=== PATIENT | female | born 1930 | race Caucasian/White ===

== ENCOUNTER 2022-01-30 22:06 | Inpatient (IN) ==
[2022-01-30 22:44] LABS: Basophils # (auto) 0.03 K/uL (0-0.2); Basophils % (auto) 0.5 %; Eosinophils # (auto) 0.22 K/uL (0-0.50); Eosinophils % (auto) 3.4 %; Hematocrit (blood only) 34.1 % (34.1-44.9); Hemoglobin 11.4 g/dl (12.0-16.0); Immature Granulocytes # (auto) 0.13 K/uL (0.00-0.02); Lymphocytes % (auto) 26.6 %; Mean Corpuscular Hemoglobin 29.8 pg (25.0-34.0); Mean Corpuscular Hgb Conc 33.4 g/dL (32.0-36.0); Mean Corpuscular Volume 89.3 fL (80.0-100.0); Mean Platelet Volume 10.4 fL (9.4-12.3); Monocytes # (auto) 0.52 K/uL (0.24-0.82); Monocytes % (auto) 8.2 %; Neutrophils # (auto) 3.78 K/uL (1.4-6.5); Neutrophils % (auto) 59.3 %; Platelet Count 207 K/uL (130-400); Red Blood Count 3.82 M/uL (3.93-5.22); White Blood Count 6.38 K/ul (4.8-10.8)
[2022-01-30 23:03] LABS: Albumin Globulin Ratio 1.4 (0.9-2); Albumin Level 4.6 gm/dl (3.4-5.0); BUN Creatinine Ratio 20.6 (10-20); Bilirubin,Total 0.7 mg/dl (0.2-1.0); Calcium 9.4 mg/dl (8.5-10.1); Creatinine Clr Calc Pharmacy 20.6 ml/min; Est GFR (African American) 53.3 ml/min; Globulin 3.4 gm/dl (2.5-4.0); Potassium 4.1 mmol/L (3.5-5.1)
--- NOTE | 2022-01-30 23:04 | Emergency Department Note ---
Impression & Plan Falls, Confusion, Acute UTI, Compression fracture ED Provider Note Provider: Benigno Veliz MD DATE OF SERVICE: 01/30/2022 CHIEF COMPLAINT: Falls, concern for UTI HISTORY OF PRESENT ILLNESS: Patient is a 89-year-old female history of hypothyroidism presenting from [place] where she lives reporting that she had 3 falls in the last day and the staff become concerned for possible UTI. Patient does complain of some lower back discomfort after the fall tonight. Ambulance personnel informed us that the patient may be a bit altered compared to her normal baseline and sounds who at bedside agrees. Denies significant pain in the arms or legs but states that she feels cold. Denies shortness of breath. Cannot clearly give a history of how she fell or the exact details of the falls. Talks about the computer light distracting her. Seems a bit confused. Denies abdominal pain but reports pain in her low back and right lower back. Son agrees that she is not herself and confirms that she is not on blood thinners. History of recurrent UTIs by his report. REVIEW OF SYSTEMS: A total of 10 review of systems was obtained and negative except as stated above in the HPI. PAST MEDICAL HISTORY: As noted above MEDICATIONS: Reviewed home medications reportedly currently on Cipro SOCIAL HISTORY: Resides at [place] assisted living facility PHYSICAL EXAM: GENERAL: alert and oriented to person but fatigued in appearance and not a good historian in no acute distress on stretcher Head: normocephalic and atraumatic EYES: No injection, discharge or icterus. PERRL, EOMI. NECK: Trachea midline. Supple. ENT: Mucous membranes pink and moist. LUNGS: Airway patent. No retractions. Breath sounds diminished. On home oxygen. HEART: Regular rate and rhythm. No chest wall tenderness ABDOMEN: Soft and non-tender, without guarding or rebound. BACK: Some right flank and SI joint pain. SKIN: Acyanotic, warm, dry, without rashes EXTREMITIES: Without swelling, tenderness or deformity with some healing contusion of the lower feet. No new contusion or laceration noted. No tenderness of the bilateral knees legs or ankles/feet. Tenderness with range of motion of the right greater than left hip. No significant tenderness of the upper extremities noted obvious traumatic injury. NEUROLOGICAL: No aphasia. No facial droop or slurred speech. Limited movement of the lower extremities due to pain at the hips. Sensation to gross touch normal. A bit confused regarding history. EK bpm normal sinus rhythm. Right bundle branch block is present with left axis. No acute ST segment elevation with nonspecific T wave changes. QTc 484. CONTINUOUS CARDIAC MONITORING: was ordered and showed a heart rate of 70s-90s bpm in normal sinus rhythm with right bundle branch My interpretation of 1 view chest x-ray: No evidence of free air, pneumonia, pneumothorax, or significant pulmonary edema. My interpretation of Pelvis and right hip x-ray without evidence of acute fracture or dislocation. GCS 14 somewhat confused and answers Patient's laboratory studies and imaging reviewed. Differential includes traumatic injury, infection, dehydration, metabolic abnormality, hypo/hyperglycemia, electrolyte disturbance, anemia, hypoxia, cardiac sources, intracerebral event, toxicologic, neurologic, as well as other pathologies. IMPRESSION/MEDICAL DECISION MAKING: Patient appears a bit confused. History of UTIs currently on Cipro. Straight cath be obtained. Basic labs to be obtained. Multiple falls. Some pain in the hips with movement. Given the confusion and multiple falls a complete trauma fuller scan without contrast given her age. Blood work without significant leukocytosis. No severe chemistry abnormality such as electrolyte issue or renal dysfunction. TSH is abnormal but doubt she is in myxedema coma. No fever here. CK minimally elevated but not enough for rhabdo yet. Negative COVID. Troponin not elevated and doubt this is primarily cardiac. Mild anemia. Benign abdomen on clinical exam. Patient on baseline oxygen requirement however little bit borderline around 90% with the 4 L she normally wears. Some component of the confusion could be related to the Cipro she is on. Urinalysis very concerning for still infection. Reviewed prior microbiology history of ESBL. Multiple resistances. Given a dose of ertapenem. This very well could explain her confusion. Imaging report questioned a T12 fracture may explain her pain as well as some question of possibly a T3 or T9 compression fracture. CAT scan also questions a 1.5 cm mass in the left lower lobe could be pneumonia versus other oncological or benign mass. Again getting antibiotics. Will need to be followed up and son alerted. He is updated and agreeable with the plan to stay. Given ESBL and her confusion will require care here at the hospital. Hospitalist alerted. DIAGNOSIS: Fall, confusion, acute UTI, T3,9,12 compression fracture DISPOSITION: Hospitalist will evaluate Patient was agreeable with this plan. Preliminary Findings Only See Final Report For Complete Findings CT C SPINE: Negative for cervical spine fracture or malalignment. Degenerative changes and osteopenia. Status post multilevel cervical and upper thoracic laminectomies. Incidental note is made of a prominent right jugular vein. Radiologist: Alex Hale MD Study ready at 00:21 and initial results transmitted at 01:01 Preliminary Findings Only See Final Report For Complete Findings CT ABDOMEN & PELVIS Without Contrast: There is slight loss of height of the T12 vertebral body. This is a new finding compared to a prior scan on October 18, 2021. If the patient has had falls and back pain, this could be acute. Please correlate with pain/tenderness to this particular area. Healing right L3 transverse process fracture noted. The remainder of the visualized osseous structures are intact. No evidence of abdominal pelvic visceral injury. Liver, spleen, pancreas, adrenal glands, kidneys, urinary bladder and bowel all appear intact. No pneumoperitoneum or ascites. Radiologist: Alex Hale MD Study ready at 00:20 and initial results transmitted at 01:10 Preliminary Findings Only See Final Report For Complete Findings CT CHEST Without Contrast: Mild compression fracture superior endplate of T12 noted. Not present on a prior CT abdomen and pelvis from October 18, 2021. If there has been trauma in this area, it could be acute. There is another mild superior endplate compression of T9 as well as a partial compression of the T3 vertebral body involving both superior and inferior endplates. These have no prior scans available for comparison and the fractures are of indeterminate age. None of the above fractures have significant retropulsion. No narrowing of the spinal canal due to these fractures. Old fractures of the left ninth through 12th ribs posteriorly. Old right 10th rib fracture. There is a 3 cm x 1.5 cm masslike area of consolidation in the left lower lobe posteriorly. Uncertain if it is a focal pneumonia, true lung mass, or related to trauma. Not present on the scan of October 18, 2021. This should be followed up. There are mild atelectatic changes at the lung bases bilaterally. No pneumothorax or pneumomediastinum. Cardiomegaly. No pericardial effusions. Radiologist: Alex Hale MD Study ready at 00:20 and initial results transmitted at 01:28 Preliminary Findings Only See Final Report For Complete Findings CT HEAD: Involutional changes. No acute intracranial abnormality. No hemorrhage. Osseous structures are intact. Radiologist: Alex Hale MD Study ready at 00:20 and initial results transmitted at 01:31 Past Med/Surg History Medical History Anxiety Depression Seizures Social History Smoking Status: Never smoker Preferred Language: Belgian Feels Safe at Home: Yes Allergies Allergies Allergy/AdvReac Type Severity Reaction Status Date / Time amitriptyline Allergy Unknown Unverified 12/16/21 19:15 celecoxib [From Celebrex] Allergy Unknown Unverified 12/16/21 19:15 cyclobenzaprine [From Amrix] Allergy Unknown Unverified 12/16/21 19:15 divalproex sodium Allergy Unknown Unverified 12/16/21 19:15 [From Depakote] iodine Allergy Unknown Unverified 12/16/21 19:15 scopolamine Allergy Unknown Unverified 12/16/21 19:15 tegaserod [From Zelnorm] Allergy Unknown Unverified 12/16/21 19:15 zolpidem Allergy Unknown Unverified 12/16/21 19:15 Home Meds Home Medications Medication Instructions Recorded Confirmed acetaminophen 325 mg tablet 650 mg PO Q4 PRN Fever Or Pain 10/18/21 12/16/21 (Tylenol) ascorbic acid (vitamin C) 500 mg 500 mg PO DAILY 10/18/21 12/16/21 tablet (Vitamin C) [id number]-[id number] 250 1 tab PO Q6H PRN Pain 10/18/21 12/16/21 mg-250 mg-65 mg tablet (Excedrin Extra Strength) betamethasone valerate 0.1 % 1 applic topical BID PRN dermatitis 10/18/21 12/16/21 topical ointment ciprofloxacin HCl 250 mg tablet 250 mg PO DAILY 10/18/21 12/16/21 (Cipro) escitalopram oxalate 20 mg tablet 20 mg PO QAM depression 10/18/21 12/16/21 esomeprazole magnesium 40 mg 40 mg PO DAILYBB GERD 10/18/21 12/16/21 capsule,delayed release fluticasone propionate 220 2 inh inhalation BID 10/18/21 12/16/21 mcg/actuation HFA aerosol inhaler (Flovent HFA) fremanezumab-vfrm 225 mg/1.5 mL 225 mg subcut MONTHLY 10/18/21 12/16/21 subcutaneous syringe (Ajovy Syringe) gabapentin 100 mg capsule 200 mg PO BID 10/18/21 12/16/21 hydroxyzine HCl 10 mg tablet 10 mg PO QAM PRN Itching 10/18/21 12/16/21 hydroxyzine HCl 25 mg tablet 25 mg PO HS PRN Itching 10/18/21 12/16/21 levocetirizine 5 mg tablet 5 mg PO BID 10/18/21 12/16/21 levothyroxine 50 mcg tablet 50 mcg PO DAILYBB 10/18/21 12/16/21 lifitegrast 5 % eye drops in a 1 drp OPB BID 10/18/21 12/16/21 dropperette (Xiidra) linaclotide 145 mcg capsule 145 mcg PO DAILY 10/18/21 12/16/21 (Linzess) liothyronine 5 mcg tablet 5 mcg PO QAM 10/18/21 12/16/21 mirtazapine 15 mg tablet (Remeron) 7.5 mg PO HS 10/18/21 12/16/21 multivitamin 1 tab PO DAILY 10/18/21 12/16/21 ondansetron HCl 4 mg tablet 4 mg PO Q8 PRN Nausea And Vomiting 10/18/21 12/16/21 paraben-cetyl alcohol-stearyl 1 applic topical BID 10/18/21 12/16/21 alcohol-propy glycol-sls topical signs cleaner (Cetaphil topical cleanser) quetiapine 50 mg tablet,extended 100 mg PO BID 10/18/21 12/16/21 release 24 hr (Seroquel XR) rosuvastatin 5 mg tablet (Crestor) 5 mg PO HS 10/18/21 12/16/21 sennosides 8.6 mg-docusate sodium 2 tab-cap PO HS PRN Constipation 10/18/21 12/16/21 50 mg capsule (Senna Plus) tamsulosin 0.4 mg capsule (Flomax) 0.8 mg PO HS 10/18/21 12/16/21 topiramate 50 mg tablet (Topamax) 50 mg PO BID 10/18/21 12/16/21 Isatu-Bid 1 cap PO BID 12/16/21 12/16/21 dextran 70-hypromellose eye drops 1 drp OPB QID PRN Dry Eye(S) 12/16/21 12/16/21 in a dropperette (Artificial Tears (PF) drops in a dropperette) dimethicone 1.2 %-colloidal 1 ea topical BID 12/16/21 12/16/21 oatmeal lotion (Aveeno Daily Moisturizing) hydrocortisone 1 % topical cream 1 applic topical TID PRN itchiness 12/16/21 12/16/21 ipratropium 20 mcg-albuterol 100 1 puff inhalation .Q 6 HRS WHILE 12/16/21 12/16/21 mcg/actuation mist for inhalation AWAKE (Combivent Respimat) ketorolac 10 mg tablet 10 mg PO Q6H PRN Migraine Headache 12/16/21 12/16/21 megestrol 400 mg/10 mL (40 mg/mL) 400 mg PO DAILY 12/16/21 12/16/21 oral suspension potassium bicarbonate-citric acid 25 meq PO BID 12/16/21 12/16/21 25 mEq effervescent tablet (Effer-K) tramadol 50 mg tablet 50 mg PO BID 12/16/21 12/16/21 triamcinolone acetonide 0.1 % 1 applic topical BID PRN bursitis 12/16/21 12/16/21 topical ointment vit C 250 mg-vit E 90 mg-zinc 40 1 tab PO DAILY 12/16/21 12/16/21 mg-copper 1 fc-[id number]-ospcyc capsule (PreserVision AREDS-2) Results & Data (ED) Vital Signs Vital Signs - 24 hr 01/30/22 22:28 01/30/22 22:35 01/30/22 23:42 Temperature 36.6 C Temperature Source Oral Pulse Rate 70 70 Pulse Rate [Finger] 85 Pulse Rhythm Regular Regular Pulse Strength Normal Respiratory Rate 20 20 18 Respiratory Effort / Characteristics Non-Labored Spontaneous Non-Labored Spontaneous Respiratory Depth Normal Normal Respiratory Pattern Regular Blood Pressure 139/68 Blood Pressure [Right Arm] 109/78 Blood Pressure Mean 91 Blood Pressure Mean [Right Arm] 88 Blood Pressure Position Lying Blood Pressure Position [Right Arm] Sitting Pulse Oximetry 91 92 92 Oxygen Delivery Method Nasal Cannula Nasal Cannula Nasal Cannula Oxygen Flow Rate 4 4 4 Sepsis Recent Fever Within 48 Hours No Sepsis New/Unexplained Change in Mental Status N/A Sepsis Action Taken by Nursing No Action Required 01/31/22 01:17 Temperature Temperature Source Pulse Rate Pulse Rate [Finger] 108 H Pulse Rhythm Pulse Strength Respiratory Rate 18 Respiratory Effort / Characteristics Non-Labored Spontaneous Respiratory Depth Normal Respiratory Pattern Blood Pressure Blood Pressure [Right Arm] 126/66 Blood Pressure Mean Blood Pressure Mean [Right Arm] 86 Blood Pressure Position Blood Pressure Position [Right Arm] Lying Pulse Oximetry 93 Oxygen Delivery Method Nasal Cannula Oxygen Flow Rate 4 Sepsis Recent Fever Within 48 Hours Sepsis New/Unexplained Change in Mental Status Sepsis Action Taken by Nursing Laboratory Data Result diagrams: 01/30/22 22:21 01/30/22 22:21 Lab Results 01/30/22 01/30/22 01/30/22 Range/Units 22:21 22:21 22:21 WBC 6.38 (4.8-10.8) K/ul RBC 3.82 L (3.93-5.22) M/uL Hgb 11.4 L (12.0-16.0) g/dl Hct 34.1 (34.1-44.9) % MCV 89.3 (80.0-100.0) fL MCH 29.8 (25.0-34.0) pg MCHC 33.4 (32.0-36.0) g/dL RDW Std Deviation 55.0 H (36.4-46.3) fL RDW Coeff of Nancy 17.0 H (11.5-14.5) % Plt Count 207 (130-400) K/uL MPV 10.4 (9.4-12.3) fL Immature Gran % (Auto) 2.0 % Neut % (Auto) 59.3 % Lymph % (Auto) 26.6 % [place] % (Auto) 8.2 % Eos % (Auto) 3.4 % Baso % (Auto) 0.5 % Neut # (Auto) 3.78 (1.4-6.5) K/uL Lymph # (Auto) 1.70 (1.2-3.4) K/uL [place] # (Auto) 0.52 (0.24-0.82) K/uL Eos # (Auto) 0.22 (0-0.50) K/uL Baso # (Auto) 0.03 (0-0.2) K/uL Immature Gran # (Auto) 0.13 H (0.00-0.02) K/uL Sodium 138 (136-145) mmol/L Potassium 4.1 (3.5-5.1) mmol/L Chloride 107 (98-107) mmol/L Carbon Dioxide 21 (21-32) mmol/L Anion Gap 10 (3-11) BUN 22 (6-23) mg/dl Creatinine 1.07 (0.6-1.2) mg/dl Est Cr Clr Drug Dosing 20.6 ml/min Est GFR ( Amer) 53.3 ml/min Est GFR (Non-Af Amer) 46.0 ml/min BUN/Creatinine Ratio 20.6 H (10-20) Glucose 86 (70-99(Fasting)) mg/dl Calcium 9.4 (8.5-10.1) mg/dl Total Bilirubin 0.7 (0.2-1.0) mg/dl AST 31 (13-39) U/L ALT 20 (7-52) U/L Alkaline Phosphatase 74 (34-104) U/L Total Creatine Kinase 476 H (26-192) U/L Troponin I High Sens 9.3 (0-14) pg/ml Total Protein 8.0 (6.0-8.3) gm/dl Albumin 4.6 (3.4-5.0) gm/dl Globulin 3.4 (2.5-4.0) gm/dl Albumin/Globulin Ratio 1.4 (0.9-2) TSH 26.610 H (0.300-4.500) uIu/ml Free T4 0.45 L (0.61-1.60) ng/dl Urine Color Urine Appearance (Clear) Urine pH (4.5-7.5) Ur Specific [place] (1.000-1.030) Urine Protein (Negative) Urine Glucose (UA) (Negative) Urine Ketones (Negative) Urine Blood (Negative) Urine Nitrite (Negative) Urine Bilirubin (Negative) Urine Urobilinogen (Negative) Ur Leukocyte Esterase (Negative) Urine WBC (Auto) (0-5) /hpf Urine RBC (Auto) (0-4) /hpf U Hyaline Cast (Auto) (0-5) /lpf U Epithel Cells (Auto) (0-5) /lpf Urine Bacteria (Auto) (Negative) SARS-CoV-2, RNA, NAAT (NEGATIVE) 01/30/22 01/30/22 Range/Units 22:25 23:39 WBC (4.8-10.8) K/ul RBC (3.93-5.22) M/uL Hgb (12.0-16.0) g/dl Hct (34.1-44.9) % MCV (80.0-100.0) fL MCH (25.0-34.0) pg MCHC (32.0-36.0) g/dL RDW Std Deviation (36.4-46.3) fL RDW Coeff of Nancy (11.5-14.5) % Plt Count (130-400) K/uL MPV (9.4-12.3) fL Immature Gran % (Auto) % Neut % (Auto) % Lymph % (Auto) % [place] % (Auto) % Eos % (Auto) % Baso % (Auto) % Neut # (Auto) (1.4-6.5) K/uL Lymph # (Auto) (1.2-3.4) K/uL [place] # (Auto) (0.24-0.82) K/uL Eos # (Auto) (0-0.50) K/uL Baso # (Auto) (0-0.2) K/uL Immature Gran # (Auto) (0.00-0.02) K/uL Sodium (136-145) mmol/L Potassium (3.5-5.1) mmol/L Chloride (98-107) mmol/L Carbon Dioxide (21-32) mmol/L Anion Gap (3-11) BUN (6-23) mg/dl Creatinine (0.6-1.2) mg/dl Est Cr Clr Drug Dosing ml/min Est GFR ( Amer) ml/min Est GFR (Non-Af Amer) ml/min BUN/Creatinine Ratio (10-20) Glucose (70-99(Fasting)) mg/dl Calcium (8.5-10.1) mg/dl Total Bilirubin (0.2-1.0) mg/dl AST (13-39) U/L ALT (7-52) U/L Alkaline Phosphatase (34-104) U/L Total Creatine Kinase (26-192) U/L Troponin I High Sens (0-14) pg/ml Total Protein (6.0-8.3) gm/dl Albumin (3.4-5.0) gm/dl Globulin (2.5-4.0) gm/dl Albumin/Globulin Ratio (0.9-2) TSH (0.300-4.500) uIu/ml Free T4 (0.61-1.60) ng/dl Urine Color Yellow Urine Appearance Cloudy A (Clear) Urine pH 7.5 (4.5-7.5) Ur Specific [place] 1.019 (1.000-1.030) Urine Protein Negative (Negative) Urine Glucose (UA) Negative (Negative) Urine Ketones Negative (Negative) Urine Blood Negative (Negative) Urine Nitrite Positive A (Negative) Urine Bilirubin Negative (Negative) Urine Urobilinogen Negative (Negative) Ur Leukocyte Esterase 2+ H (Negative) Urine WBC (Auto) >30 H (0-5) /hpf Urine RBC (Auto) 0-4 (0-4) /hpf U Hyaline Cast (Auto) 1-5 (0-5) /lpf U Epithel Cells (Auto) 0-5 (0-5) /lpf Urine Bacteria (Auto) 4+ H (Negative) SARS-CoV-2, RNA, NAAT NEGATIVE (NEGATIVE) Administered Medications Discontinued Medications Ertapenem 500 mg/ Syringe 5 mls @ 2 mls/min IV ONCE ONE Stop: 01/31/22 00:33 Last Admin: 01/31/22 00:55 Dose: 2 mls/min Documented By: CC Discharge Plan Visit Data Chief Complaint: Fall ED Provider: Benigno Veliz Discharge Problem: Falls, Confusion, Acute UTI, Compression fracture Patient Disposition: Being Evaluated by Hospitalist Forms Stand Alone Forms: My [facility] Prescriptions Prescriptions: No Action Ajovy Syringe 225 mg/1.5 mL syringe 225 mg SUBCUT MONTHLY Rx Instructions: administer on Friday of every month ascorbic acid (vitamin C) [Vitamin C] 500 mg Tablet 500 mg PO DAILY ciprofloxacin HCl [Cipro] 250 mg Tablet 250 mg PO DAILY escitalopram oxalate 20 mg tablet 20 mg PO QAM esomeprazole magnesium 40 mg capsule,delayed release(DR/EC) 40 mg PO DAILYBB fluticasone propionate [Flovent HFA] 220 mcg/actuation HFA aerosol inhaler 2 inh INHALATION BID Rx Instructions: 2 puffs into lungs 2 times a day gabapentin 100 mg capsule 200 mg PO BID levocetirizine 5 mg tablet 5 mg PO BID levothyroxine 50 mcg tablet 50 mcg PO DAILYBB Linzess 145 mcg capsule 145 mcg PO DAILY liothyronine 5 mcg tablet 5 mcg PO QAM mirtazapine [Remeron] 15 mg Tablet 7.5 mg PO HS Rx Instructions: take 1/2 tablet by mouth at bedtime multivitamin Tablet 1 tab PO DAILY hydroxyzine HCl 10 mg tablet 10 mg PO QAM PRN (Reason: Itching) hydroxyzine HCl 25 mg tablet 25 mg PO HS PRN (Reason: Itching) ondansetron HCl [Zofran] 4 mg Tablet 4 mg PO Q8 PRN (Reason: Nausea And Vomiting) Excedrin Extra Strength 250-250-65 mg Tablet 1 tab PO Q6H MDD 4 doses PRN (Reason: Pain) Rx Instructions: do not exceed for doses in 24 hours Senna Plus 8.6-50 mg Capsule 2 tab-cap PO HS PRN (Reason: Constipation) Rx Instructions: take 2 tabs (17.2/100 mg) by mouth at bedtime for constipation betamethasone valerate 0.1 % ointment 1 applic TOPICAL BID PRN (Reason: dermatitis) quetiapine [Seroquel XR] 50 mg Tablet Extended Release 24 Hr 100 mg PO BID Rx Instructions: take 2 tablets by mouth twice a day rosuvastatin [Crestor] 5 mg Tablet 5 mg PO HS tamsulosin [Flomax] 0.4 mg Capsule 0.8 mg PO HS Rx Instructions: 2 capsule dose topiramate [Topamax] 50 mg Tablet 50 mg PO BID Xiidra 5 % dropperette 1 drp OPB BID Cetaphil Cleanser 1 applic TOPICAL BID acetaminophen [Tylenol] 325 mg Tablet 650 mg PO Q4 MDD 3g PRN (Reason: Fever Or Pain) Rx Instructions: use for temperature > 100f or mild pain Combivent Respimat 20-100 mcg/actuation Mist 1 puff INHALATION .Q 6 HRS WHILE AWAKE Effer-K 25 mEq Tablet, Effervescent 25 meq PO BID Rx Instructions: dissolve 1 tablet in 4 ounces of water & drink 2 times a day with meals and sip slowly over 5-10 minutes megestrol 400 mg/10 mL (40 mg/mL) suspension 400 mg PO DAILY Rx Instructions: take 10 ml dose PreserVision AREDS-2 250-90-40-1 mg Capsule 1 tab PO DAILY tramadol 50 mg tablet 50 mg PO BID Isatu-Bid 1 cap PO BID Aveeno Daily Moisturizing 1.2 % Lotion 1 ea TOPICAL BID Rx Instructions: apply to areas on back for itching ketorolac 10 mg Tablet 10 mg PO Q6H PRN (Reason: Migraine Headache) Rx Instructions: do not take with migraine relief medications Artificial Tears (PF) Dropperette 1 drp OPB QID PRN (Reason: Dry Eye(S)) hydrocortisone 1 % Cream 1 applic TOPICAL TID PRN (Reason: itchiness) triamcinolone acetonide 0.1 % Ointment 1 applic TOPICAL BID PRN (Reason: bursitis) Referrals Referrals: [facility] [Primary Care Provider] -
[2022-01-30 23:10] LABS: Troponin I High Sensitivity 9.3 pg/ml (0-14)
[2022-01-30 23:18] LABS: Thyroid Stimulating Hormone 26.61 uIu/ml (0.300-4.500)
[2022-01-30 23:52] LABS: T4 Free Thyroxine 0.45 ng/dl (0.61-1.60)
[2022-01-30 23:57] LABS: Appearance Urine Cloudy (Clear); Bacteria Urine Automated 4+ (Negative); Bilirubin Urine Negative (Negative); Blood Urine Negative (Negative); Color Urine Yellow; Epithelial Cell Urine Auto 0-5 /lpf (0-5); Glucose Urine UA Negative (Negative); Ketones Urine Negative (Negative); Leukocyte Esterase Urine 2+ (Negative); Nitrite Urine Positive (Negative); Protein Urine Negative (Negative); RBC Urine Automated 0-4 /hpf (0-4); Specific Gravity Urine 1.019 (1.000-1.030); Urobilinogen Urine Negative (Negative); WBC Urine Automated >30 /hpf (0-5); pH Urine 7.5 (4.5-7.5)
[2022-01-31] MEDS ORDERED: ERTAPENEM SODIUM 500 MG in SYRINGE 0 ML IV ONE (00:31)
--- NOTE | 2022-01-31 01:48 | History & Physical Report ---
Date of Service January 31, 2022 Assessment & Plan (1) Acute hypoxemic respiratory failure: Plan: Secondary to COPD exacerbation secondary to possible aspiration pneumonia Complicated UTI hx recurrent UTIs (history of ESBL organism) on chronic ciprofloxacin suppress ion Rx History overactive bladder as per records No sepsis for now Thoracic compression fracture secondary to recurrent falls History ambulatory dysfunction Mild rhabdomyolysis secondary to fall hx TIA hyperlipidemia on statin Rx GERD, stable on regimen hypothyroidism, TSH elevated with low FT4 New onset anemia, FOBT done at the ER was negative mood disorder, at baseline mild dementia as per family, some confusion from baseline secondary to illness Medical telemetry Supplemental O2 Baseline ABG Nebs, steroid course Ertapenem for possible aspiration pneumonia, complicated UTI (hx ESBL) Urology consult as per patient family request Re: Recurrent UTIs May benefit from ID consult pending final urine CS results Aspiration precautions, swallow eval Lidoderm patch for thoracic compression fracture Orthopedic spine consult Re: Thoracic compression fracture PT OT eval Follow CPK response to IVF Appropriate hold statin for now Anemia work-up, transfuse PRBC if hemoglobin less than 8 and for symptomatic anemia Increase maintenance levothyroxine dose from 50 to 75 mcg daily and recheck TSH outpatient next month DVT prophylaxis Lovenox subcu DNR as per patient's prior directives as per son/POA, Mr. Nicolas Joshi. He requests updates from providers through [phone]. Total critical care time was 45 minutes. Text document was generated using [employer] - [employer] voice recognition software. It may contain grammatical or spelling errors. Kindly contact undersigned for clarification of any documentation item in question. History of Present Illness Chief Complaint: Confusion, weakness, recurrent falls Primary Care Provider: Dr. Kermit Oreilly of [place] History obtained from patient, family, and records. Medical history significant for COPD, hx TIA, hyperlipidemia, hypothyroidism, recurrent UTIs (history of ESBL organism) on chronic ciprofloxacin suppression Rx, history of overactive bladder as per records, GERD, hypothyroidism, mood disorder, mild dementia as per family. Patient moved to local personal care facility from [facility] last October 2021 to be close to her son who lives locally. Patient noted to be more confused than usual the last week as per son. 3 falls noted yesterday Patient complaining of low back discomfort after fall. Back pain going to the legs as per patient. No fever, no chills. Patient denies chest pain, no shortness of breath. Patient noted to be coughing by son. Aspiration concerns as per son. O2 sats noted to be 80s at 1 point during ER stay. Ertapenem administered at the ER. Medical History as above Surgical History : neck surgeries, ARISTEO Family History : Heart disease, DM, stroke Personal/Social history : Non-smoker, no EtOH intake, retired infection control nurse, [facility] [facility] resident Allergies Allergy/AdvReac Type Severity Reaction Status Date / Time amitriptyline Allergy Unknown Unverified 12/16/21 19:15 celecoxib [From Celebrex] Allergy Unknown Unverified 12/16/21 19:15 cyclobenzaprine [From Amrix] Allergy Unknown Unverified 12/16/21 19:15 divalproex sodium Allergy Unknown Unverified 12/16/21 19:15 [From Depakote] iodine Allergy Unknown Unverified 12/16/21 19:15 scopolamine Allergy Unknown Unverified 12/16/21 19:15 tegaserod [From Zelnorm] Allergy Unknown Unverified 12/16/21 19:15 zolpidem Allergy Unknown Unverified 12/16/21 19:15 Home Medications Medication Instructions Recorded Confirmed Type acetaminophen 325 mg tablet 650 mg PO Q4 PRN Fever Or Pain 10/18/21 12/16/21 History (Tylenol) ascorbic acid (vitamin C) 500 mg 500 mg PO DAILY 10/18/21 12/16/21 History tablet (Vitamin C) mbyrdje-wxvjdwhumzfkl-uqjghboq 250 1 tab PO Q6H PRN Pain 10/18/21 12/16/21 History mg-250 mg-65 mg tablet (Excedrin Extra Strength) betamethasone valerate 0.1 % 1 applic topical BID PRN dermatitis 10/18/21 1008/22 History topical ointment ciprofloxacin HCl 250 mg tablet 250 mg PO DAILY 10/18/21 12/16/21 History (Cipro) escitalopram oxalate 20 mg tablet 20 mg PO QAM depression 10/18/21 12/16/21 History esomeprazole magnesium 40 mg 40 mg PO DAILYBB GERD 10/18/21 12/16/21 History capsule,delayed release fluticasone propionate 220 2 inh inhalation BID 10/18/21 12/16/21 History mcg/actuation HFA aerosol inhaler (Flovent HFA) fremanezumab-vfrm 225 mg/1.5 mL 225 mg subcut MONTHLY 10/18/21 12/16/21 History subcutaneous syringe (Ajovy Syringe) gabapentin 100 mg capsule 200 mg PO BID 10/18/21 12/16/21 History hydroxyzine HCl 10 mg tablet 10 mg PO QAM PRN Itching 10/18/21 12/16/21 History hydroxyzine HCl 25 mg tablet 25 mg PO HS PRN Itching 10/18/21 12/16/21 History levocetirizine 5 mg tablet 5 mg PO BID 10/18/21 12/16/21 History levothyroxine 50 mcg tablet 50 mcg PO DAILYBB 10/18/21 12/16/21 History lifitegrast 5 % eye drops in a 1 drp OPB BID 10/18/21 12/16/21 History dropperette (Xiidra) linaclotide 145 mcg capsule 145 mcg PO DAILY 10/18/21 12/16/21 History (Linzess) liothyronine 5 mcg tablet 5 mcg PO QAM 10/18/21 12/16/21 History mirtazapine 15 mg tablet (Remeron) 7.5 mg PO HS 10/18/21 12/16/21 History multivitamin 1 tab PO DAILY 10/18/21 12/16/21 History ondansetron HCl 4 mg tablet 4 mg PO Q8 PRN Nausea And Vomiting 10/18/21 12/16/21 History quetiapine 50 mg tablet,extended 100 mg PO BID 10/18/21 12/16/21 History release 24 hr (Seroquel XR) rosuvastatin 5 mg tablet (Crestor) 5 mg PO HS 10/18/21 12/16/21 History sennosides 8.6 mg-docusate sodium 2 tab-cap PO HS PRN Constipation 10/18/21 12/16/21 History 50 mg capsule (Senna Plus) tamsulosin 0.4 mg capsule (Flomax) 0.8 mg PO HS 10/18/21 12/16/21 History topiramate 50 mg tablet (Topamax) 50 mg PO BID 10/18/21 12/16/21 History Isatu-Bid 1 cap PO BID 12/16/21 12/16/21 History dextran 70-hypromellose eye drops 1 drp OPB QID PRN Dry Eye(S) 12/16/21 12/16/21 History in a dropperette (Artificial Tears (PF) drops in a dropperette) dimethicone 1.2 %-colloidal 1 ea topical BID 12/16/21 12/16/21 History oatmeal lotion (Aveeno Daily Moisturizing) hydrocortisone 1 % topical cream 1 applic topical TID PRN itchiness 12/16/21 12/16/21 History ipratropium 20 mcg-albuterol 100 1 puff inhalation .Q 6 HRS WHILE 12/16/21 12/16/21 History mcg/actuation mist for inhalation AWAKE (Combivent Respimat) ketorolac 10 mg tablet 10 mg PO Q6H PRN Migraine Headache 12/16/21 12/16/21 History megestrol 400 mg/10 mL (40 mg/mL) 400 mg PO DAILY 12/16/21 12/16/21 History oral suspension tramadol 50 mg tablet 50 mg PO BID 12/16/21 12/16/21 History triamcinolone acetonide 0.1 % 1 applic topical BID PRN bursitis 12/16/21 12/16/21 History topical ointment vit C 250 mg-vit E 90 mg-zinc 40 1 tab PO DAILY 12/16/21 12/16/21 History mg-copper 1 eg-nfbkmz-ltwmal capsule (PreserVision AREDS-2) Past Med/Surg History Medical History Anxiety Depression Seizures Social History Smoking Status: Unknown if ever smoked Hx Alcohol Use: No Hx Substance Use: No Preferred Language: Yoruba Communication Ability: Effective Waste Minimization Technician Required: No Current Living Situation: Personal Care Facility Current Living Situation Comment: Lives in personal care facility Other Information That Helps Us Care for You: No Feels Safe at Home: Yes Safety Concerns: Feels Safe At This Time Assistive Devices: Oxygen - Continuous Review of Systems Review of Systems: As per HPI, all other systems reviewed and negative Physical Exam Physical Exam: GENERAL: uncomfortable, slightly hard of hearing, oriented to place, no respiratory distress SKIN: Pallor, warm HEENT: Pale palpebral conjunctivae, no ptosis, dry buccal mucosa, nasal cannula in place NECK : Supple, no tenderness CHEST : Decreased breath sounds, no tenderness HEART : RRR, no obvious murmurs ABDOMEN: Some distention, nontender RECTAL : Intact sphincter, brown stool (FOBT negative) BACK :mid back tenderness, negative straight leg raise test EXTREMITIES : Minimal LE swelling, no LE tenderness, no other conspicuous deformities noted NEUROLOGIC : Oriented to place, no facial asymmetry, slightly hard of hearing, gait and stance not assessed Results & Data Results & Data ([facility]) Vital Signs (Past 12 Hours) Vital Signs Temp Pulse Pulse Resp BP BP Pulse Ox 01/31/22 01:17 108 H 18 126/66 93 01/30/22 23:42 85 18 109/78 92 01/30/22 22:35 70 20 92 01/30/22 22:28 36.6 C 70 20 139/68 91 O2 Del Method O2 Flow Rate 01/31/22 01:17 Nasal Cannula 4 01/30/22 23:42 Nasal Cannula 4 01/30/22 22:35 Nasal Cannula 4 01/30/22 22:28 Nasal Cannula 4 Laboratory Results Laboratory Results WBC 6.38 K/ul (4.8-10.8) 01/30/22 22:21 RBC 3.82 M/uL (3.93-5.22) L 01/30/22 22:21 Hgb 11.4 g/dl (12.0-16.0) L 01/30/22 22:21 Hct 34.1 % (34.1-44.9) 01/30/22 22:21 MCV 89.3 fL (80.0-100.0) 01/30/22 22:21 MCH 29.8 pg (25.0-34.0) 01/30/22 22:21 MCHC 33.4 g/dL (32.0-36.0) 01/30/22 22:21 RDW Std Deviation 55.0 fL (36.4-46.3) H 01/30/22 22:21 RDW Coeff of Nancy 17.0 % (11.5-14.5) H 01/30/22 22:21 Plt Count 207 K/uL (130-400) 01/30/22 22:21 MPV 10.4 fL (9.4-12.3) 11/30/22 22:21 Immature Gran % (Auto) 2.0 % 01/30/22 22:21 Neut % (Auto) 59.3 % 01/30/22 22:21 Lymph % (Auto) 26.6 % 01/30/22 22:21 [place] % (Auto) 8.2 % 01/30/22 22:21 Eos % (Auto) 3.4 % 01/30/22 22:21 Baso % (Auto) 0.5 % 01/30/22 22:21 Neut # (Auto) 3.78 K/uL (1.4-6.5) 01/30/22 22:21 Lymph # (Auto) 1.70 K/uL (1.2-3.4) 01/30/22 22:21 [place] # (Auto) 0.52 K/uL (0.24-0.82) 01/30/22 22:21 Eos # (Auto) 0.22 K/uL (0-0.50) 01/30/22 22:21 Baso # (Auto) 0.03 K/uL (0-0.2) 01/30/22 22:21 Immature Gran # (Auto) 0.13 K/uL (0.00-0.02) H 01/30/22 22:21 Sodium 138 mmol/L (136-145) 01/30/22 22:21 Potassium 4.1 mmol/L (3.5-5.1) 01/30/22 22:21 Chloride 107 mmol/L (98-107) 01/30/22 22:21 Carbon Dioxide 21 mmol/L (21-32) 01/30/22 22:21 Anion Gap 10 (3-11) 01/30/22 22:21 BUN 22 mg/dl (6-23) 01/30/22 22:21 Creatinine 1.07 mg/dl (0.6-1.2) 01/30/22 22:21 Est Cr Clr Drug Dosing 20.6 ml/min 01/30/22 22:21 Est GFR ( Amer) 53.3 ml/min 01/30/22 22:21 Est GFR (Non-Af Amer) 46.0 ml/min 01/30/22 22:21 BUN/Creatinine Ratio 20.6 (10-20) H 01/30/22 22:21 Glucose 86 mg/dl (70-99(Fasting)) 01/30/22 22:21 Calcium 9.4 mg/dl (8.5-10.1) 01/30/22 22:21 Total Bilirubin 0.7 mg/dl (0.2-1.0) 01/30/22 22:21 AST 31 U/L (13-39) 01/30/22 22:21 ALT 20 U/L (7-52) 01/30/22 22:21 Alkaline Phosphatase 74 U/L (34-104) 01/30/22 22:21 Total Creatine Kinase 476 U/L (26-192) H 01/30/22 22:21 Troponin I High Sens 9.3 pg/ml (0-14) 01/30/22 22: Total Protein 8.0 gm/dl (6.0-8.3) 01/30/22 22:21 Albumin 4.6 gm/dl (3.4-5.0) 01/30/22 22:21 Globulin 3.4 gm/dl (2.5-4.0) 01/30/22 22:21 Albumin/Globulin Ratio 1.4 (0.9-2) 01/30/22 22:21 TSH 26.610 uIu/ml (0.300-4.500) H 01/30/22 22:21 Free T4 0.45 ng/dl (0.61-1.60) L 01/30/22 22:21 Urine Color Yellow 01/30/22 23:39 Urine Appearance Cloudy (Clear) A 01/30/22 23:39 Urine pH 7.5 (4.5-7.5) 01/30/22 23:39 Ur Specific [place] 1.019 (1.000-1.030) 01/30/22 23:39 Urine Protein Negative (Negative) 01/30/22 23:39 Urine Glucose (UA) Negative (Negative) 01/30/22 23:39 Urine Ketones Negative (Negative) 01/30/22 23:39 Urine Blood Negative (Negative) 01/30/22 23:39 Urine Nitrite Positive (Negative) A 01/30/22 23:39 Urine Bilirubin Negative (Negative) 01/30/22 23:39 Urine Urobilinogen Negative (Negative) 01/30/22 23:39 Ur Leukocyte Esterase 2+ (Negative) H 01/30/22 23:39 Urine WBC (Auto) >30 /hpf (0-5) H 01/30/22 23:39 Urine RBC (Auto) 0-4 /hpf (0-4) 01/30/22 23:39 U Hyaline Cast (Auto) 1-5 /lpf (0-5) 01/30/22 23:39 U Epithel Cells (Auto) 0-5 /lpf (0-5) 01/30/22 23:39 Urine Bacteria (Auto) 4+ (Negative) H 01/30/22 23:39 SARS-CoV-2, RNA, NAAT NEGATIVE (NEGATIVE) 01/30/22 22:[address] head initial read: Involutional changes. No acute intracranial abnormality. No hemorrhage. Osseous structures are intac CT cervical spine initial read: Negative for cervical spine fracture or malalignment. Degenerative changes and osteopenia. Status post multilevel cervical and upper thoracic laminectomies. Incidental note is made of a prominent right jugular vein. CT chest initial read: Mild compression fracture superior endplate of T12 noted. Not present on a prior CT abdomen and pelvis from2021. If there has been trauma in this area, it could be acute. There is another mild superior endplate compression of T9 aswell as a partial compression of the T3 vertebral bodyinvolving both superior and inferior endplates. These have no prior scans available for comparison and the fractures are of indeterminate age. None of the above fractures have significant retropulsion. No narrowing of the spinal canal due to these fractures. Old fractures of the left ninth through 12th ribs posteriorly. Old right 10th rib fracture. There is a 3 cm x 1.5 cmmasslike area of consolidation in the left lower lobe posteriorly. Uncertain if it is a focal pneumonia, true lung mass, or related to trauma. Not present on the scan of October 18, 2021. This should be followed up. There are mild atelectatic changes at the lung bases bilaterally. No pneumothorax or pneumomediastinum. Cardiomegaly. No pericardial effusions. CT abdomen pelvis initial read: There is slight loss of height of the T12 vertebral body. This is a newfinding compared to a prior scan on October 18, 2021. If the patient has had falls and back pain, this could be acute. Please correlate with pain/tenderness to this particular area. Healing right L3 transverse process fracture noted. The remainder of the visualized osseous structures are intact. No evidence of abdominal pelvic visceral injury. Liver, spleen, pancreas, adrenal glands, kidneys, urinarybladder and bowel all appear intact. No pneumoperitoneumor ascites. EKG as per my interpretation : rate 75, NSR, LAD, LAFB, RBBB T wave abnormalities inferior leads
[2022-01-31] MEDS ORDERED: XOPENEX/ATROVENT 1.25mg/0.5MG NEB COMBO NEB STA (02:21)
[2022-01-31] MEDS ORDERED: IPRATROPIUM BROMIDE NEB SOLN 0.02% 2.5 ML VIAL INH STA (02:28)
[2022-01-31] MEDS ORDERED: methylPREDNISolone 20 MG in SYRINGE 0 ML IV STA ×2 (02:29→04:10)
[2022-01-31] MEDS ORDERED: LEVALBUTEROL 1.25MG/0.5ML NEB INH STA (02:29)
[2022-01-31] MEDS ORDERED: SODIUM CHLORIDE 0.9% 1000ML 1,000 ML IV ONE (02:35)
[2022-01-31] MEDS: LIDOCAINE 5% 1 PATCH TD SCH (03:01)
[2022-01-31 03:17] LABS: Base Excess ABG -1.5 mEq/L (-9-1.8); HCO3 ABG 21 mmol/L (19-24); Oxygen Saturation ABG 98.8 % (90-95); PCO2 ABG 29 mmHg (35-46); PO2 ABG 81 mmHg (80-95); pH ABG 7.47 (7.35-7.45)
[2022-01-31 03:18] LABS: Allen Test Pos (Pos)
--- NOTE | 2022-01-31 03:53 | Urology Consultation ---
Date of Consultation January 31, 2022 Assessment & Plan (1) Acute UTI: Patient has been admitted on the hospitalist service secondary to her recent falls. Urology has been asked to evaluate the patient secondary to a recurrent urinary tract infection. Recommend proceeding as follows: As noted the patient had an E. coli urinary tract infection recently with multiple resistances, therefore we recommend continuing broad-spectrum antibiotics. The patient has thus far received ertapenem in the previous urine culture shows that E. coli UTI was sensitive to this medication. Would recommend to continue this medication until most recent culture is available at which time antibiotics can be further tailored based on these results. The primary service has ordered patient to be bladder scanned every 8 hours to evaluate for urinary retention. If patient is noted to have high postvoid residuals consideration be given to either straight cathing the patient and placing a Canas catheter to ensure maximal bladder drainage. Additional recommendations be forthcoming based on future culture results as well as bladder scan results. History of Present Illness History of Present Illness This is an 89-year-old female who presented to [facility] secondary to suffering recurrent falls over the past several days. There is concern from the staff at the patient's facility where she lives that she had a urinary tract infection. I did asked the patient about her fall and she merely said that she just fell on the floor and could not provide any further details. Since her fall she notes some lower back discomfort. She denies any chest pain or shortness of breath. She denies any nausea or vomiting. I did asked the patient about urologic symptoms. She does not report any dysuria. She also denies any urinary frequency. She feels as though she can empty her bladder the hallway when she urinates. Patient's records were reviewed and it does appear the patient had a urinary tract infection on 11/29/2021. Cultures revealed patient had E. coli with multiple resistances. This culture did reveal that the E. coli was sensitive to Zosyn, meropenem, Macrobid, ertapenem, and tobramycin. Patient was unable to tell me any details regarding the treatment of this urinary tract infection. Since arrival to the emergency department at this time the patient has had labs and imaging which independent reviewed. CBC revealed white blood cell count and hematocrit within normal range. Her hemoglobin was slightly low at 11.4. Platelet count was normal. Chemistry profile showed sodium, potassium, BUN, and creatinine were all within normal range. Urinalysis showed cloudy urine with positive nitrites. There is 2+ leukocyte Estrace on the specimen along with greater than 30 white blood cells per high-power field and 4+ bacteria. A COVID test was noted to be negative. A CT scan of the cervical spine showed no fractures or malalignment of the cervical spine. A CT scan of the head showed no acute intracranial abnormalities and no hemorrhage. A CT scan of the chest showed a compression fracture at the T12 level. There are also compression fractures at the T9 and T3 levels as well. Old fractures of the left ninth through 12th ribs posteriorly were noted. There is an old fracture of the right 10th rib. There is concern the patient had a consolidation in the left lower lobe and was unclear if this represented a lung mass or pneumonia. There is no pneumothorax or pneumomediastinum. A CT scan of the abdomen showed a potential compression fracture at the T12 level. There is no evidence of intra-abdominal injury. There is no pneumoperitoneum. At the time of my interview she was resting comfortably in bed and she was not in any distress. Allergies Allergy/AdvReac Type Severity Reaction Status Date / Time amitriptyline Allergy Unknown Unverified 12/16/21 19:15 celecoxib [From Celebrex] Allergy Unknown Unverified 12/16/21 19:15 cyclobenzaprine [From Amrix] Allergy Unknown Unverified 12/16/21 19:15 divalproex sodium Allergy Unknown Unverified 12/16/21 19:15 [From Depakote] iodine Allergy Unknown Unverified 12/16/21 19:15 scopolamine Allergy Unknown Unverified 12/16/21 19:15 tegaserod [From Zelnorm] Allergy Unknown Unverified 12/16/21 19:15 zolpidem Allergy Unknown Unverified 12/16/21 19:15 Home Medications Medication Instructions Recorded Confirmed Type acetaminophen 325 mg tablet 650 mg PO Q4 PRN Fever Or Pain 10/18/21 12/16/21 History (Tylenol) ascorbic acid (vitamin C) 500 mg 500 mg PO DAILY 10/18/21 12/16/21 History tablet (Vitamin C) dsabcsi-urmkoyzccemnu-pxvcoqko 250 1 tab PO Q6H PRN Pain 10/18/21 12/16/21 History mg-250 mg-65 mg tablet (Excedrin Extra Strength) betamethasone valerate 0.1 % 1 applic topical BID PRN dermatitis 10/18/21 12/16/21 History topical ointment ciprofloxacin HCl 250 mg tablet 250 mg PO DAILY 10/18/21 12/16/21 History (Cipro) escitalopram oxalate 20 mg tablet 20 mg PO QAM depression 10/18/21 12/16/21 History esomeprazole magnesium 40 mg 40 mg PO DAILYBB GERD 10/18/21 12/16/21 History capsule,delayed release fluticasone propionate 220 2 inh inhalation BID 10/18/21 12/16/21 History mcg/actuation HFA aerosol inhaler (Flovent HFA) fremanezumab-vfrm 225 mg/1.5 mL 225 mg subcut MONTHLY 10/18/21 12/16/21 History subcutaneous syringe (Ajovy Syringe) gabapentin 100 mg capsule 200 mg PO BID 10/18/21 12/16/21 History hydroxyzine HCl 10 mg tablet 10 mg PO QAM PRN Itching 10/18/21 12/16/21 History hydroxyzine HCl 25 mg tablet 25 mg PO HS PRN Itching 10/18/21 12/16/21 History levocetirizine 5 mg tablet 5 mg PO BID 10/18/21 12/16/21 History levothyroxine 50 mcg tablet 50 mcg PO DAILYBB 10/18/21 12/16/21 History lifitegrast 5 % eye drops in a 1 drp OPB BID 10/18/21 12/16/21 History dropperette (Xiidra) linaclotide 145 mcg capsule 145 mcg PO DAILY 10/18/21 12/16/21 History (Linzess) liothyronine 5 mcg tablet 5 mcg PO QAM 10/18/21 12/16/21 History mirtazapine 15 mg tablet (Remeron) 7.5 mg PO HS 10/18/21 12/16/21 History multivitamin 1 tab PO DAILY 10/18/21 12/16/21 History ondansetron HCl 4 mg tablet 4 mg PO Q8 PRN Nausea And Vomiting 10/18/21 12/16/21 History paraben-cetyl alcohol-stearyl 1 applic topical BID 10/18/21 12/16/21 History alcohol-propy glycol-sls topical laundry or dry cleaners counter clerk (Cetaphil topical cleanser) quetiapine 50 mg tablet,extended 100 mg PO BID 10/18/21 12/16/21 History release 24 hr (Seroquel XR) rosuvastatin 5 mg tablet (Crestor) 5 mg PO HS 10/18/21 12/16/21 History sennosides 8.6 mg-docusate sodium 2 tab-cap PO HS PRN Constipation 10/18/21 12/16/21 History 50 mg capsule (Senna Plus) tamsulosin 0.4 mg capsule (Flomax) 0.8 mg PO HS 10/18/21 12/16/21 History topiramate 50 mg tablet (Topamax) 50 mg PO BID 10/18/21 12/16/21 History Isatu-Bid 1 cap PO BID 12/16/21 12/16/21 History dextran 70-hypromellose eye drops 1 drp OPB QID PRN Dry Eye(S) 12/16/21 12/16/21 History in a dropperette (Artificial Tears (PF) drops in a dropperette) dimethicone 1.2 %-colloidal 1 ea topical BID 12/16/21 12/16/21 History oatmeal lotion (Aveeno Daily Moisturizing) hydrocortisone 1 % topical cream 1 applic topical TID PRN itchiness 12/16/21 12/16/21 History ipratropium 20 mcg-albuterol 100 1 puff inhalation .Q 6 HRS WHILE 12/16/21 12/16/21 History mcg/actuation mist for inhalation AWAKE (Combivent Respimat) ketorolac 10 mg tablet 10 mg PO Q6H PRN Migraine Headache 12/16/21 12/16/21 History megestrol 400 mg/10 mL (40 mg/mL) 400 mg PO DAILY 12/16/21 12/16/21 History oral suspension potassium bicarbonate-citric acid 25 meq PO BID 12/16/21 12/16/21 History 25 mEq effervescent tablet (Effer-K) tramadol 50 mg tablet 50 mg PO BID 12/16/21 12/16/21 History triamcinolone acetonide 0.1 % 1 applic topical BID PRN bursitis 12/16/21 12/16/21 History topical ointment vit C 250 mg-vit E 90 mg-zinc 40 1 tab PO DAILY 12/16/21 12/16/21 History mg-copper 1 yi-mgigte-kujfyo capsule (PreserVision AREDS-2) Patient History Medical History Anxiety Depression Seizures Social History Smoking Status: Never smoker Preferred Language: Armenian Feels Safe at Home: Yes Review of Systems Constitutional: no fever Eyes: no eye pain Ear, Nose, Mouth, Throat: no ear pain Respiratory: no dyspnea Cardiovascular: no chest pain Gastrointestinal: no abdominal pain, no nausea and no vomiting Genitourinary: as per Subjective / HPI Musculoskeletal: + back pain Integumentary: no rash Neurologic: no localized weakness Physical Exam Constitutional: well developed and well nourished; no acute distress Eyes: no conjunctival abnormality ENMT: Ears: no hearing impairment and no external ear abnormality Mouth: no oropharynx abnormality Neck: trachea midline Respiratory: normal respiratory effort; no respiratory distress and no labored breathing Breath sounds a slight decrease at bases. No use of accessory muscles. Cardiovascular: Rate/Rhythm: regular rate and regular rhythm Gastrointestinal (Abdomen): Soft, nontender, nonrigid, and nonpainful to palpation. Musculoskeletal: No calf tenderness Skin: no rashes Neurologic: Patient is able to move all 4 extremities and follows simple commands without noted focal deficits Results & Data ([facility]) Vital Signs (Past 12 Hours) Vital Signs Temp Pulse Pulse Resp BP BP Pulse Ox 01/31/22 03:07 85 20 158/74 H 95 01/31/22 01:17 108 H 18 126/66 93 01/30/22 23:42 85 18 109/78 92 01/30/22 22:35 70 20 92 01/30/22 22:28 36.6 C 70 20 139/68 91 O2 Del Method O2 Flow Rate 01/31/22 03:07 Nebulizer 01/31/22 01:17 Nasal Cannula 4 01/30/22 23:42 Nasal Cannula 4 01/30/22 22:35 Nasal Cannula 4 01/30/22 22:28 Nasal Cannula 4 PG Care Time/CCT Total # of Minutes Spent Total Time Spent with Patient: Total time spent is greater than 50% in coordination of care (as documented) at patient's floor/unit and/or counseling patient: Coding Level of Care Code 28214 Inpt Consult Level 5 Diagnoses Acute UTI N39.0
[2022-01-31] MEDS ORDERED: ARTIFICIAL TEARS OP PRN (05:39)
[2022-01-31] MEDS: LEVALBUTEROL 1.25MG/0.5ML NEB INH SCH ×3 (06:08→20:14)
[2022-01-31] MEDS: IPRATROPIUM BROMIDE NEB SOLN 0.02% 2.5 ML VIAL INH SCH ×3 (06:08→20:15)
[2022-01-31 06:09] LABS: Basophils # (auto) 0.03 K/uL (0-0.2); Basophils % (auto) 0.5 %; Eosinophils # (auto) 0.02 K/uL (0-0.50); Eosinophils % (auto) 0.3 %; Hematocrit (blood only) 35.5 % (34.1-44.9); Hemoglobin 11.9 g/dl (12.0-16.0); Immature Granulocytes # (auto) 0.06 K/uL (0.00-0.02); Immature Granulocytes % (auto) 0.9 %; Lymphocytes # (auto) 0.55 K/uL (1.2-3.4); Lymphocytes % (auto) 8.3 %; Mean Corpuscular Hemoglobin 29.5 pg (25.0-34.0); Mean Corpuscular Hgb Conc 33.5 g/dL (32.0-36.0); Mean Corpuscular Volume 87.9 fL (80.0-100.0); Mean Platelet Volume 10.3 fL (9.4-12.3); Monocytes # (auto) 0.35 K/uL (0.24-0.82); Monocytes % (auto) 5.3 %; Neutrophils # (auto) 5.61 K/uL (1.4-6.5); Neutrophils % (auto) 84.7 %; Platelet Count 211 K/uL (130-400); Red Blood Count 4.04 M/uL (3.93-5.22); White Blood Count 6.62 K/ul (4.8-10.8)
[2022-01-31 06:10] LABS: Reticulocyte % 1.5 % (0.5-2.0); Reticulocytes # 0.06 10^6/uL (0.02-0.10)
[2022-01-31] MEDS: LEVOTHYROXINE SODIUM 75 MCG TABLET PO SCH (06:27)
[2022-01-31] MEDS: LIOTHYRONINE SODIUM 5 MCG TAB PO SCH (06:27)
--- NOTE | 2022-01-31 06:45 | CT Scan Report ---
CT OF THE HEAD WITHOUT CONTRAST CLINICAL HISTORY: falls, confused? COMPARISON STUDY: Head CT December 16, 2021. TECHNIQUE: Helical axial images of the head were obtained without IV contrast. Automated exposure con trol was utilized for the study. A dose lowering technique was utilized adhering to the principles o f ALARA. FINDINGS: No acute intracranial hemorrhage, midline shift or mass effect is present. White matter hyp odensities are unchanged. The ventricular system is unremarkable. The basal cisterns are patent. No e xtra-axial collections are present. There are no findings to suggest acute dural sinus thrombosis or acute territorial infarct. No significant calvarial abnormalities are present. There is no acute calv arial fracture. Sphenoid sinus opacification with adjacent wall thickening is unchanged. This is like ly chronic. IMPRESSION: 1. No acute intracranial findings. No change in appearance of the brain. 2. No acute calvarial fracture. ACT 112: Negative or not required by law. Electronically signed by: Marcus Muro M.D. 01/31/2022 6:43 AM
[2022-01-31 06:49] LABS: BUN Creatinine Ratio 18.9 (10-20); Calcium 8.8 mg/dl (8.5-10.1); Est GFR (African American) 61.5 ml/min; Est GFR (Non-African American) 53.1 ml/min; Potassium 3.5 mmol/L (3.5-5.1)
--- NOTE | 2022-01-31 06:55 | CT Scan Report ---
CT OF THE ABDOMEN AND PELVIS WITHOUT CONTRAST CLINICAL HISTORY: fall, back pain COMPARISON STUDY: CT of the abdomen and pelvis October 18, 2021. Pelvis and right hip radiographs per formed earlier today. TECHNIQUE: Axial images of the abdomen and pelvis were obtained without IV contrast. Images were revi ewed in the axial, sagittal, and coronal planes. Automated exposure control was utilized for the anel dy. A dose lowering technique was utilized adhering to the principles of ALARA. FINDINGS: A trace right pleural effusion is noted. Subpleural opacities within the lower lungs repres ent atelectasis. There are multiple old bilateral lower rib fractures. A T12 vertebral body fracture with mild loss of height and retropulsion is new since CT of October 18, 2021. This extends through th e posterior cortex. No involvement of the posterior elements is identified. This fracture is likely a cute. No additional acute fractures are identified on this exam. There is no pelvic or hip fracture. Evaluation of the solid abdominal viscera is suboptimal on this unenhanced exam. However, there is no evidence for traumatic injury to the liver, spleen, adrenal glands, kidneys or pancreas. A hiatal he rnia is again noted. No evidence for a bowel obstruction. Diverticulosis without evidence for acute d iverticulitis. There is no free fluid. No lymphadenopathy is present. No fluid collection is identifi ed. IMPRESSION: 1. T12 vertebral body fracture with mild loss of height and retropulsion which is new since CT of Oct. This is likely acute. No additional acute fractures. 2. No traumatic findings within the abdomen or pelvis on unenhanced exam. 3. No bowel obstruction. ACT 112: Negative or not required by law. Electronically signed by: Marcus Muro M.D. 01/31/2022 6:53 AM
[2022-01-31] MEDS ORDERED: XOPENEX/ATROVENT 1.25mg/0.5MG NEB COMBO NEB SCH (07:00)
[2022-01-31 07:05] LABS: Ferritin 37.1 ng/ml (8-388)
--- NOTE | 2022-01-31 07:25 | CT Scan Report ---
CERVICAL SPINE CT CT DOSE: 1495.93 mGy.cm HISTORY: fall TECHNIQUE: Multiaxial CT images of the cervical spine were performed and reformatted in the sagittal and coronal plane without the use of contrast. A dose lowering technique was utilized adhering to th e principles of ALARA. COMPARISON: Cervical spine CT 12/16/2021.. FINDINGS: There is an old mild superior endplate compression deformity at T1. This remains unchanged. No acute fracture or subluxation within the cervical spine. Degenerative changes and postoperative c hanges are again noted. Prevertebral soft tissues are intact. No pneumothorax. IMPRESSION: 1. No acute fracture within the cervical spine. 2. No change in the chronic mild superior endplate compression deformity at T1. ACT 112: Negative or not required by law. Electronically signed by: Barak Miller M.D. 01/31/2022 7:24 AM
--- NOTE | 2022-01-31 07:36 | CT Scan Report ---
CT chest diagnostic wo con CT DOSE: HISTORY: Back pain. falls, weak TECHNIQUE: Multiaxial CT images of the chest were performed without contrast. A dose lowering techni que was utilized adhering to the principles of ALARA. COMPARISON: Thoracic spine CT 10/18/2021. FINDINGS: There are subacute to chronic mild endplate compression fractures at T1, T3, T9, and T12. N o acute fractures identified within the thoracic spine. No associated retropulsion. There is a healin g nondisplaced sternal fracture. There are old, healed bilateral rib fractures. Partial resection of the left first rib is noted. The visualized liver, spleen, and adrenal glands are unremarkable. There is a trace right pleural effusion. Normal esophagus. Small to moderate hiatus hernia is noted. The h eart is mildly enlarged. Normal caliber thoracic aorta. No mediastinal or hilar lymphadenopathy. No p neumothorax. The central airways are patent. Focal rounded density within the base of the left lower lobe which is new from the prior study and therefore favors round atelectasis or a pneumonia. This me asures 3.2 cm. Calcified granulomas within the right upper lobe. Patchy densities within the right deedee ng base posteriorly also favor atelectasis. No evidence for pulmonary edema. IMPRESSION: 1. Multiple subacute to chronic mild endplate compression fractures within the thoracic spine as desc ribed above. No associated retropulsion. 2. Healing nondisplaced sternal fractures are also noted. 3. Bibasilar densities are nonspecific but favor atelectasis. A pneumonia could also have a similar a ppearance. 4. Trace right pleural effusion. ACT 112: Negative or not required by law. Electronically signed by: Barak Miller M.D. 01/31/2022 7:34 AM
[2022-01-31] MEDS: PANTOprazole 40 MG TAB PO SCH (08:21)
--- NOTE | 2022-01-31 08:23 | XRay Report ---
XR hip RT 2V w pelvis CLINICAL HISTORY: fall COMPARISON STUDY: Abdomen and pelvis CT 01/30/2022. FINDINGS: No fracture or dislocation within the pelvis or hips. The sacrum appears intact. Mild osteo arthritis within the bilateral hips. Degenerative changes within the lumbar spine. IMPRESSION: No fracture or dislocation within the pelvis or hips. ACT 112: Negative or not required by law. Electronically signed by: Barak Miller M.D. 01/31/2022 8:21 AM
--- NOTE | 2022-01-31 08:29 | XRay Report ---
XR chest 1V portable HISTORY: weakness COMPARISON: Chest 12/16/2021. FINDINGS: No pneumothorax. No pleural effusions. The heart remains mildly enlarged. Left basilar line ar densities favor subsegmental atelectasis. Otherwise, the lungs are clear. IMPRESSION: Stable cardiomegaly. Otherwise, no acute process within the chest. ACT 112: Negative or not required by law. Electronically signed by: Barak Miller M.D. 01/31/2022 8:28 AM
[2022-01-31] MEDS ORDERED: FLUTICASONE HFA 220 MCG INHALER INH SCH (09:00)
[2022-01-31] MEDS: MEGESTROL ACETATE SUSP 400 MG/10 ML UDC PO SCH (09:01)
[2022-01-31] MEDS: ESCITALOPRAM OXALATE 20 MG TAB PO SCH (09:01)
[2022-01-31] MEDS: LINACLOTIDE 145 MCG CAPSULE PO SCH (09:01)
[2022-01-31] MEDS: MULTIVITAMIN TAB PO SCH (09:02)
[2022-01-31] MEDS: QUEtiapine FUMARATE 50 MG TABCR PO SCH ×2 (09:02→20:45)
[2022-01-31] MEDS: DOCUSATE SODIUM/SENNA 50/8.6MG TAB PO PRN (09:02)
[2022-01-31] MEDS: TOPIRAMATE 50 MG TAB PO SCH ×2 (09:03→20:44)
[2022-01-31] MEDS: GABAPENTIN 100 MG CAP PO SCH ×2 (09:03→20:45)
[2022-01-31] MEDS: CETIRIZINE HCL 10 MG TABLET PO SCH (09:03)
[2022-01-31] MEDS: ADVANCED PROBIOTIC 1250 MG CAPSULE PO SCH (09:03)
[2022-01-31] MEDS: FLUTICASONE FUROATE 200MCG 14 PUFFS/INHALER INH SCH (09:04)
[2022-01-31] MEDS: ENOXAPARIN INJ 30 MG/0.3 ML SYR SQ SCH (09:43)
[2022-01-31] MEDS: CYANOCOBALAMIN (B-12) 500 MCG TABLET PO SCH (11:00)
--- NOTE | 2022-01-31 11:29 | Consultation ---
Date of Consultation January 31, 2022 Assessment & Plan (1) Compression fracture: Patient has an acute T12 compression fracture status post fall. Films have been reviewed by Dr. Bravo. Unfortunately due to her respiratory failure she is a poor candidate for bracing at this point in time. She is also very poor surgical candidate. Treatment is therefore conservative. Ambulate ad mervin. Recommend lifting no greater than 5 pounds. We will follow her up in the office in about 2 weeks. She may be a candidate for rehab upon discharge. She is orthopedically stable for discharge. History of Present Illness Reason for Consultation: Thoracic compression fracture Attending Physician: Jose Champagne MD History of Present Illness This is an 89-year-old female who is somewhat of a difficult historian therefore most of history was obtained from her chart who presented to the emergency room with confusion, back pain, fall and respiratory failure.She also presents with chronic UTI. She states she has pain in the thoracic region. I believe she is a resident at a personal [facility]. She reports she ambulates independently. It looks like she had a fall a few days ago per her chart. Allergies Allergy/AdvReac Type Severity Reaction Status Date / Time amitriptyline Allergy Unknown Unverified 12/16/21 19:15 celecoxib [From Celebrex] Allergy Unknown Unverified 12/16/21 19:15 cyclobenzaprine [From Amrix] Allergy Unknown Unverified 12/16/21 19:15 divalproex sodium Allergy Unknown Unverified 12/16/21 19:15 [From Depakote] iodine Allergy Unknown Unverified 12/16/21 19:15 scopolamine Allergy Unknown Unverified 12/16/21 19:15 tegaserod [From Zelnorm] Allergy Unknown Unverified 12/16/21 19:15 zolpidem Allergy Unknown Unverified 12/16/21 19:15 Home Medications Medication Instructions Recorded Confirmed Type acetaminophen 325 mg tablet 650 mg PO Q4 PRN Fever Or Pain 10/18/21 12/16/21 History (Tylenol) ascorbic acid (vitamin C) 500 mg 500 mg PO DAILY 10/18/21 12/16/21 History tablet (Vitamin C) fgtuunq-doeuhkqzbhlho-soryitaw 250 1 tab PO Q6H PRN Pain 10/18/21 12/16/21 History mg-250 mg-65 mg tablet (Excedrin Extra Strength) betamethasone valerate 0.1 % 1 applic topical BID PRN dermatitis 10/18/21 12/16/21 History topical ointment ciprofloxacin HCl 250 mg tablet 250 mg PO DAILY 10/18/21 12/16/21 History (Cipro) escitalopram oxalate 20 mg tablet 20 mg PO QAM depression 10/18/21 12/16/21 History esomeprazole magnesium 40 mg 40 mg PO DAILYBB GERD 10/18/21 12/16/21 History capsule,delayed release fluticasone propionate 220 2 inh inhalation BID 10/18/21 12/16/21 History mcg/actuation HFA aerosol inhaler (Flovent HFA) fremanezumab-vfrm 225 mg/1.5 mL 225 mg subcut MONTHLY 10/18/21 12/16/21 History subcutaneous syringe (Ajovy Syringe) gabapentin 100 mg capsule 200 mg PO BID 10/18/21 12/16/21 History hydroxyzine HCl 10 mg tablet 10 mg PO QAM PRN Itching 10/18/21 12/16/21 History hydroxyzine HCl 25 mg tablet 25 mg PO HS PRN Itching 10/18/21 12/16/21 History levocetirizine 5 mg tablet 5 mg PO BID 10/18/21 12/16/21 History levothyroxine 50 mcg tablet 50 mcg PO DAILYBB 10/18/21 12/16/21 History lifitegrast 5 % eye drops in a 1 drp OPB BID 10/18/21 12/16/21 History dropperette (Xiidra) linaclotide 145 mcg capsule 145 mcg PO DAILY 10/18/21 12/16/21 History (Linzess) liothyronine 5 mcg tablet 5 mcg PO QAM 10/18/21 12/16/21 History mirtazapine 15 mg tablet (Remeron) 7.5 mg PO HS 10/18/21 12/16/21 History multivitamin 1 tab PO DAILY 10/18/21 12/16/21 History ondansetron HCl 4 mg tablet 4 mg PO Q8 PRN Nausea And Vomiting 10/18/21 12/16/21 History quetiapine 50 mg tablet,extended 100 mg PO BID 10/18/21 12/16/21 History release 24 hr (Seroquel XR) rosuvastatin 5 mg tablet (Crestor) 5 mg PO HS 10/18/21 12/16/21 History sennosides 8.6 mg-docusate sodium 2 tab-cap PO HS PRN Constipation 10/18/21 12/16/21 History 50 mg capsule (Senna Plus) tamsulosin 0.4 mg capsule (Flomax) 0.8 mg PO HS 10/18/21 12/16/21 History topiramate 50 mg tablet (Topamax) 50 mg PO BID 10/18/21 12/16/21 History Isatu-Bid 1 cap PO BID 12/16/21 12/16/21 History dextran 70-hypromellose eye drops 1 drp OPB QID PRN Dry Eye(S) 12/16/21 12/16/21 History in a dropperette (Artificial Tears (PF) drops in a dropperette) dimethicone 1.2 %-colloidal 1 ea topical BID 12/16/21 12/16/21 History oatmeal lotion (Aveeno Daily Moisturizing) hydrocortisone 1 % topical cream 1 applic topical TID PRN itchiness 12/16/21 12/16/21 History ipratropium 20 mcg-albuterol 100 1 puff inhalation .Q 6 HRS WHILE 12/16/21 12/16/21 History mcg/actuation mist for inhalation AWAKE (Combivent Respimat) ketorolac 10 mg tablet 10 mg PO Q6H PRN Migraine Headache 12/16/21 12/16/21 History megestrol 400 mg/10 mL (40 mg/mL) 400 mg PO DAILY 12/16/21 12/16/21 History oral suspension tramadol 50 mg tablet 50 mg PO BID 12/16/21 12/16/21 History triamcinolone acetonide 0.1 % 1 applic topical BID PRN bursitis 12/16/21 12/16/21 History topical ointment vit C 250 mg-vit E 90 mg-zinc 40 1 tab PO DAILY 12/16/21 12/16/21 History mg-copper 1 zi-iulhiq-osklab capsule (PreserVision AREDS-2) Patient History Medical History Anxiety Depression Seizures Social History Smoking Status: Never smoker Preferred Language: Belarusian Feels Safe at Home: Yes Review of Systems Review of Systems: All systems reviewed & are unremarkable except as noted in HPI & below Physical Exam Physical Exam: She is seen in the emergency room She is confused but pleasant No acute distress Tender to position of the midline lower thoracic region Negative logrolling bilaterally Negative tension signs bilaterally Strength is 5 5 bilateral EHL, dorsiflexion, plantarflexion, quadriceps, hamstrings Constitutional: + thin Eyes: normal visual maldonado by confrontation ENMT: Ears: + hearing impairment Neck: normal visual inspection Respiratory: no distress, but using nasal canula Cardiovascular: Extremities: normal capillary refill Gastrointestinal (Abdomen): Inspection/Auscultation: abdomen normal to inspection Musculoskeletal: Spine: + pain with thoraco-lumbar ROM and + thoracic spinal tenderness Extremities: extremities normal to inspection and strength 5/5 throughout Skin: no rashes, warm and dry Neurologic: moves all extremities Psychiatric: Orientation: alert Eye Contact: + fair eye contact Results & Data ([facility]) Vital Signs (Past 12 Hours) Vital Signs Temp Pulse Resp BP Pulse Ox O2 Del Method O2 Flow Rate 01/31/22 10:00 90 18 131/76 91 Nasal Cannula 4 01/31/22 07:04 37.1 C 90 20 117/63 90 Nasal Cannula 5 01/31/22 06:23 92 H 20 126/80 91 Nasal Cannula 6 01/31/22 06:14 Nasal Cannula 5 01/31/22 06:08 85 16 91 Nasal Cannula 6 01/31/22 03:07 85 20 158/74 H 95 Nebulizer 01/31/22 01:17 108 H 18 126/66 93 Nasal Cannula 4 01/30/22 23:42 85 18 109/78 92 Nasal Cannula 4 Diagnostic Findings [facility], [place] [phone] CT Scan Report Patient:MEG LIMON Admit Date:01/31/22 MR#:[id number] Address1:[address] [place] [address] Acct ID:[id number] Address2:[address] Date:1930 [facility] Zip:[place] [address] Age:89 Location:[facility] Sex:F Room/Bed:[facility] 1-6 Att Phy:Jose Champagne MD Diagnosis:RESP FAILURE Celia Phy:[facility] Service Date:01/30/22 [facility] Phy: Interpreting Phy:Marcus Muro MDAdmit Phy:Marcos Birmingham MD Ordering Phy:Benigno Veliz M.D. cc: ~ CT OF THE ABDOMEN AND PELVIS WITHOUT CONTRAST CLINICAL HISTORY: fall, back pain COMPARISON STUDY: CT of the abdomen and pelvis October 18, 2021. Pelvis and right hip radiographs performed earlier today. TECHNIQUE: Axial images of the abdomen and pelvis were obtained without IV contrast. Images were reviewed in the axial, sagittal, and coronal planes. Automated exposure control was utilized for the study. A dose lowering technique was utilized adhering to the principles of ALARA. FINDINGS: A trace right pleural effusion is noted. Subpleural opacities within the lower lungs represent atelectasis. There are multiple old bilateral lower rib fractures. A T12 vertebral body fracture with mild loss of height and retropulsion is new since CT of October 18, 2021. This extends through the posterior cortex. No involvement of the posterior elements is identified. This fracture is likely acute. No additional acute fractures are identified on this exam. There is no pelvic or hip fracture. Evaluation of the solid abdominal viscera is suboptimal on this unenhanced exam. However, there is no evidence for traumatic injury to the liver, spleen, adrenal glands, kidneys or pancreas. A hiatal hernia is again noted. No evidence for a bowel obstruction. Diverticulosis without evidence for acute diverticulitis. There is no free fluid. No lymphadenopathy is present. No fluid collection is identified. IMPRESSION: 1. T12 vertebral body fracture with mild loss of height and retropulsion which is new since CT of October 18, 2021. This is likely acute. No additional acute fractures. 2. No traumatic findings within the abdomen or pelvis on unenhanced exam. 3. No bowel obstruction. ACT 112: Negative or not required by law. Electronically signed by: Marcus Muro M.D. 01/31/2022 6:53 AM Dictated:01/31/2244 Transcribed: 01/31/2244
--- NOTE | 2022-01-31 15:33 | Hospitalist Progress Note ---
Date of Service January 31, 2022 Assessment & Plan (1) Acute hypoxemic respiratory failure: Plan: Acute hypoxic respiratory failure Multifactorial: Secondary to COPD exacerbation, possible aspiration pneumonia, Atelectasis --CT Chest:Bibasilar densities are nonspecific but favor atelectasis. A pneumonia could also have a similar appearance. Trace right pleural effusion. --Blood cultures pending On ertapenem, prednisone, Nebs Continue supplemental oxygen to keep saturations 88 to 92% Aspiration precautions Speech therapy consulted Check procalcitonin Complicated UTI H/O Recurrent UTI H/O ESBL H/O overactive bladder On chronic ciprofloxacin suppression Therapy Blood, urine culture pending Continue ertapenem Appreciate urology input Continue tamsulosin Continue bladder scan to assess for retention Acute T12 compression fracture Nondisplaced sternal fractures Secondary to multiple falls H/O ambulatory dysfunction --CT showed T12 vertebral body fracture with mild loss of height and retropulsion, Multiple subacute to chronic mild endplate compression fractures within the thoracic spine, healing nondisplaced sternal fractures --Hip X ray:No fracture or dislocation within the pelvis or hips. Appreciate orthopedics input Fall precautions Very poor surgical candidate Also considered to be a poor candidate for bracing secondary to respiratory failure Ambulate ad mervin. Recommended lifting no greater than 5 pounds Needs follow-up with orthopedics upon discharge PT OT eval Mild rhabdomyolysis Secondary to fall Held statin Gentle IV fluids Monitor CK H/O TIA Hyperlipidemia On Statin--held as above GERD Continue PPI Hypothyroidism TSH elevated, low Free T4 Increase levothyroxine to 75 mcg daily Also on Cytomel Will need repeat thyroid function test as outpatient Anemia of chronic disease FOBT done in ER was negative Monitor CBC Vitamin B12 deficiency Started on iron B12 supplement Mood disorder Mild dementia as per family Continue home medications DVT Px Lovenox SQ Code Status DNI/DNR Admission and Anticipated Discharge Date Admission Date: January 31, 2022 Subjective Patient is seen and examined at bedside Poor historian Reports having headache, intermittent dizziness Admits to having falls Reports minimal back pain Denies any chest pain, dyspnea No other complaints Review of Systems Review of Systems: All systems reviewed & are unremarkable except as noted in Subjective Physical Exam Physical Exam: Physical Exam: Vitals signs as noted above General Appearance:Thin, no apparent distress Head: normocephalic, Atraumatic Eyes: normal inspection, EOMI Neck: supple, Trachea midline Respiratory/Chest: Decreased breath sounds, CTA, No accessory muscle use Cardiovascular: S1, S2, No murmur Abdomen/GI:Soft, Non tender, Bowel sounds present Extremities/Musculoskeletal:normal inspection, no edema Neurologic/Psych:AAOX2, grossly no focal neurological deficits, Hearing impairment Skin: normal color, warm Results & Data Results & Data ([facility]) Vital Signs (Past 12 Hours) Vital Signs Temp Pulse Pulse Resp BP Pulse Ox O2 Del Method 01/31/22 13:21 71 70 20 133/68 93 Nasal Cannula 01/31/22 10:00 90 18 131/76 91 Nasal Cannula 01/31/22 07:04 37.1 C 90 20 117/63 90 Nasal Cannula 01/31/22 06:23 92 H 20 126/80 91 Nasal Cannula 01/31/22 06:14 Nasal Cannula 01/31/22 06:08 85 16 91 Nasal Cannula O2 Flow Rate 01/31/22 13:21 5 01/31/22 10:00 4 01/31/22 07:04 5 01/31/22 06:23 6 01/31/22 06:14 5 01/31/22 06:08 6 Laboratory Results Short CBC 01/30/22 01/31/22 Range/Units 22:21 05:53 WBC 6.38 6.62 (4.8-10.8) K/ul Hgb 11.4 L 11.9 L (12.0-16.0) g/dl Hct 34.1 35.5 (34.1-44.9) % Plt Count 207 211 (130-400) K/uL BMP 01/30/22 01/31/22 22:21 05:53 Sodium 138 139 Potassium 4.1 3.5 Chloride 107 107 Carbon Dioxide 21 23 BUN 22 18 Creatinine 1.07 0.95 Glucose 86 113 H Calcium 9.4 8.8 Cardiac Enzymes 01/30/22 01/31/22 Range/Units 22:21 05:53 Total Creatine Kinase 476 H 434 H (26-192) U/L Liver Function 01/30/22 Range/Units 22:21 Total Bilirubin 0.7 (0.2-1.0) mg/dl AST 31 (13-39) U/L ALT 20 (7-52) U/L Alkaline Phosphatase 74 (34-104) U/L Albumin 4.6 (3.4-5.0) gm/dl Urine 01/30/22 Range/Units 23:39 Urine Color Yellow Urine Appearance Cloudy A (Clear) Urine pH 7.5 (4.5-7.5) Ur Specific [place] 1.019 (1.000-1.030) Urine Protein Negative (Negative) Urine Glucose (UA) Negative (Negative)
--- NOTE | 2022-01-31 19:09 | Electrocardiogram Report ---
Test Reason : Blood Pressure : / mmHG Vent. Rate : 075 BPM Atrial Rate : 075 BPM P-R Int : 172 ms QRS Dur : 130 ms QT Int : 434 ms P-R-T Axes : 020 -42 000 degrees QTc Int : 484 ms Normal sinus rhythm Left axis deviation Right bundle branch block Abnormal ECG When compared with ECG of 16-DEC-2021 18:08, Premature atrial complexes are no longer Present Confirmed by Zach River ([id number]) on 01/31/2022 7:09:12 PM Referred By: REFERRED SELF Confirmed By:Luis River
[2022-01-31] MEDS: TAMSULOSIN HCL 0.4 MG CAP PO SCH (20:45)
[2022-01-31] MEDS: MIRTAZAPINE TAB 15 MG TAB PO SCH (20:46)
--- NOTE | 2022-01-31 22:08 | Communication Note ---
Date of Service: January 31, 2022 Patient refusing scheduled neb treatments for COPD as per RT. Utilize patient home Combivent regimen interim.
[2022-02-01] MEDS ORDERED: ERTAPENEM SODIUM 500 MG in SYRINGE 0 ML IV SCH (01:00)
[2022-02-01] MEDS: ERTAPENEM SODIUM 1,000 MG in SYRINGE 0 ML IV SCH (01:06)
[2022-02-01] MEDS ORDERED: ERTAPENEM SODIUM 10 ML IV SCH (02:00)
[2022-02-01] MEDS: LEVOTHYROXINE SODIUM 75 MCG TABLET PO SCH (05:30)
[2022-02-01] MEDS: LIOTHYRONINE SODIUM 5 MCG TAB PO SCH (05:30)
[2022-02-01 06:58] LABS: Hematocrit (blood only) 33.4 % (34.1-44.9); Hemoglobin 11.1 g/dl (12.0-16.0); Mean Corpuscular Hemoglobin 29.3 pg (25.0-34.0); Mean Corpuscular Hgb Conc 33.2 g/dL (32.0-36.0); Mean Corpuscular Volume 88.1 fL (80.0-100.0); Mean Platelet Volume 10.7 fL (9.4-12.3); Platelet Count 194 K/uL (130-400); RDW Coefficient of Variation 16.7 % (11.5-14.5); RDW Standard Deviation 54.1 fL (36.4-46.3); Red Blood Count 3.79 M/uL (3.93-5.22); White Blood Count 6.09 K/ul (4.8-10.8)
[2022-02-01] MEDS: Albuterol HFA 8 GM Inhaler (Combivent Respimat P&T Subs) INH SCH ×3 (07:21→17:57)
[2022-02-01] MEDS: Ipratropium HFA Inhaler (Combivent Respimat P&T Subs) INH SCH ×3 (07:22→17:57)
[2022-02-01 07:36] LABS: BUN Creatinine Ratio 15.2 (10-20); Calcium 8.4 mg/dl (8.5-10.1); Creatinine Clr Calc Pharmacy 43.4 ml/min; Est GFR (African American) 76.9 ml/min; Est GFR (Non-African American) 66.4 ml/min; Magnesium 2.1 mg/dl (1.7-2.4); Potassium 3.4 mmol/L (3.5-5.1)
[2022-02-01] MEDS ORDERED: IPRATROPIUM BROMIDE/ALBUTEROL respimat INH INH SCH (08:00)
[2022-02-01] MEDS: GABAPENTIN 100 MG CAP PO SCH ×2 (09:01→20:40)
[2022-02-01] MEDS: FLUTICASONE FUROATE 200MCG 14 PUFFS/INHALER INH SCH (09:01)
[2022-02-01] MEDS: ENOXAPARIN INJ 30 MG/0.3 ML SYR SQ SCH (09:01)
[2022-02-01] MEDS: QUEtiapine FUMARATE 50 MG TABCR PO SCH ×2 (09:03→20:39)
[2022-02-01] MEDS: CYANOCOBALAMIN (B-12) 500 MCG TABLET PO SCH (09:03)
[2022-02-01] MEDS: ESCITALOPRAM OXALATE 20 MG TAB PO SCH (09:03)
[2022-02-01] MEDS: CETIRIZINE HCL 10 MG TABLET PO SCH (09:03)
[2022-02-01] MEDS: LINACLOTIDE 145 MCG CAPSULE PO SCH (09:04)
[2022-02-01] MEDS: ADVANCED PROBIOTIC 1250 MG CAPSULE PO SCH (09:04)
[2022-02-01] MEDS: MEGESTROL ACETATE SUSP 400 MG/10 ML UDC PO SCH (09:05)
[2022-02-01] MEDS: MULTIVITAMIN TAB PO SCH (09:05)
[2022-02-01] MEDS: TOPIRAMATE 50 MG TAB PO SCH ×2 (09:06→20:40)
[2022-02-01] MEDS: PANTOprazole 40 MG TAB PO SCH (09:06)
[2022-02-01] MEDS: LIDOCAINE 5% 1 PATCH TD SCH (09:12)
[2022-02-01] MEDS ORDERED: POTASSIUM CHLORIDE 20 MEQ/15 ML UDC PO ONE (10:30)
[2022-02-01] MEDS: predniSONE 20 MG TAB PO SCH (11:57)
--- NOTE | 2022-02-01 13:24 | Urology Progress Note ---
Date of Service February 01, 2022 Assessment & Plan (1) Acute UTI: Plan 89yo F admitted with UTI, acute hypoxemic respiratory failure, compression fracture. - Afebrile and hemodynamically stable. - Labs reviewed - WBC 6.09, Creatinine 0.79. - Urine culture prelim gram negative bacilli, blood cultures prelim no growth. - External urinary catheter in place. Continue to monitor, bladder scan prn. - Continue supportive care and antibiotic therapy, follow cultures. - Pt previously followed with a urologist in [place], [place] for recurrent UTI and would like to establish care with our office. Will arrange outpatient follow- up. - Urology will sign-off. Please contact us with any further questions, concerns, or changes in patient status. Admission and Anticipated Discharge Date Admission Date: January 31, 2022 Subjective Pt examined at bedside. Awake, resting in bed on arrival. No acute distress. Son at bedside. No fevers. External urinary catheter in place, draining clear yellow urine. Review of Systems Constitutional: as per Subjective / HPI Genitourinary: as per Subjective / HPI Physical Exam Constitutional: no acute distress Respiratory: no respiratory distress and no labored breathing Neurologic: awake Psychiatric: Orientation: alert Genitourinary: Urine is clear yellow Results & Data ([facility]) Vital Signs (Past 12 Hours) Vital Signs Temp Pulse Pulse Pulse Resp BP Pulse Ox 02/01/22 10:49 36.7 C 74 20 138/64 93 02/01/22 07:57 36.5 C 78 20 146/76 H 95 02/01/22 07:22 80 18 93 02/01/22 07:00 70 02/01/22 04:27 36.6 C 89 16 158/76 H 93 02/01/22 02:44 O2 Del Method O2 Flow Rate 02/01/22 10:49 Nasal Cannula 5 02/01/22 07:57 Nasal Cannula 5 02/01/22 07:22 Nasal Cannula 5 02/01/22 07:00 02/01/22 04:27 Nasal Cannula 7 02/01/22 02:44 Nasal Cannula 6 PG Care Time/CCT Total # of Minutes Spent Total Time Spent with Patient: Total time spent is greater than 50% in coordination of care (as documented) at patient's floor/unit and/or counseling patient: Coding Level of Care Code 94979 Subseq Hosp Care Lvl 2 Diagnoses Acute UTI N39.0
--- NOTE | 2022-02-01 18:19 | Hospitalist Progress Note ---
Date of Service February 01, 2022 Assessment & Plan (1) Acute hypoxemic respiratory failure: Plan: Acute on chronic hypoxic respiratory failure Chronic oxygen dependency--2 L at baseline Multifactorial: Secondary to COPD exacerbation, possible aspiration pneumonia, Atelectasis --CT Chest:Bibasilar densities are nonspecific but favor atelectasis. A pneumonia could also have a similar appearance. Trace right pleural effusion. --Blood cultures: Negative to date --Normal Procalcitonin On ertapenem, prednisone, Nebs Continue supplemental oxygen to keep saturations 88 to 92% Aspiration precautions Speech therapy consulted Complicated UTI Acute metabolic encephalopathy-- delirium contributing as well H/O Recurrent UTI H/O ESBL H/O overactive bladder On chronic ciprofloxacin suppression Therapy urine culture growing gram-negative bacilli Continue ertapenem Appreciate urology input Continue tamsulosin Continue bladder scan to assess for retention Delirium precautions Needs follow-up with urology upon discharge Acute T12 compression fracture Nondisplaced sternal fractures Secondary to multiple falls H/O ambulatory dysfunction --CT [id number] vertebral body fracture with mild loss of height and retropulsion, Multiple subacute to chronic mild endplate compression fractures within the thoracic spine, healing nondisplaced sternal fractures --Hip X ray:No fracture or dislocation within the pelvis or hips. Appreciate orthopedics input Fall precautions Very poor surgical candidate Also considered to be a poor candidate for bracing secondary to respiratory failure Ambulate ad mervin. Recommended lifting no greater than 5 pounds Needs follow-up with orthopedics upon discharge PT OT eval Mild rhabdomyolysis Secondary to fall Held statin Gentle IV fluids Monitor CK H/O TIA Hyperlipidemia On Statin--held as above GERD Continue PPI Hypothyroidism TSH elevated, low Free T4 Increase levothyroxine to 75 mcg daily Also on Cytomel Will need repeat thyroid function test as outpatient Anemia of chronic disease FOBT done in ER was negative Monitor CBC Vitamin B12 deficiency Continue Iron B12 supplement Mood disorder Mild dementia as per family Continue home medications DVT Px Lovenox SQ Code Status DNI/DNR Admission and Anticipated Discharge Date Admission Date: January 31, 2022 Subjective Patient is seen and examined at bedside Poor historian Offers no complaints today Confused intermittently Denies any chest pain, dyspnea, dizziness, nausea, abdominal pain Review of Systems Review of Systems: Other Physical Exam Physical Exam: Physical Exam: Vitals signs as noted above General Appearance:Thin, no apparent distress Head: normocephalic, Atraumatic Eyes: normal inspection, EOMI Neck: supple, Trachea midline Respiratory/Chest: Decreased coarse breath sounds, No accessory muscle use Cardiovascular: S1, S2, No murmur Abdomen/GI:Soft, Non tender, Bowel sounds present Extremities/Musculoskeletal:normal inspection, no edema Neurologic/Psych:AAOX2, grossly no focal neurological deficits, Hearing impairment Skin: normal color, warm Results & Data Results & Data ([facility]) Vital Signs (Past 12 Hours) Vital Signs Temp Pulse Pulse Pulse Resp BP Pulse Ox 02/01/22 17:57 74 16 94 02/01/22 15:43 36.6 C 82 18 100/57 L 92 02/01/22 07:50 02/01/22 13:59 83 02/01/22 13:30 92 02/01/22 10:05 93 02/01/22 13:31 62 18 92 02/01/22 10:49 36.7 C 74 20 138/64 93 02/01/22 07:57 36.5 C 78 20 146/76 H 95 02/01/22 07:22 80 18 93 02/01/22 07:00 70 O2 Del Method O2 Flow Rate 02/01/22 17:57 Nasal Cannula 4 02/01/22 15:43 Nasal Cannula 4 02/01/22 07:50 Nasal Cannula 6 02/01/22 13:59 02/01/22 13:30 Nasal Cannula 5 02/01/22 10:05 Nasal Cannula 6 02/01/22 13:31 Nasal Cannula 4 02/01/22 10:49 Nasal Cannula 5 02/01/22 07:57 Nasal Cannula 5 02/01/22 07:22 Nasal Cannula 5 02/01/22 07:00 Laboratory Results Short CBC 02/01/22 Range/Units 05:52 WBC 6.09 (4.8-10.8) K/ul Hgb 11.1 L (12.0-16.0) g/dl Hct 33.4 L (34.1-44.9) % Plt Count 194 (130-400) K/uL BMP 02/01/22 05:52 Sodium 138 Potassium 3.4 L Chloride 109 H Carbon Dioxide 22 BUN 12 Creatinine 0.79 Glucose 84 Calcium 8.4 L
[2022-02-01] MEDS: MIRTAZAPINE TAB 15 MG TAB PO SCH (20:39)
[2022-02-01] MEDS: TAMSULOSIN HCL 0.4 MG CAP PO SCH (20:40)
[2022-02-02] MEDS: ERTAPENEM SODIUM 1,000 MG in SYRINGE 0 ML IV SCH (01:07)
[2022-02-02] MEDS: LIOTHYRONINE SODIUM 5 MCG TAB PO SCH (05:40)
[2022-02-02] MEDS: LEVOTHYROXINE SODIUM 75 MCG TABLET PO SCH (05:40)
[2022-02-02] MEDS: Albuterol HFA 8 GM Inhaler (Combivent Respimat P&T Subs) INH SCH ×3 (07:42→19:09)
[2022-02-02] MEDS: Ipratropium HFA Inhaler (Combivent Respimat P&T Subs) INH SCH ×3 (07:42→19:08)
[2022-02-02] MEDS: FLUTICASONE FUROATE 200MCG 14 PUFFS/INHALER INH SCH (08:59)
[2022-02-02] MEDS: LIDOCAINE 5% 1 PATCH TD SCH (08:59)
[2022-02-02] MEDS: TOPIRAMATE 50 MG TAB PO SCH ×2 (08:59→20:54)
[2022-02-02] MEDS: ENOXAPARIN INJ 30 MG/0.3 ML SYR SQ SCH (08:59)
[2022-02-02] MEDS: GABAPENTIN 100 MG CAP PO SCH ×2 (08:59→20:53)
[2022-02-02] MEDS: MULTIVITAMIN TAB PO SCH (08:59)
[2022-02-02] MEDS: QUEtiapine FUMARATE 50 MG TABCR PO SCH ×2 (08:59→20:53)
[2022-02-02] MEDS: CYANOCOBALAMIN (B-12) 500 MCG TABLET PO SCH (08:59)
[2022-02-02] MEDS: ESCITALOPRAM OXALATE 20 MG TAB PO SCH (08:59)
[2022-02-02] MEDS: CETIRIZINE HCL 10 MG TABLET PO SCH (09:00)
[2022-02-02] MEDS: MEGESTROL ACETATE SUSP 400 MG/10 ML UDC PO SCH (09:00)
[2022-02-02] MEDS: DOCUSATE SODIUM/SENNA 50/8.6MG TAB PO PRN (09:00)
[2022-02-02] MEDS: ADVANCED PROBIOTIC 1250 MG CAPSULE PO SCH (09:00)
[2022-02-02] MEDS: predniSONE 20 MG TAB PO SCH (09:00)
[2022-02-02] MEDS: LINACLOTIDE 145 MCG CAPSULE PO SCH (09:00)
[2022-02-02] MEDS: PANTOprazole 40 MG TAB PO SCH (09:00)
[2022-02-02 09:10] LABS: BUN Creatinine Ratio 16.9 (10-20); Calcium 8.3 mg/dl (8.5-10.1); Creatinine Clr Calc Pharmacy 41.3 ml/min; Est GFR (African American) 72.5 ml/min; Est GFR (Non-African American) 62.5 ml/min; Potassium 3.4 mmol/L (3.5-5.1)
[2022-02-02 09:50] LABS: Thyroid Stimulating Hormone 5.923 uIu/ml (0.300-4.500)
[2022-02-02 12:02] LABS: T4 Free Thyroxine 0.48 ng/dl (0.61-1.60)
[2022-02-02] MEDS ORDERED: POTASSIUM CHLORIDE CRTAB 20 MEQ TABCR PO ONE (12:35)
--- NOTE | 2022-02-02 16:17 | Hospitalist Progress Note ---
Date of Service February 02, 2022 Assessment & Plan (1) Acute hypoxemic respiratory failure: Plan: Acute on chronic hypoxic respiratory failure Chronic oxygen dependency--2 L at baseline Multifactorial: Secondary to COPD exacerbation, possible aspiration pneumonia, Atelectasis --CT Chest:Bibasilar densities are nonspecific but favor atelectasis. A pneumonia could also have a similar appearance. Trace right pleural effusion. --Blood cultures: Negative to date --Normal Procalcitonin On ertapenem, prednisone, Nebs Continue supplemental oxygen to keep saturations 88 to 92% Aspiration precautions Speech therapy consulted Continue current management Complicated UTI Acute metabolic encephalopathy-- delirium contributing as well H/O Recurrent ESBL UTI H/O overactive bladder On chronic ciprofloxacin suppression Therapy urine culture growing ESBL E.Coli Continue ertapenem Appreciate urology input Continue tamsulosin Continue bladder scan to assess for retention Delirium precautions Needs follow-up with urology upon discharge Consulted ID Acute T12 compression fracture Nondisplaced sternal fractures Secondary to multiple falls H/O ambulatory dysfunction --CT [id number] vertebral body fracture with mild loss of height and retropulsion, Multiple subacute to chronic mild endplate compression fractures within the thoracic spine, healing nondisplaced sternal fractures --Hip X ray:No fracture or dislocation within the pelvis or hips. Appreciate orthopedics input Fall precautions Very poor surgical candidate Also considered to be a poor candidate for bracing secondary to respiratory failure Ambulate ad mervin. Recommended lifting no greater than 5 pounds Needs follow-up with orthopedics upon discharge PT OT eval Mild rhabdomyolysis Secondary to fall Held statin Received IV fluids Monitor CK H/O TIA Hyperlipidemia On Statin--held as above GERD Continue PPI Hypothyroidism TSH elevated, low Free T4 Increase levothyroxine to 75 mcg daily Also on Cytomel Will need repeat thyroid function test as outpatient Anemia of chronic disease FOBT done in ER was negative Monitor CBC Vitamin B12 deficiency Continue Iron B12 supplement Mood disorder Mild dementia as per family Continue home medications DVT Px Lovenox SQ Code Status DNI/DNR Admission and Anticipated Discharge Date Admission Date: January 31, 2022 Subjective Patient is seen and examined at bedside Poor historian States having minimal dysuria Pleasantly confused Denies any chest pain, dyspnea, dizziness, nausea, abdominal pain Urine culture growing ESBL E. coli Review of Systems Review of Systems: Other Physical Exam Physical Exam: Physical Exam: Vitals signs as noted above General Appearance:Thin, no apparent distress Head: normocephalic, Atraumatic Eyes: normal inspection, EOMI Neck: supple, Trachea midline Respiratory/Chest: Decreased coarse breath sounds, No accessory muscle use Cardiovascular: S1, S2, No murmur Abdomen/GI:Soft, Non tender, Bowel sounds present Extremities/Musculoskeletal:normal inspection, no edema Neurologic/Psych:AAOX2, grossly no focal neurological deficits, Hearing impairment Skin: normal color, warm Results & Data Results & Data ([facility]) Vital Signs (Past 12 Hours) Vital Signs Temp Pulse Pulse Resp BP BP Pulse Ox 02/02/22 12:50 16 94 02/02/22 11:59 95 02/02/22 11:56 37.1 C 68 20 148/69 H 90 02/02/22 10:10 02/02/22 07:00 62 02/02/22 08:00 36.8 C 71 18 138/69 94 02/02/22 07:43 62 16 96 O2 Del Method O2 Flow Rate 02/02/22 12:50 Nasal Cannula 2 02/02/22 11:59 Nasal Cannula 2 02/02/22 11:56 Room Air 02/02/22 10:10 Nasal Cannula 2 02/02/22 07:00 02/02/22 08:00 Nasal Cannula 2 02/02/22 07:43 Nasal Cannula [address] [facility] 02/02/22 08:12 Sodium 139 Potassium 3.4 L Chloride 110 H Carbon Dioxide 23 BUN 14 Creatinine 0.83 Glucose 94 Calcium 8.3 L
[2022-02-02] MEDS: TAMSULOSIN HCL 0.4 MG CAP PO SCH (20:54)
[2022-02-02] MEDS: MIRTAZAPINE TAB 15 MG TAB PO SCH (20:54)
[2022-02-03] MEDS: ERTAPENEM SODIUM 1,000 MG in SYRINGE 0 ML IV SCH (01:04)
[2022-02-03] MEDS: LEVOTHYROXINE SODIUM 75 MCG TABLET PO SCH (06:10)
[2022-02-03] MEDS: LIOTHYRONINE SODIUM 5 MCG TAB PO SCH (06:10)
[2022-02-03] MEDS: Albuterol HFA 8 GM Inhaler (Combivent Respimat P&T Subs) INH SCH ×3 (07:27→19:22)
[2022-02-03] MEDS: Ipratropium HFA Inhaler (Combivent Respimat P&T Subs) INH SCH ×3 (07:27→19:22)
[2022-02-03 08:13] LABS: Creatinine Clr Calc Pharmacy 40.9 ml/min; Est GFR (African American) 71.4 ml/min; Est GFR (Non-African American) 61.6 ml/min
[2022-02-03] MEDS: CYANOCOBALAMIN (B-12) 500 MCG TABLET PO SCH (09:24)
[2022-02-03] MEDS: ADVANCED PROBIOTIC 1250 MG CAPSULE PO SCH (09:24)
[2022-02-03] MEDS: ESCITALOPRAM OXALATE 20 MG TAB PO SCH (09:24)
[2022-02-03] MEDS: QUEtiapine FUMARATE 50 MG TABCR PO SCH ×2 (09:24→20:17)
[2022-02-03] MEDS: LINACLOTIDE 145 MCG CAPSULE PO SCH (09:24)
[2022-02-03] MEDS: PANTOprazole 40 MG TAB PO SCH (09:24)
[2022-02-03] MEDS: MULTIVITAMIN TAB PO SCH (09:24)
[2022-02-03] MEDS: LIDOCAINE 5% 1 PATCH TD SCH (09:25)
[2022-02-03] MEDS: predniSONE 20 MG TAB PO SCH (09:25)
[2022-02-03] MEDS: TOPIRAMATE 50 MG TAB PO SCH ×2 (09:25→20:18)
[2022-02-03] MEDS: MEGESTROL ACETATE SUSP 400 MG/10 ML UDC PO SCH (09:25)
[2022-02-03] MEDS: FLUTICASONE FUROATE 200MCG 14 PUFFS/INHALER INH SCH (09:25)
[2022-02-03] MEDS: CETIRIZINE HCL 10 MG TABLET PO SCH (09:25)
[2022-02-03] MEDS: GABAPENTIN 100 MG CAP PO SCH ×2 (09:25→20:18)
[2022-02-03] MEDS: ENOXAPARIN INJ 30 MG/0.3 ML SYR SQ SCH (09:26)
--- NOTE | 2022-02-03 14:57 | Hospitalist Progress Note ---
Date of Service February 03, 2022 Assessment & Plan (1) Acute hypoxemic respiratory failure: Plan: Acute on chronic hypoxic respiratory failure Chronic oxygen dependency--2 L at baseline Multifactorial: Secondary to COPD exacerbation, possible aspiration pneumonia, Atelectasis --CT Chest:Bibasilar densities are nonspecific but favor atelectasis. A pneumonia could also have a similar appearance. Trace right pleural effusion. --Blood cultures: Negative to date --Normal Procalcitonin On ertapenem, prednisone, Nebs Continue supplemental oxygen to keep saturations 88 to 92% Aspiration precautions Speech therapy consulted Complicated UTI Acute metabolic encephalopathy-- delirium contributing as well H/O Recurrent ESBL UTI H/O overactive bladder Urinary retention On chronic ciprofloxacin suppression Therapy urine culture growing ESBL E.Coli Continue ertapenem Appreciate urology input Continue tamsulosin Delirium precautions Needs follow-up with urology upon discharge Consulted ID Continue bladder scan every shift If retention persist, will place on [place] catheter Acute T12 compression fracture Nondisplaced sternal fractures Secondary to multiple falls H/O ambulatory dysfunction --CT [id number] vertebral body fracture with mild loss of height and retropulsion, Multiple subacute to chronic mild endplate compression fractures within the thoracic spine, healing nondisplaced sternal fractures --Hip X ray:No fracture or dislocation within the pelvis or hips. Appreciate orthopedics input Fall precautions Very poor surgical candidate Also considered to be a poor candidate for bracing secondary to respiratory failure Ambulate ad mervin. Recommended lifting no greater than 5 pounds Needs follow-up with orthopedics upon discharge PT OT eval Mild rhabdomyolysis Secondary to fall Held statin Received IV fluids Monitor CK H/O TIA Hyperlipidemia On Statin--held as above GERD Continue PPI Hypothyroidism TSH elevated, low Free T4 Increase levothyroxine to 75 mcg daily Also on Cytomel Will need repeat thyroid function test as outpatient Anemia of chronic disease FOBT done in ER was negative Monitor CBC Vitamin B12 deficiency Continue Iron B12 supplement Mood disorder Mild dementia as per family Continue home medications DVT Px Lovenox SQ Code Status DNI/DNR Admission and Anticipated Discharge Date Admission Date: January 31, 2022 Subjective Patient is seen and examined at bedside Poor historian Poor appetite Had urinary retention on bladder scan Dysuria seem to have resolved Reports minimal back pain Denies any chest pain, dyspnea, dizziness, nausea, abdominal pain Review of Systems Review of Systems: All systems reviewed & are unremarkable except as noted in Subjective Physical Exam Physical Exam: Physical Exam: Vitals signs as noted above General Appearance:Thin, no apparent distress Head: normocephalic, Atraumatic Eyes: normal inspection, EOMI Neck: supple, Trachea midline Respiratory/Chest: Decreased coarse breath sounds, No accessory muscle use Cardiovascular: S1, S2, No murmur Abdomen/GI:Soft, Non tender, Bowel sounds present Extremities/Musculoskeletal:normal inspection, no edema Neurologic/Psych:AAOX2, grossly no focal neurological deficits, Hearing impairment Skin: normal color, warm Results & Data Results & Data ([facility]) Vital Signs (Past 12 Hours) Vital Signs Temp Pulse Pulse Resp BP Pulse Ox O2 Del Method 02/03/22 13:00 67 16 89 L Nasal Cannula 02/03/22 12:14 36.7 C 65 16 137/70 95 Nasal Cannula 02/03/22 10:54 Nasal Cannula 02/03/22 07:42 36.6 C 64 16 132/72 94 Nasal Cannula 02/03/22 07:29 67 16 91 Nasal Cannula 02/03/22 07:22 70 02/03/22 03:15 36.8 C 75 18 143/76 H 94 Nasal Cannula O2 Flow Rate 02/03/22 13:00 3 02/03/22 12:14 3 02/03/22 10:54 2 02/03/22 07:42 3 02/03/22 07:29 3 02/03/22 07:22 02/03/22 03:15 2 Laboratory Results [facility] 02/03/22 06:56 Creatinine 0.84
[2022-02-03] MEDS: MIRTAZAPINE TAB 15 MG TAB PO SCH (20:17)
[2022-02-03] MEDS: TAMSULOSIN HCL 0.4 MG CAP PO SCH (20:18)
[2022-02-04] MEDS: ERTAPENEM SODIUM 1,000 MG in SYRINGE 0 ML IV SCH (01:16)
[2022-02-04] MEDS: LEVOTHYROXINE SODIUM 75 MCG TABLET PO SCH (05:54)
[2022-02-04] MEDS: LIOTHYRONINE SODIUM 5 MCG TAB PO SCH (05:54)
[2022-02-04] MEDS: Ipratropium HFA Inhaler (Combivent Respimat P&T Subs) INH SCH ×3 (07:18→20:21)
[2022-02-04] MEDS: Albuterol HFA 8 GM Inhaler (Combivent Respimat P&T Subs) INH SCH ×3 (07:18→20:21)
[2022-02-04] MEDS: MEGESTROL ACETATE SUSP 400 MG/10 ML UDC PO SCH (07:36)
[2022-02-04] MEDS: CYANOCOBALAMIN (B-12) 500 MCG TABLET PO SCH (07:37)
[2022-02-04] MEDS: PANTOprazole 40 MG TAB PO SCH (07:37)
[2022-02-04] MEDS: ESCITALOPRAM OXALATE 20 MG TAB PO SCH (07:37)
[2022-02-04] MEDS: ADVANCED PROBIOTIC 1250 MG CAPSULE PO SCH (07:37)
[2022-02-04] MEDS: MULTIVITAMIN TAB PO SCH (07:37)
[2022-02-04] MEDS: predniSONE 20 MG TAB PO SCH (07:37)
[2022-02-04] MEDS: TOPIRAMATE 50 MG TAB PO SCH ×2 (07:37→22:37)
[2022-02-04] MEDS: QUEtiapine FUMARATE 50 MG TABCR PO SCH ×2 (07:37→22:38)
[2022-02-04] MEDS: LINACLOTIDE 145 MCG CAPSULE PO SCH (07:37)
[2022-02-04] MEDS: CETIRIZINE HCL 10 MG TABLET PO SCH (07:37)
[2022-02-04] MEDS: LIDOCAINE 5% 1 PATCH TD SCH (07:38)
[2022-02-04] MEDS: GABAPENTIN 100 MG CAP PO SCH ×2 (07:38→22:39)
[2022-02-04] MEDS: FLUTICASONE FUROATE 200MCG 14 PUFFS/INHALER INH SCH (07:38)
[2022-02-04] MEDS: ENOXAPARIN INJ 30 MG/0.3 ML SYR SQ SCH (07:38)
[2022-02-04 08:41] LABS: Hematocrit (blood only) 33.2 % (34.1-44.9); Mean Corpuscular Hemoglobin 29.2 pg (25.0-34.0); Mean Corpuscular Hgb Conc 33.1 g/dL (32.0-36.0); Mean Corpuscular Volume 88.1 fL (80.0-100.0); Mean Platelet Volume 10.5 fL (9.4-12.3); Platelet Count 225 K/uL (130-400); RDW Coefficient of Variation 17.2 % (11.5-14.5); RDW Standard Deviation 55.2 fL (36.4-46.3); Red Blood Count 3.77 M/uL (3.93-5.22); White Blood Count 6.65 K/ul (4.8-10.8)
[2022-02-04 09:01] LABS: BUN Creatinine Ratio 18.2 (10-20); Calcium 8.6 mg/dl (8.5-10.1); Est GFR (African American) 67.5 ml/min; Est GFR (Non-African American) 58.3 ml/min; Magnesium 2.2 mg/dl (1.7-2.4); Potassium 3.2 mmol/L (3.5-5.1)
[2022-02-04] MEDS ORDERED: POTASSIUM CHLORIDE CRTAB 20 MEQ TABCR PO ONE ×2 (09:26→14:00)
--- NOTE | 2022-02-04 18:47 | Hospitalist Progress Note ---
Date of Service February 04, 2022 Assessment & Plan (1) Acute hypoxemic respiratory failure: Plan: Acute on chronic hypoxic respiratory failure Chronic oxygen dependency--2 L at baseline Multifactorial: Secondary to COPD exacerbation, possible aspiration pneumonia, Atelectasis --CT Chest:Bibasilar densities are nonspecific but favor atelectasis. A pneumonia could also have a similar appearance. Trace right pleural effusion. --Blood cultures: Negative to date --Normal Procalcitonin On ertapenem, prednisone, Nebs Continue supplemental oxygen to keep saturations 88 to 92% Aspiration precautions Speech therapy consulted Will complete prednisone course tomorrow Complicated UTI Acute metabolic encephalopathy-- delirium contributing as well H/O Recurrent ESBL UTI H/O overactive bladder Urinary retention On chronic ciprofloxacin suppression Therapy urine culture growing ESBL E.Coli Continue ertapenem Appreciate urology input Continue tamsulosin Delirium precautions Needs follow-up with urology upon discharge Appreciate ID Input Continue bladder scan every shift Need to complete 10 to 14 days of ertapenem Given susceptibility pattern, patient would not be benefited from chronic suppressive therapy with ciprofloxacin Acute T12 compression fracture Nondisplaced sternal fractures Secondary to multiple falls H/O ambulatory dysfunction --CT [id number] vertebral body fracture with mild loss of height and retro pulsion, Multiple subacute to chronic mild endplate compression fractures within the thoracic spine, healing nondisplaced sternal fractures --Hip X ray:No fracture or dislocation within the pelvis or hips. Appreciate orthopedics input Fall precautions Very poor surgical candidate Also considered to be a poor candidate for bracing secondary to respiratory failure Ambulate ad mervin. Recommended lifting no greater than 5 pounds Needs follow-up with orthopedics upon discharge PT OT eval Mild rhabdomyolysis Secondary to fall Held statin Received IV fluids Monitor CK H/O TIA Hyperlipidemia On Statin--held as above GERD Continue PPI Hypothyroidism TSH elevated, low Free T4 Increase levothyroxine to 75 mcg daily Also on Cytomel Will need repeat thyroid function test as outpatient Anemia of chronic disease FOBT done in ER was negative Monitor CBC Vitamin B12 deficiency Continue Iron B12 supplement Mood disorder Mild dementia as per family Continue home medications DVT Px Lovenox SQ Code Status DNI/DNR Admission and Anticipated Discharge Date Admission Date: January 31, 2022 Subjective Patient is seen and examined at bedside Mental status seem to be more clear today No urinary retention noted by RN No new complaints Denies any chest pain, dyspnea, dizziness, nausea, abdominal pain Review of Systems Review of Systems: All systems reviewed & are unremarkable except as noted in Subjective Physical Exam Physical Exam: Physical Exam: Vitals signs as noted above General Appearance:Thin, no apparent distress Head: normocephalic, Atraumatic Eyes: normal inspection, EOMI Neck: supple, Trachea midline Respiratory/Chest: Decreased coarse breath sounds, No accessory muscle use Cardiovascular: S1, S2, No murmur Abdomen/GI:Soft, Non tender, Bowel sounds present Extremities/Musculoskeletal:normal inspection, no edema Neurologic/Psych:AAOX2, grossly no focal neurological deficits, Hearing impairment Skin: normal color, warm Results & Data Results & Data ([facility]) Vital Signs (Past 12 Hours) Vital Signs Temp Pulse Pulse Resp BP BP Pulse Ox 02/04/22 16:28 71 02/04/22 15:01 36.5 C 70 18 117/47 L 93 02/04/22 13:49 36.4 C L 76 16 111/63 93 02/04/22 11:50 36.8 C 64 18 126/78 94 02/04/22 12:45 81 16 90 02/04/22 10:00 02/04/22 07:35 37.0 C 61 16 141/69 H 93 02/04/22 07:18 61 16 92 02/04/22 07:09 60 O2 Del Method O2 Flow Rate 02/04/22 16:28 02/04/22 15:01 Nasal Cannula 2 02/04/22 13:49 Nasal Cannula 2 02/04/22 11:50 Nasal Cannula 2 02/04/22 12:45 Nasal Cannula 2 02/04/22 10:00 Nasal Cannula 2 02/04/22 07:35 Nasal Cannula 2 02/04/22 07:18 Room Air 02/04/22 07:09 Laboratory Results Short CBC 02/04/22 Range/Units 08:02 WBC 6.65 (4.8-10.8) K/ul Hgb 11.0 L (12.0-16.0) g/dl Hct 33.2 L (34.1-44.9) % Plt Count 225 (130-400) K/uL BMP 02/04/22 08:02 Sodium 138 Potassium 3.2 L Chloride 108 H Carbon Dioxide 26 BUN 16 Creatinine 0.88 Glucose 94 Calcium 8.6
[2022-02-04] MEDS: POTASSIUM CHLORIDE CRTAB 20 MEQ TABCR PO SCH (22:37)
[2022-02-04] MEDS: TAMSULOSIN HCL 0.4 MG CAP PO SCH (22:38)
[2022-02-04] MEDS: MIRTAZAPINE TAB 15 MG TAB PO SCH (22:38)
[2022-02-05] MEDS: ERTAPENEM SODIUM 1,000 MG in SYRINGE 0 ML IV SCH (02:07)
[2022-02-05] MEDS: LEVOTHYROXINE SODIUM 75 MCG TABLET PO SCH (05:56)
[2022-02-05] MEDS: LIOTHYRONINE SODIUM 5 MCG TAB PO SCH (05:56)
[2022-02-05] MEDS: Ipratropium HFA Inhaler (Combivent Respimat P&T Subs) INH SCH ×3 (07:42→19:32)
[2022-02-05] MEDS: Albuterol HFA 8 GM Inhaler (Combivent Respimat P&T Subs) INH SCH ×3 (07:42→19:33)
[2022-02-05 09:15] LABS: BUN Creatinine Ratio 20.7 (10-20); Calcium 8.8 mg/dl (8.5-10.1); Creatinine Clr Calc Pharmacy 39.4 ml/min; Est GFR (African American) 68.5 ml/min; Est GFR (Non-African American) 59.1 ml/min; Potassium 3.6 mmol/L (3.5-5.1)
[2022-02-05] MEDS: CETIRIZINE HCL 10 MG TABLET PO SCH (09:15)
[2022-02-05] MEDS: FLUTICASONE FUROATE 200MCG 14 PUFFS/INHALER INH SCH (09:15)
[2022-02-05] MEDS: ENOXAPARIN INJ 30 MG/0.3 ML SYR SQ SCH (09:16)
[2022-02-05] MEDS: PANTOprazole 40 MG TAB PO SCH (09:16)
[2022-02-05] MEDS: LIDOCAINE 5% 1 PATCH TD SCH (09:16)
[2022-02-05] MEDS: ESCITALOPRAM OXALATE 20 MG TAB PO SCH (09:17)
[2022-02-05] MEDS: GABAPENTIN 100 MG CAP PO SCH ×2 (09:17→21:38)
[2022-02-05] MEDS: QUEtiapine FUMARATE 50 MG TABCR PO SCH ×2 (09:17→21:37)
[2022-02-05] MEDS: MEGESTROL ACETATE SUSP 400 MG/10 ML UDC PO SCH (09:18)
[2022-02-05] MEDS: LINACLOTIDE 145 MCG CAPSULE PO SCH (09:18)
[2022-02-05] MEDS: ADVANCED PROBIOTIC 1250 MG CAPSULE PO SCH (09:18)
[2022-02-05] MEDS: CYANOCOBALAMIN (B-12) 500 MCG TABLET PO SCH (09:18)
[2022-02-05] MEDS: TOPIRAMATE 50 MG TAB PO SCH ×2 (09:18→21:38)
[2022-02-05] MEDS: MULTIVITAMIN TAB PO SCH (09:19)
[2022-02-05] MEDS: POTASSIUM CHLORIDE CRTAB 20 MEQ TABCR PO SCH ×2 (09:20→21:44)
--- NOTE | 2022-02-05 17:50 | Hospitalist Progress Note ---
Date of Service February 05, 2022 Assessment & Plan (1) Acute hypoxemic respiratory failure: Plan: Acute on chronic hypoxic respiratory failure Chronic oxygen dependency--2 L at baseline Multifactorial: Secondary to COPD exacerbation, possible aspiration pneumonia, Atelectasis --CT Chest:Bibasilar densities are nonspecific but favor atelectasis. A pneumonia could also have a similar appearance. Trace right pleural effusion. --Blood cultures: Negative --Normal Procalcitonin On ertapenem, prednisone, Nebs Continue supplemental oxygen to keep saturations 88 to 92% Aspiration precautions Speech therapy consulted completed prednisone course Respiratory status seem to be back to baseline Complicated UTI Acute metabolic encephalopathy-- delirium contributing as well H/O Recurrent ESBL UTI H/O overactive bladder Urinary retention On chronic ciprofloxacin suppression Therapy urine culture growing ESBL E.Coli Continue ertapenem Appreciate urology input Continue tamsulosin Delirium precautions Needs follow-up with urology upon discharge Appreciate ID Input Continue bladder scan every shift Need to complete 10 to 14 days of ertapenem Given susceptibility pattern, patient would not be benefited from chronic suppressive therapy with ciprofloxacin Will need ultrasound-guided IV line placed prior to discharge Acute T12 compression fracture Nondisplaced sternal fractures Secondary to multiple falls H/O ambulatory dysfunction --CT [id number] vertebral body fracture with mild loss of height and retropulsion, Multiple subacute to chronic mild endplate compression fractures within the thoracic spine, healing nondisplaced sternal fractures --Hip X ray:No fracture or dislocation within the pelvis or hips. Appreciate orthopedics input Fall precautions Very poor surgical candidate Also considered to be a poor candidate for bracing secondary to respiratory failure Ambulate ad mervin. Recommended lifting no greater than 5 pounds Needs follow-up with orthopedics upon discharge PT OT eval Mild rhabdomyolysis Secondary to fall Held statin Received IV fluids Monitor CK H/O TIA Hyperlipidemia On Statin--held as above GERD Continue PPI Hypothyroidism TSH elevated, low Free T4 Increase levothyroxine to 75 mcg daily Also on Cytomel Will need repeat thyroid function test as outpatient Anemia of chronic disease FOBT done in ER was negative Monitor CBC Vitamin B12 deficiency Continue Iron B12 supplement Mood disorder Mild dementia as per family Continue home medications DVT Px Lovenox SQ Code Status DNI/DNR Admission and Anticipated Discharge Date Admission Date: January 31, 2022 Subjective Patient is seen and examined at bedside Lethargic and sleepy today Could not obtain full ROS Poor appetite Updated patient's son over the phone Review of Systems Review of Systems: Other Physical Exam Physical Exam: Physical Exam: Vitals signs as noted above General Appearance:Thin, no apparent distress Head: normocephalic, Atraumatic Eyes: normal inspection, EOMI Neck: supple, Trachea midline Respiratory/Chest: Decreased coarse breath sounds, No accessory muscle use Cardiovascular: S1, S2, No murmur Abdomen/GI:Soft, Non tender, Bowel sounds present Extremities/Musculoskeletal:normal inspection, no edema Neurologic/Psych:AAOX2, grossly no focal neurological deficits, Hearing impairment Skin: normal color, warm Results & Data Results & Data ([facility]) Vital Signs (Past 12 Hours) Vital Signs Temp Pulse Pulse Resp BP BP Pulse Ox 02/05/22 15:46 36.7 C 72 20 110/61 91 02/05/22 14:29 75 02/05/22 13:12 78 17 94 02/05/22 12:53 36.4 C L 59 L 18 134/86 95 02/05/22 06:06 66 02/05/22 07:40 02/05/22 08:02 36.5 C 58 L 18 147/75 H 95 02/05/22 07:43 17 95 O2 Del Method O2 Flow Rate 02/05/22 15:46 Nasal Cannula 2 02/05/22 14:29 02/05/22 13:12 Nasal Cannula 3 02/05/22 12:53 Nasal Cannula 2 02/05/22 06:06 02/05/22 07:40 Nasal Cannula 2 02/05/22 08:02 Nasal Cannula 2 02/05/22 07:43 Nasal Cannula 3 Laboratory Results [facility] 02/05/22 08:15 Sodium 140 Potassium 3.6 Chloride 109 H Carbon Dioxide 25 BUN 18 Creatinine 0.87 Glucose 83 Calcium 8.8
[2022-02-05] MEDS: ACETAMINOPHEN 325 MG TAB PO PRN ×2 (18:35→21:43)
[2022-02-05] MEDS: MIRTAZAPINE TAB 15 MG TAB PO SCH (21:38)
[2022-02-05] MEDS: TAMSULOSIN HCL 0.4 MG CAP PO SCH (21:39)
[2022-02-06] MEDS: ERTAPENEM SODIUM 1,000 MG in SYRINGE 0 ML IV SCH (01:41)
[2022-02-06] MEDS: LIOTHYRONINE SODIUM 5 MCG TAB PO SCH (05:35)
[2022-02-06] MEDS: LEVOTHYROXINE SODIUM 75 MCG TABLET PO SCH (05:35)
[2022-02-06] MEDS: Albuterol HFA 8 GM Inhaler (Combivent Respimat P&T Subs) INH SCH ×2 (07:28→12:16)
[2022-02-06] MEDS: Ipratropium HFA Inhaler (Combivent Respimat P&T Subs) INH SCH ×2 (07:29→12:16)
[2022-02-06] MEDS: FLUTICASONE FUROATE 200MCG 14 PUFFS/INHALER INH SCH (08:07)
[2022-02-06] MEDS: LIDOCAINE 5% 1 PATCH TD SCH (08:07)
[2022-02-06] MEDS: ENOXAPARIN INJ 30 MG/0.3 ML SYR SQ SCH (08:08)
[2022-02-06] MEDS: GABAPENTIN 100 MG CAP PO SCH (08:09)
[2022-02-06] MEDS: CYANOCOBALAMIN (B-12) 500 MCG TABLET PO SCH (08:09)
[2022-02-06] MEDS: MEGESTROL ACETATE SUSP 400 MG/10 ML UDC PO SCH (08:10)
[2022-02-06] MEDS: MULTIVITAMIN TAB PO SCH (08:10)
[2022-02-06] MEDS: ESCITALOPRAM OXALATE 20 MG TAB PO SCH (08:10)
[2022-02-06] MEDS: PANTOprazole 40 MG TAB PO SCH (08:12)
[2022-02-06] MEDS: ADVANCED PROBIOTIC 1250 MG CAPSULE PO SCH (08:12)
[2022-02-06] MEDS: CETIRIZINE HCL 10 MG TABLET PO SCH (08:13)
[2022-02-06] MEDS: TOPIRAMATE 50 MG TAB PO SCH (08:13)
[2022-02-06] MEDS: LINACLOTIDE 145 MCG CAPSULE PO SCH (08:13)
[2022-02-06] MEDS: POTASSIUM CHLORIDE CRTAB 20 MEQ TABCR PO SCH (08:14)
[2022-02-06] MEDS: QUEtiapine FUMARATE 50 MG TABCR PO SCH (08:45)
[2022-02-06 09:38] LABS: Hematocrit (blood only) 38.7 % (34.1-44.9); Hemoglobin 12.8 g/dl (12.0-16.0); Mean Corpuscular Hemoglobin 29.6 pg (25.0-34.0); Mean Corpuscular Hgb Conc 33.1 g/dL (32.0-36.0); Mean Corpuscular Volume 89.4 fL (80.0-100.0); Mean Platelet Volume 10.3 fL (9.4-12.3); Platelet Count 257 K/uL (130-400); RDW Coefficient of Variation 17.1 % (11.5-14.5); RDW Standard Deviation 55.1 fL (36.4-46.3); Red Blood Count 4.33 M/uL (3.93-5.22); White Blood Count 6.89 K/ul (4.8-10.8)
[2022-02-06 10:12] LABS: Calcium 8.8 mg/dl (8.5-10.1); Creatinine Clr Calc Pharmacy 36.5 ml/min; Est GFR (African American) 62.3 ml/min; Est GFR (Non-African American) 53.8 ml/min; Potassium 3.6 mmol/L (3.5-5.1)
--- NOTE | 2022-02-06 11:58 | Hospitalist Progress Note ---
Date of Service February 06, 2022 Assessment & Plan (1) Acute UTI: Plan: Complicated UTI Acute metabolic encephalopathy-- delirium contributing as well - improved H/O Recurrent ESBL UTI H/O overactive bladder Urinary retention On chronic ciprofloxacin suppression Therapy urine culture growing ESBL E.Coli Continue ertapenem Appreciate urology input - follow up outpatient Continue tamsulosin Delirium precautions Appreciate ID Input Continue bladder scan every shift Need to complete 14 days of ertapenem Given susceptibility pattern, patient would not be benefited from chronic suppressive therapy with ciprofloxacin Will need ultrasound-guided IV line placed prior to discharge - follow up with CM for rehab placement (2) Acute hypoxemic respiratory failure: Plan: Acute on chronic hypoxic respiratory failure Chronic oxygen dependency--2 L at baseline Multifactorial: Secondary to COPD exacerbation, possible aspiration pneumonia, Atelectasis --CT Chest:Bibasilar densities are nonspecific but favor atelectasis. A pneumonia could also have a similar appearance. Trace right pleural effusion. --Blood cultures: Negative --Normal Procalcitonin s/p ertapenem, prednisone, Nebs - continues on ertapenem Continue supplemental oxygen to keep saturations 88 to 92% Aspiration precautions Speech therapy consulted s/p prednisone course Respiratory status seem to be back to baseline (3) Compression fracture: Plan: Acute T12 compression fracture Nondisplaced sternal fractures Secondary to multiple falls H/O ambulatory dysfunction --CT [id number] vertebral body fracture with mild loss of height and retropulsion, Multiple subacute to chronic mild endplate compression fractures within the thoracic spine, healing nondisplaced sternal fractures --Hip X ray:No fracture or dislocation within the pelvis or hips. Appreciate orthopedics input Fall precautions Very poor surgical candidate Also considered to be a poor candidate for bracing secondary to respiratory failure Ambulate ad mervin. Recommended lifting no greater than 5 pounds Needs follow-up with orthopedics upon discharge PT DARLENE riggins (4) Vitamin B12 deficiency: Plan: Continue Iron B12 supplement (5) Hypothyroidism: Plan: TSH elevated, low Free T4 Increase levothyroxine to 75 mcg daily Also on Cytomel Will need repeat thyroid function test as outpatient (6) Anemia: Plan: - likely Anemia of chronic disease FOBT done in ER was negative Monitor CBC (7) GERD (gastroesophageal reflux disease): Plan: - continue ppi (8) History of TIA (transient ischemic attack): Plan: H/O TIA Hyperlipidemia On Statin--held as above Plan DVT ppx: lovenox Code Status: DNR/DNI Dispo: telemetry Pedro Baez MD [facility] Medicine Admission and Anticipated Discharge Date Admission Date: January 31, 2022 Subjective Patient with recurrent UTI, overactive bladder, h/o TIA, HLD, GERD, hypothyroidism presented for acute hypoxemic respiratory failure, treated for COPD exacerbation and complicated UTI with ESBL E coli. Started on ertapenem IV for UTI with improvement. Patient is pending placement at rehab for continued IV abx treatment. Patient feels ok today. Appetite is ok only but improved. Denies any other complaints of chest pain, shortness of breath, abdominal pain, cough, dysuria, diarrhea, n/v. Review of Systems Review of Systems: As per HPI, all other systems reviewed and negative Physical Exam Physical Exam: General Appearance:Thin, no apparent distress Head: normocephalic, Atraumatic Eyes: normal inspection, EOMI Neck: supple, Trachea midline Respiratory/Chest: Decreased coarse breath sounds, No accessory muscle use Cardiovascular: S1, S2, No murmur Abdomen/GI:Soft, Non tender, Bowel sounds present Extremities/Musculoskeletal:normal inspection, no edema Neurologic/Psych:AAOX2, grossly no focal neurological deficits, Hearing impairment Skin: normal color, warm Results & Data Results & Data ([facility]) Vital Signs (Past 12 Hours) Vital Signs Temp Pulse Pulse Resp BP BP Pulse Ox 02/06/22 08:00 02/06/22 07:58 36.3 C L 54 L 16 140/74 91 02/06/22 07:30 62 20 94 02/06/22 07:00 62 02/06/22 04:00 35.9 C L 60 18 147/75 H 94 02/05/22 23:56 62 02/05/22 23:56 O2 Del Method O2 Flow Rate 02/06/22 08:00 Nasal Cannula 2 02/06/22 07:58 Room Air 02/06/22 07:30 Nasal Cannula 2 02/06/22 07:00 02/06/22 04:00 Nasal Cannula 2 02/05/22 23:56 02/05/22 23:56 Nasal Cannula 2 Diagnostic Findings Laboratory Results WBC 6.89 K/ul (4.8-10.8) 02/06/22 09:04 RBC 4.33 M/uL (3.93-5.22) 02/06/22 09:04 Hgb 12.8 g/dl (12.0-16.0) 02/06/22 09:04 Hct 38.7 % (34.1-44.9) 02/06/22 09:04 MCV 89.4 fL (80.0-100.0) 02/06/22 09:04 MCH 29.6 pg (25.0-34.0) 02/06/22 09:04 MCHC 33.1 g/dL (32.0-36.0) 02/06/22 09:04 RDW Std Deviation 55.1 fL (36.4-46.3) H 02/06/22 09:04 RDW Coeff of Nancy 17.1 % (11.5-14.5) H 02/06/22 09:04 Plt Count 257 K/uL (130-400) 02/06/22 09:04 MPV 10.3 fL (9.4-12.3) 02/06/22 09:04 Immature Gran % (Auto) 0.9 % 01/31/22 05:53 Neut % (Auto) 84.7 % 01/31/22 05:53 Lymph % (Auto) 8.3 % 01/31/22 05:53 [place] % (Auto) 5.3 % 01/31/22 05:53 Eos % (Auto) 0.3 % 01/31/22 05:53 Baso % (Auto) 0.5 % 01/31/22 05:53 Reticulocyte % (Auto) 1.5 % (0.5-2.0) 01/31/22 05:53 Neut # (Auto) 5.61 K/uL (1.4-6.5) 01/31/22 05:53 Lymph # (Auto) 0.55 K/uL (1.2-3.4) L 01/31/22 05:53 [place] # (Auto) 0.35 K/uL (0.24-0.82) 01/31/22 05:53 Eos # (Auto) 0.02 K/uL (0-0.50) 01/31/22 05:53 Baso # (Auto) 0.03 K/uL (0-0.2) 01/31/22 05:53 Reticulocyte # 0.06 10^6/uL (0.02-0.10) 01/31/22 05:53 Immature Gran # (Auto) 0.06 K/uL (0.00-0.02) H 01/31/22 05:53 ABG pH 7.47 (7.35-7.45) H 01/31/22 03:12 ABG pCO2 29 mmHg (35-46) L 01/31/22 03:12 ABG pO2 81 mmHg (80-95) 01/31/22 03:12 ABG HCO3 21 mmol/L (19-24) 01/31/22 03:12 ABG O2 Saturation 98.8 % (90-95) H 01/31/22 03:12 ABG Base Excess -1.5 mEq/L (-9-1.8) 01/31/22 03:12 Nick Test Pos (Pos) 01/31/22 03:12 Oxygen Given 4L 01/31/22 03:12 Sodium 139 mmol/L (136-145) 02/06/22 09:04 Potassium 3.6 mmol/L (3.5-5.1) 02/06/22 09:04 Chloride 108 mmol/L (98-107) H 02/06/22 09:04 Carbon Dioxide 23 mmol/L (21-32) 02/06/22 09:04 Anion Gap 8 (3-11) 02/06/22 09:04 BUN 15 mg/dl (6-23) 02/06/22 09:04 Creatinine 0.94 mg/dl (0.6-1.2) 02/06/22 09:04 Est Cr Clr Drug Dosing 36.5 ml/min 02/06/22 09:04 Est GFR ( Amer) 62.3 ml/min 02/06/22 09:04 Est GFR (Non-Af Amer) 53.8 ml/min 02/06/22 09:04 BUN/Creatinine Ratio 16.0 (10-20) 02/06/22 09:04 Glucose 114 mg/dl (70-99(Fasting)) H 02/06/22 09:04 POC Glucose 144 mg/dl (70-99) H 02/04/22 17:09 Calcium 8.8 mg/dl (8.5-10.1) 02/06/22 09:04 Magnesium 2.2 mg/dl (1.7-2.4) 02/04/22 08:02 Iron 66 mcg/dl (35-150) 01/31/22 05:53 Transferrin 285 mg/dl (200-360) 01/31/22 05:53 Ferritin 37.1 ng/ml (8-388) 01/31/22 05:53 Total Bilirubin 0.7 mg/dl (0.2-1.0) 01/30/22 22:21 AST 31 U/L (13-39) 01/30/22 22:21 ALT 20 U/L (7-52) 01/30/22 22:21 Alkaline Phosphatase 74 U/L (34-104) 01/30/22 22:21 Total Creatine Kinase 434 U/L (26-192) H 01/31/22 05:53 Troponin I High Sens 9.3 pg/ml (0-14) 01/30/22 22:21 Total Protein 8.0 gm/dl (6.0-8.3) 01/30/22 22:21 Albumin 4.6 gm/dl (3.4-5.0) 01/30/22 22:21 Globulin 3.4 gm/dl (2.5-4.0) 01/30/22 22:21 Albumin/Globulin Ratio 1.4 (0.9-2) 01/30/22 22:21 Vitamin B12 123 pg/ml (180-914) L 01/31/22 05:53 Folate 11.41 ng/ml (>5.38) 01/31/22 05:53 Procalcitonin < 0.05 ng/ml (0-0.5) 02/01/22 05:52 TSH 5.923 uIu/ml (0.300-4.500) H 02/02/22 08:12 Free T4 0.48 ng/dl (0.61-1.60) L 02/02/22 08:12 Urine Color Yellow 01/30/22 23:39 Urine Appearance Cloudy (Clear) A 01/30/22 23:39 Urine pH 7.5 (4.5-7.5) 01/30/22 23:39 Ur Specific [place] 1.019 (1.000-1.030) 01/30/22 23:39 Urine Protein Negative (Negative) 01/30/22 23:39 Urine Glucose (UA) Negative (Negative) 01/30/22 23:39 Urine Ketones Negative (Negative) 01/30/22 23:39 Urine Blood Negative (Negative) 01/30/22 23:39 Urine Nitrite Positive (Negative) A 01/30/22 23:39 Urine Bilirubin Negative (Negative) 01/30/22 23:39 Urine Urobilinogen Negative (Negative) 01/30/22 23:39 Ur Leukocyte Esterase 2+ (Negative) H 01/30/22 23:39 Urine WBC (Auto) >30 /hpf (0-5) H 01/30/22 23:39 Urine RBC (Auto) 0-4 /hpf (0-4) 01/30/22 23:39 U Hyaline Cast (Auto) 1-5 /lpf (0-5) 01/30/22 23:39 U Epithel Cells (Auto) 0-5 /lpf (0-5) 01/30/22 23:39 Urine Bacteria (Auto) 4+ (Negative) H 01/30/22 23:39 SARS-CoV-2, RNA, NAAT NEGATIVE (NEGATIVE) 01/30/22 22:25 Blood Type A Positive 01/31/22 05:53 Antibody Screen NEGATIVE 01/31/22 05:53 Impressions Chest X-Ray 01/30/22 22:33 XR chest 1V portable HISTORY: weakness COMPARISON: Chest 12/16/2021. FINDINGS: No pneumothorax. No pleural effusions. The heart remains mildly enlarged. Left basilar linear densities favor subsegmental atelectasis. Otherwise, the lungs are clear. IMPRESSION: Stable cardiomegaly. Otherwise, no acute process within the chest. ACT 112: Negative or not required by law. Electronically signed by: Barak Miller M.D. 01/31/2022 8:[address] 01/30/22 23:03 CT OF THE HEAD WITHOUT CONTRAST CLINICAL HISTORY: falls, confused? COMPARISON STUDY: Head CT December 16, 2021. TECHNIQUE: Helical axial images of the head were obtained without IV contrast. Automated exposure control was utilized for the study. A dose lowering technique was utilized adhering to the principles of ALARA. FINDINGS: No acute intracranial hemorrhage, midline shift or mass effect is present. White matter hypodensities are unchanged. The ventricular system is unremarkable. The basal cisterns are patent. No extra-axial collections are present. There are no findings to suggest acute dural sinus thrombosis or acute territorial infarct. No significant calvarial abnormalities are present. There is no acute calvarial fracture. Sphenoid sinus opacification with adjacent wall thickening is unchanged. This is likely chronic. IMPRESSION: 1. No acute intracranial findings. No change in appearance of the brain. 2. No acute calvarial fracture. ACT 112: Negative or not required by law. Electronically signed by: Marcus Muro M.D. 01/31/2022 6:43 AM Abdomen/Pelvis CT 01/30/22 23:18 CT OF THE ABDOMEN AND PELVIS WITHOUT CONTRAST CLINICAL HISTORY: fall, back pain COMPARISON STUDY: CT of the abdomen and pelvis October 18, 2021. Pelvis and right hip radiographs performed earlier today. TECHNIQUE: Axial images of the abdomen and pelvis were obtained without IV contrast. Images were reviewed in the axial, sagittal, and coronal planes. Automated exposure control was utilized for the study. A dose lowering technique was utilized adhering to the principles of ALARA. FINDINGS: A trace right pleural effusion is noted. Subpleural opacities within the lower lungs represent atelectasis. There are multiple old bilateral lower rib fractures. A T12 vertebral body fracture with mild loss of height and retropulsion is new since CT of October 18, 2021. This extends through the posterior cortex. No involvement of the posterior elements is identified. This fracture is likely acute. No additional acute fractures are identified on this exam. There is no pelvic or hip fracture. Evaluation of the solid abdominal viscera is suboptimal on this unenhanced exam. However, there is no evidence for traumatic injury to the liver, spleen, adrenal glands, kidneys or pancreas. A hiatal hernia is again noted. No evidence for a bowel obstruction. Diverticulosis without evidence for acute diverticulitis. There is no free fluid. No lymphadenopathy is present. No fluid collection is identified. IMPRESSION: 1. T12 vertebral body fracture with mild loss of height and retropulsion which is new since CT of October 18, 2021. This is likely acute. No additional acute fractures. 2. No traumatic findings within the abdomen or pelvis on unenhanced exam. 3. No bowel obstruction. ACT 112: Negative or not required by law. Electronically signed by: Marcus Muro M.D. 01/31/2022 6:[address] 01/30/22 23:[address] DOSE: 1495.93 mGy.cm HISTORY: fall TECHNIQUE: Multiaxial CT images of the cervical spine were performed and reformatted in the sagittal and coronal plane without the use of contrast. A dose lowering technique was utilized adhering to the principles of ALARA. COMPARISON: Cervical spine CT 12/16/2021.. FINDINGS: There is an old mild superior endplate compression deformity at T1. This remains unchanged. No acute fracture or subluxation within the cervical spine. Degenerative changes and postoperative changes are again noted. Prevertebral soft tissues are intact. No pneumothorax. IMPRESSION: 1. No acute fracture within the cervical spine. 2. No change in the chronic mild superior endplate compression deformity at T1. ACT 112: Negative or not required by law. Electronically signed by: Barak Miller M.D. 01/31/2022 7:[address] 01/30/22 23:18 CT chest diagnostic wo con CT DOSE: HISTORY: Back pain. falls, weak TECHNIQUE: Multiaxial CT images of the chest were performed without contrast. A dose lowering technique was utilized adhering to the principles of ALARA. COMPARISON: Thoracic spine CT 10/18/2021. FINDINGS: There are subacute to chronic mild endplate compression fractures at T1, T3, T9, and T12. No acute fractures identified within the thoracic spine. No associated retropulsion. There is a healing nondisplaced sternal fracture. There are old, healed bilateral rib fractures. Partial resection of the left first rib is noted. The visualized liver, spleen, and adrenal glands are unremarkable. There is a trace right pleural effusion. Normal esophagus. Small to moderate hiatus hernia is noted. The heart is mildly enlarged. Normal caliber thoracic aorta. No mediastinal or hilar lymphadenopathy. No pneumothorax. The central airways are patent. Focal rounded density within the base of the left lower lobe which is new from the prior study and therefore favors round atelectasis or a pneumonia. This measures 3.2 cm. Calcified granulomas within the right upper lobe. Patchy densities within the right lung base posteriorly also favor atelectasis. No evidence for pulmonary edema. IMPRESSION: 1. Multiple subacute to chronic mild endplate compression fractures within the thoracic spine as described above. No associated retropulsion. 2. Healing nondisplaced sternal fractures are also noted. 3. Bibasilar densities are nonspecific but favor atelectasis. A pneumonia could also have a similar appearance. 4. Trace right pleural effusion. ACT 112: Negative or not required by law. Electronically signed by: Barak Miller M.D. 01/31/2022 7:34 AM Hip/Pelvis X-Ray 01/30/22 23:18 XR hip RT 2V w pelvis CLINICAL HISTORY: fall COMPARISON STUDY: Abdomen and pelvis CT 01/30/2022. FINDINGS: No fracture or dislocation within the pelvis or hips. The sacrum appears intact. Mild osteoarthritis within the bilateral hips. Degenerative changes within the lumbar spine. IMPRESSION: No fracture or dislocation within the pelvis or hips. ACT 112: Negative or not required by law. Electronically signed by: Barak Miller M.D. 01/31/2022 8:21 AM Medications Administered Current Inpatient Medications Acetaminophen (Acetaminophen 325 Mg Tab) 650 mg PO Q4H PRN PRN Reason: Pain or Fever Stop: 03/02/22 05:27 Last Admin: 02/05/22 21:43 Dose: 650 mg Albuterol (Albuterol Hfa 8 Gm Inhaler (Combivent Respimat P&T Subs)) 1 puffs INH [id number] PITO; Protocol Stop: 03/03/22 06:59 Last Admin: 02/06/22 07:28 Dose: 1 puffs Artificial Tears (Artificial Tears) 1 drops OP QID PRN PRN Reason: Dry Eye(S) Stop: 03/02/22 05:38 Cetirizine HCl (Cetirizine Hcl 10 Mg Tablet) 10 mg PO DAILY [facility] Stop: 03/02/22 08:59 Last Admin: 02/06/22 08:13 Dose: 10 mg Cyanocobalamin (Cyanocobalamin (B-12) 500 Mcg Tablet) 1,000 mcg PO QAM [facility] Stop: 03/02/22 08:59 Last Admin: 02/06/22 08:09 Dose: 1,000 mcg Enoxaparin Sodium (Enoxaparin Inj 30 Mg/0.3 Ml Syr) 30 mg SQ QAM [facility] Stop: 03/02/22 08:59 Last Admin: 02/06/22 08:08 Dose: 30 mg Escitalopram Oxalate (Escitalopram Oxalate 20 Mg Tab) 20 mg PO QAM [facility] Stop: 03/02/22 08:59 Last Admin: 02/06/22 08:10 Dose: 20 mg Fluticasone Furoate (Fluticasone Furoate 200mcg 14 Puffs/Inhaler) 1 puffs INH DAILY [facility] Stop: 03/02/22 08:59 Last Admin: 02/06/22 08:07 Dose: 1 puffs Gabapentin (Gabapentin 100 Mg Cap) 200 mg PO BID [facility] Stop: 03/02/22 08:59 Last Admin: 02/06/22 08:09 Dose: 200 mg Ertapenem 1,000 mg/ Syringe 10 mls @ 2 mls/min IV Q24H PITO; Protocol Stop: 02/15/22 01:59 Last Admin: 02/06/22 01:41 Dose: 2 mls/min Ipratropium [place] (Ipratropium Hfa Inhaler (Combivent Respimat P&T Subs)) 1 puffs INH Q6RWA PITO; Protocol Stop: 03/03/22 06:59 Last Admin: 02/06/22 07:29 Dose: 1 puffs Lactobacillus Acidophilus (Advanced Probiotic 1250 Mg Capsule) 2 cap PO DAILY [facility] Stop: 03/02/22 08:59 Last Admin: 02/06/22 08:12 Dose: 2 cap Levothyroxine Sodium (Levothyroxine Sodium 75 Mcg Tablet) 75 mcg PO DAILYBB [facility] Stop: 03/02/22 06:29 Last Admin: 02/06/22 05:35 Dose: 75 mcg Lidocaine (Lidocaine 5% 1 Patch) 1 patch TD QAM [facility] Stop: 03/02/22 02:39 Last Admin: 02/06/22 08:07 Dose: 1 patch Linaclotide (Linaclotide 145 Mcg Capsule) 145 mcg PO DAILY [facility] Stop: 03/02/22 08:59 Last Admin: 02/06/22 08:13 Dose: 145 mcg Liothyronine Sodium (Liothyronine Sodium 5 Mcg Tab) 5 mcg PO DAILYBB [facility] Stop: 03/02/22 06:29 Last Admin: 02/06/22 05:35 Dose: 5 mcg Megestrol Acetate (Megestrol Acetate Susp 400 Mg/10 Ml Udc) 400 mg PO DAILY [facility] Stop: 03/02/22 08:59 Last Admin: 02/06/22 08:10 Dose: 400 mg Mirtazapine (Mirtazapine Tab 15 Mg Tab) 7.5 mg PO HS [facility] Stop: 03/02/22 20:59 Last Admin: 02/05/22 21:38 Dose: 7.5 mg Miscellaneous (Remove Lidoderm Patch) 1 each N/A DAILY@2100 [facility] Stop: 03/02/22 14:59 Last Admin: 02/05/22 21:54 Dose: Not Given Multivitamins (Multivitamin Tab) 1 tab PO DAILY [facility] Stop: 03/02/22 08:59 Last Admin: 02/06/22 08:10 Dose: 1 tab Pantoprazole Sodium (Pantoprazole 40 Mg Tab) 40 mg PO DAILY@0730 [facility] Stop: 03/02/22 07:29 Last Admin: 02/06/22 08:12 Dose: 40 mg Potassium Chloride (Potassium Chloride Crtab 20 Meq Tabcr) 20 meq PO BID [facility] Stop: 03/06/22 20:59 Last Admin: 02/06/22 08:14 Dose: 20 meq Quetiapine Fumarate (Quetiapine Fumarate 50 Mg Tabcr) 100 mg PO BID [facility] Stop: 03/02/22 08:59 Last Admin: 02/06/22 08:45 Dose: 100 mg Senna/Docusate Sodium (Docusate Sodium/Senna 50/8.6mg Tab) 2 tab PO HS PRN PRN Reason: Constipation Stop: 03/02/22 05:39 Last Admin: 02/02/22 09:00 Dose: 2 tab Tamsulosin HCl (Tamsulosin Hcl 0.4 Mg Cap) 0.8 mg PO HS [facility] Stop: 03/02/22 20:59 Last Admin: 02/05/22 21:39 Dose: 0.8 mg Topiramate (Topiramate 50 Mg Tab) 50 mg PO BID [facility] Stop: 03/02/22 08:59 Last Admin: 02/06/22 08:13 Dose: 50 mg
[2022-02-06] MEDS: ACETAMINOPHEN 325 MG TAB PO PRN (12:18)
--- NOTE | 2022-02-06 12:59 | Discharge Summary ---
Date of Service February 06, 2022 Admission HPI Per Admitting Provider History obtained from patient, family, and records. Medical history significant for COPD, hx TIA, hyperlipidemia, hypothyroidism, recurrent UTIs (history of ESBL organism) on chronic ciprofloxacin suppression Rx, history of overactive bladder as per records, GERD, hypothyroidism, mood disorder, mild dementia as per family. Patient moved to local personal care facility from [facility] last October 2021 to be close to her son who lives locally. Patient noted to be more confused than usual the last week as per son. 3 falls noted yesterday Patient complaining of low back discomfort after fall. Back pain going to the legs as per patient. No fever, no chills. Patient denies chest pain, no shortness of breath. Patient noted to be coughing by son. Aspiration concerns as per son. O2 sats noted to be 80s at 1 point during ER stay. Ertapenem administered at the ER. Medical History as above Surgical History : neck surgeries, ARISTEO Family History : Heart disease, DM, stroke Personal/Social history : Non-smoker, no EtOH intake, retired infection control nurse, personal-jail resident Admission Exam Per Admitting Provider GENERAL: uncomfortable, slightly hard of hearing, oriented to place, no respiratory distress SKIN: Pallor, warm HEENT: Pale palpebral conjunctivae, no ptosis, dry buccal mucosa, nasal cannula in place NECK : Supple, no tenderness CHEST : Decreased breath sounds, no tenderness HEART : RRR, no obvious murmurs ABDOMEN: Some distention, nontender RECTAL : Intact sphincter, brown stool (FOBT negative) BACK :mid back tenderness, negative straight leg raise test EXTREMITIES : Minimal LE swelling, no LE tenderness, no other conspicuous deformities noted NEUROLOGIC : Oriented to place, no facial asymmetry, slightly hard of hearing, gait and stance not assessed Principal Diagnosis complicated UTI Discharge Exam General Appearance:Thin, no apparent distress Head: normocephalic, Atraumatic Eyes: normal inspection, EOMI Neck: supple, Trachea midline Respiratory/Chest: Decreased coarse breath sounds, No accessory muscle use Cardiovascular: S1, S2, No murmur Abdomen/GI:Soft, Non tender, Bowel sounds present Extremities/Musculoskeletal:normal inspection, no edema Neurologic/Psych:AAOX2, grossly no focal neurological deficits, Hearing impairment Skin: normal color, warm Discharge Data Allergies Allergy/AdvReac Type Severity Reaction Status Date / Time amitriptyline Allergy Unknown Unverified 12/16/21 19:15 celecoxib [From Celebrex] Allergy Unknown Unverified 12/16/21 19:15 cyclobenzaprine [From Amrix] Allergy Unknown Unverified 12/16/21 19:15 divalproex sodium Allergy Unknown Unverified 12/16/21 19:15 [From Depakote] iodine Allergy Unknown Unverified 12/16/21 19:15 scopolamine Allergy Unknown Unverified 12/16/21 19:15 tegaserod [From Zelnorm] Allergy Unknown Unverified 12/16/21 19:15 zolpidem Allergy Unknown Unverified 12/16/21 19:15 Consultations 01/31/22 01:38 ED Decision to Admit Stat 01/31/22 02:35 Consult Orthopedic Surgery Routine Consult Urology Routine 02/04/22 07:00 Consult Infectious Diseases Routine Ordered Studies 01/30/22 23:03 CT head/brain wo con Stat 01/30/22 23:18 CT abd pelvis wo con Stat CT cervical spine wo con Stat CT chest diagnostic wo con Stat Hospital Course (1) Acute UTI: Complicated UTI Acute metabolic encephalopathy-- delirium contributing as well - improved H/O Recurrent ESBL UTI H/O overactive bladder Urinary retention On chronic ciprofloxacin suppression Therapy urine culture growing ESBL E.Coli Continue ertapenem Appreciate urology input - follow up outpatient Continue tamsulosin Delirium precautions Appreciate ID Input Continue bladder scan every shift Need to complete 14 days of ertapenem Given susceptibility pattern, patient would not be benefited from chronic suppressive therapy with ciprofloxacin - will discharge to [facility] with IV ertapenem until 02/15/2022 (2) Acute hypoxemic respiratory failure: Acute on chronic hypoxic respiratory failure Chronic oxygen dependency--2 L at baseline Multifactorial: Secondary to COPD exacerbation, possible aspiration pneumonia, Atelectasis --CT Chest:Bibasilar densities are nonspecific but favor atelectasis. A pneumonia could also have a similar appearance. Trace right pleural effusion. --Blood cultures: Negative --Normal Procalcitonin s/p ertapenem, prednisone, Nebs - continues on ertapenem Continue supplemental oxygen to keep saturations 88 to 92% Aspiration precautions Speech therapy consulted s/p prednisone course Respiratory status seem to be back to baseline (3) Compression fracture: Acute T12 compression fracture Nondisplaced sternal fractures Secondary to multiple falls H/O ambulatory dysfunction --CT [id number] vertebral body fracture with mild loss of height and retropulsion, Multiple subacute to chronic mild endplate compression fractures within the thoracic spine, healing nondisplaced sternal fractures --Hip X ray:No fracture or dislocation within the pelvis or hips. Appreciate orthopedics input Fall precautions Very poor surgical candidate Also considered to be a poor candidate for bracing secondary to respiratory failure Ambulate ad mervin. Recommended lifting no greater than 5 pounds Needs follow-up with orthopedics upon discharge PT OT vaishnavi (4) Vitamin B12 deficiency: Continue Iron B12 supplement (5) Hypothyroidism: TSH elevated, low Free T4 Increase levothyroxine to 75 mcg daily Also on Cytomel Will need repeat thyroid function test as outpatient (6) Anemia: - likely Anemia of chronic disease FOBT done in ER was negative Monitor CBC (7) GERD (gastroesophageal reflux disease): - continue ppi (8) History of TIA (transient ischemic attack): H/O TIA Hyperlipidemia On Statin--held as above Plan DVT ppx: lovenox Code Status: DNR/DNI Dispo: telemetry Pedro Baez MD [facility] Medicine Total Time Total Time Spent Total Time Spent (In Minutes): 35 Total Time Includes: Examination of the Patient, Discharge Planning and Medication Reconciliation Discharge Plan Discharge Items Patient Disposition: Transfer Inpatient Rehab Fac Reason For Visit: RESP FAILURE Discharge Diagnosis: Complicated UTI Health Concerns: Current Inpatient Medications Acetaminophen (Acetaminophen 325 Mg Tab) 650 mg PO Q4H PRN PRN Reason: Pain or Fever Albuterol (Albuterol Hfa 8 Gm Inhaler (Combivent Respimat P&T Subs)) 1 puffs INH Q6RWA [facility]; Protocol Artificial Tears (Artificial Tears) 1 drops OP QID PRN PRN Reason: Dry Eye(S) Cetirizine HCl (Cetirizine Hcl 10 Mg Tablet) 10 mg PO DAILY PITO Cyanocobalamin (Cyanocobalamin (B-12) 500 Mcg Tablet) 1,000 mcg PO QAM PITO Escitalopram Oxalate (Escitalopram Oxalate 20 Mg Tab) 20 mg PO QAM PITO Fluticasone Furoate (Fluticasone Furoate 200mcg 14 Puffs/Inhaler) 1 puffs INH DAILY PITO Gabapentin (Gabapentin 100 Mg Cap) 200 mg PO BID PITO Ertapenem 1,000 mg/ Syringe 10 mls @ 2 mls/min IV Q24H [facility]; Protocol Stop: 02/15/22 Ipratropium [place] (Ipratropium Hfa Inhaler (Combivent Respimat P&T Subs)) 1 puffs INH Q6RWA [facility]; Protocol Lactobacillus Acidophilus (Advanced Probiotic 1250 Mg Capsule) 2 cap PO DAILY PITO Levothyroxine Sodium (Levothyroxine Sodium 75 Mcg Tablet) 75 mcg PO DAILYBB [facility] Lidocaine (Lidocaine 5% 1 Patch) 1 patch TD QAM [facility] Linaclotide (Linaclotide 145 Mcg Capsule) 145 mcg PO DAILY PITO Liothyronine Sodium (Liothyronine Sodium 5 Mcg Tab) 5 mcg PO DAILYBB PITO Megestrol Acetate (Megestrol Acetate Susp 400 Mg/10 Ml Udc) 400 mg PO DAILY PITO Mirtazapine (Mirtazapine Tab 15 Mg Tab) 7.5 mg PO HS PITO Multivitamins (Multivitamin Tab) 1 tab PO DAILY PITO Pantoprazole Sodium (Pantoprazole 40 Mg Tab) 40 mg PO DAILY@0730 [facility] Quetiapine Fumarate (Quetiapine Fumarate 50 Mg Tabcr) 100 mg PO BID PITO Senna/Docusate Sodium (Docusate Sodium/Senna 50/8.6mg Tab) 2 tab PO HS PRN PRN Reason: Constipation Tamsulosin HCl (Tamsulosin Hcl 0.4 Mg Cap) 0.8 mg PO HS PITO Topiramate (Topiramate 50 Mg Tab) 50 mg PO BID PITO Activity: Resume your previous activity Non-emergency contact: Primary Care Provider, Surgeon and Urologist Call non-emergency contact if: you have any medication questions and your symptoms worsen [facility] [facility] [[facility] [place]] - Diet: Regular Addtl Attending Provider Instructions: You were admitted for confusion and found to have COPD exacerbation as well as complicated UTI for which you received treatment. You were given steroids and antibiotics for the COPD exacerbation with improvement. You had a complicated urinary tract infection (UTI) with resistant bacteria requiring IV antibiotics with ertapenem. You will need to complete a total of 14 days of antibiotic therapy for the UTI, your last day will be 02/15/2022. You were also found to have a compression fracture of your thoracic spine and should have orthopedics follow up in their office for further discussion. Pending Studies at Discharge: No Stand-Alone Forms: My [facility] Skilled Items Patient informed of condition?: Yes DNR: Yes Discharge Level of Care: Acute rehab Communicable Disease: No Discharge Prognosis: Stable Lines: Peripheral IV Urinary Catheter: No Medications and DC Order Prescriptions: Continued Ajovy Syringe 225 mg/1.5 mL syringe 225 mg SUBCUT MONTHLY Rx Instructions: administer on Friday of every month ascorbic acid (vitamin C) [Vitamin C] 500 mg Tablet 500 mg PO DAILY ciprofloxacin HCl [Cipro] 250 mg Tablet 250 mg PO DAILY escitalopram oxalate 20 mg tablet 20 mg PO QAM esomeprazole magnesium 40 mg capsule,delayed release(DR/EC) 40 mg PO DAILYBB fluticasone propionate [Flovent HFA] 220 mcg/actuation HFA aerosol inhaler 2 inh INHALATION BID Rx Instructions: 2 puffs into lungs 2 times a day gabapentin 100 mg capsule 200 mg PO BID levocetirizine 5 mg tablet 5 mg PO BID levothyroxine 50 mcg tablet 50 mcg PO DAILYBB Linzess 145 mcg capsule 145 mcg PO DAILY liothyronine 5 mcg tablet 5 mcg PO QAM mirtazapine [Remeron] 15 mg Tablet 7.5 mg PO HS Rx Instructions: take 1/2 tablet by mouth at bedtime multivitamin Tablet 1 tab PO DAILY hydroxyzine HCl 10 mg tablet 10 mg PO QAM PRN (Reason: Itching) hydroxyzine HCl 25 mg tablet 25 mg PO HS PRN (Reason: Itching) ondansetron HCl [Zofran] 4 mg Tablet 4 mg PO Q8 PRN (Reason: Nausea And Vomiting) Excedrin Extra Strength 250-250-65 mg Tablet 1 tab PO Q6H MDD 4 doses PRN (Reason: Pain) Rx Instructions: do not exceed for doses in 24 hours Senna Plus 8.6-50 mg Capsule 2 tab-cap PO HS PRN (Reason: Constipation) Rx Instructions: take 2 tabs (17.2/100 mg) by mouth at bedtime for constipation betamethasone valerate 0.1 % ointment 1 applic TOPICAL BID PRN (Reason: dermatitis) quetiapine [Seroquel XR] 50 mg Tablet Extended Release 24 Hr 100 mg PO BID Rx Instructions: take 2 tablets by mouth twice a day rosuvastatin [Crestor] 5 mg Tablet 5 mg PO HS tamsulosin [Flomax] 0.4 mg Capsule 0.8 mg PO HS Rx Instructions: 2 capsule dose topiramate [Topamax] 50 mg Tablet 50 mg PO BID Xiidra 5 % dropperette 1 drp OPB BID acetaminophen [Tylenol] 325 mg Tablet 650 mg PO Q4 MDD 3g PRN (Reason: Fever Or Pain) Rx Instructions: use for temperature > 100f or mild pain Combivent Respimat 20-100 mcg/actuation Mist 1 puff INHALATION .Q 6 HRS WHILE AWAKE megestrol 400 mg/10 mL (40 mg/mL) suspension 400 mg PO DAILY Rx Instructions: take 10 ml dose PreserVision AREDS-2 250-90-40-1 mg Capsule 1 tab PO DAILY tramadol 50 mg tablet 50 mg PO BID Isatu-Bid 1 cap PO BID Aveeno Daily Moisturizing 1.2 % Lotion 1 ea TOPICAL BID Rx Instructions: apply to areas on back for itching ketorolac 10 mg Tablet 10 mg PO Q6H PRN (Reason: Migraine Headache) Rx Instructions: do not take with migraine relief medications Artificial Tears (PF) Dropperette 1 drp OPB QID PRN (Reason: Dry Eye(S)) hydrocortisone 1 % Cream 1 applic TOPICAL TID PRN (Reason: itchiness) triamcinolone acetonide 0.1 % Ointment 1 applic TOPICAL BID PRN (Reason: bursitis) Discharge Orders: Discharge Order (Routine); Ordered 02/06/22 Ordered By: Pedro Baez Admission Data Admit Date/Time: 01/31/22 02:26 Attending Provider: Pedro Baez Admit Provider: Marcos Birmingham Primary Care Provider: [facility] Other Providers: Daniel Bravo ; Marcos Birmingham ; Miguel Morales ; Agustin Davidson ; Anson Foote I. ; True Richards II ; Sona Daley ; Matty Spaulding ; Damien Plummer ; Melissa Casas ; [facility]
[2022-02-06] MEDS ORDERED: POLYETHYLENE (MIRALAX) 17 GM PACK PO STA (13:07)
[2022-02-06] MEDS ORDERED: bisacodyL 5 MG TABEC PO ONE (13:07)
== END 2022-02-06 14:37 | DRG 689 ==
LOC: ED 22:06 → SUATTDRO 01-31 02:26 → EDINP 01-31 02:26 → 2W 01-31 05:13

== ENCOUNTER 2022-02-22 22:30 | Inpatient (IN) ==
[2022-02-22] MEDS ORDERED: SODIUM CHLORIDE 0.9% 1000ML 500 ML IV ONE (22:33)
[2022-02-22] MEDS ORDERED: ERTAPENEM SODIUM 10 ML IV STA (22:55)
--- NOTE | 2022-02-22 23:03 | Emergency Department Note ---
History of Present Illness General Chief complaint: Altered Mental Status Stated complaint: AMS Time Seen by Provider: 02/22/22 22:31 History of Present Illness This 89-year-old from the long-term with a history of ESBL UTIs who just finished Invanz on the presents to the ER complaining of urinary discomfort with abdominal pain and not feeling well Location: Generalized Quality: Not feeling well Severity: Moderate Duration: Today Timing: Today Context: Patient was concerned and came in Modifying factors: better with rest; worse with activity Patient denies chest pain, dyspnea, fevers, vomiting, diarrhea, back pain. Son is present for the conversation. Home Medications Medication Instructions Recorded Confirmed Type acetaminophen 325 mg tablet 650 mg PO Q4 PRN Fever Or Pain 10/18/21 02/22/22 History (Tylenol) ascorbic acid (vitamin C) 500 mg 500 mg PO DAILY 10/18/21 02/22/22 History tablet (Vitamin C) cjwbemt-etiybxxylvozt-mpiyxqjf 250 1 tab PO Q6H PRN Pain 10/18/21 02/22/22 History mg-250 mg-65 mg tablet (Excedrin Extra Strength) betamethasone valerate 0.1 % 1 applic topical BID PRN dermatitis 10/18/21 02/22/22 History topical ointment escitalopram oxalate 20 mg tablet 20 mg PO QAM depression 10/18/21 02/22/22 History esomeprazole magnesium 40 mg 40 mg PO DAILYBB GERD 10/18/21 02/22/22 History capsule,delayed release fluticasone propionate 220 2 inh inhalation BID 10/18/21 02/22/22 History mcg/actuation HFA aerosol inhaler (Flovent HFA) fremanezumab-vfrm 225 mg/1.5 mL 225 mg subcut MONTHLY 10/18/21 02/22/22 History subcutaneous syringe (Ajovy Syringe) gabapentin 100 mg capsule 200 mg PO BID 10/18/21 02/22/22 History hydroxyzine HCl 10 mg tablet 10 mg PO QAM PRN Itching 10/18/21 02/22/22 History hydroxyzine HCl 25 mg tablet 25 mg PO HS PRN Itching 10/18/21 02/22/22 History levocetirizine 5 mg tablet 5 mg PO BID 10/18/21 02/22/22 History lifitegrast 5 % eye drops in a 1 drp OPB BID 10/18/21 02/22/22 History dropperette (Xiidra) linaclotide 145 mcg capsule 145 mcg PO DAILY 10/18/21 02/22/22 History (Linzess) mirtazapine 15 mg tablet (Remeron) 7.5 mg PO HS 10/18/21 02/22/22 History multivitamin 1 tab PO DAILY 10/18/21 02/22/22 History quetiapine 50 mg tablet,extended 100 mg PO BID 10/18/21 02/22/22 History release 24 hr (Seroquel XR) rosuvastatin 5 mg tablet (Crestor) 5 mg PO HS 10/18/21 02/22/22 History sennosides 8.6 mg-docusate sodium 2 tab-cap PO HS PRN Constipation 10/18/21 02/22/22 History 50 mg capsule (Senna Plus) tamsulosin 0.4 mg capsule (Flomax) 0.8 mg PO HS 10/18/21 02/22/22 History topiramate 50 mg tablet (Topamax) 50 mg PO BID 10/18/21 02/22/22 History Isatu-Bid 1 cap PO BID 12/16/21 02/22/22 History dextran 70-hypromellose eye drops 1 drp OPB QID PRN Dry Eye(S) 12/16/21 02/22/22 History in a dropperette (Artificial Tears (PF) drops in a dropperette) dimethicone 1.2 %-colloidal 1 ea topical BID 12/16/21 02/22/22 History oatmeal lotion (Aveeno Daily Moisturizing) hydrocortisone 1 % topical cream 1 applic topical TID PRN itchiness 12/16/21 02/22/22 History ipratropium 20 mcg-albuterol 100 1 puff inhalation .Q 6 HRS WHILE 12/16/21 02/22/22 History mcg/actuation mist for inhalation AWAKE (Combivent Respimat) ketorolac 10 mg tablet 10 mg PO Q6H PRN Migraine Headache 12/16/21 02/22/22 History megestrol 400 mg/10 mL (40 mg/mL) 400 mg PO DAILY 12/16/21 02/22/22 History oral suspension tramadol 50 mg tablet 50 mg PO BID 12/16/21 02/22/22 History triamcinolone acetonide 0.1 % 1 applic topical BID PRN bursitis 12/16/21 02/22/22 History topical ointment vit C 250 mg-vit E 90 mg-zinc 40 1 tab PO DAILY 12/16/21 02/22/22 History mg-copper 1 he-ptpzal-wtrjuw capsule (PreserVision AREDS-2) ciprofloxacin HCl 250 mg tablet 250 mg PO DAILY 02/22/22 02/22/22 History levothyroxine 75 mcg tablet 75 mcg PO DAILYBB 02/22/22 02/22/22 History melatonin 3 mg tablet 3 mg PO HS 02/22/22 02/22/22 History ondansetron 4 mg disintegrating 4 mg translingual Q8H PRN 02/22/22 02/22/22 Hi story tablet NAUSEA/VOMITING paraben-cetyl alcohol-stearyl 1 applic topical BID 02/22/22 02/22/22 History alcohol-propy glycol-sls topical still cleaner tube (Cetaphil Gentle Cleanser topical cleanser) potassium bicarbonate-citric acid 25 meq PO BIDM 02/22/22 02/22/22 History 25 mEq effervescent tablet (Effer-K) Allergies Allergy/AdvReac Type Severity Reaction Status Date / Time amitriptyline Allergy Unknown Unknown Verified 02/22/22 22:52 celecoxib [From Celebrex] Allergy Unknown ON Verified 02/22/22 22:52 MED LIST cyclobenzaprine [From Amrix] Allergy Unknown ON Verified 02/22/22 22:52 MED LIST divalproex sodium Allergy Unknown ON Verified 02/22/22 22:52 [From Depakote] MED LIST iodine Allergy Unknown ON Y Verified 02/22/22 22:52 MED LIST scopolamine Allergy Unknown ON Y Verified 02/22/22 22:52 MED LIST tegaserod [From Zelnorm] Allergy Unknown ON Verified 02/22/22 22:52 MED LIST zolpidem Allergy Unknown ON Verified 02/22/22 22:52 MED LIST Past Med/Surg History Medical History (Updated 02/23/22 @ 01:53 by Shantal Fournier PA-C) Anxiety Depression Seizures Surgical History (Updated 02/22/22 @ 23:00 by Shantal Fournier PA-C) No pertinent past surgical history Social History Smoking Status: Never smoker Hx Alcohol Use: No Hx Substance Use: No Preferred Language: Kyrgyz Communication Ability: Effective Dental Assistant Required: No Current Living Situation: Personal Care Facility Current Living Situation Comment: Lives in personal care facility Feels Safe at Home: Yes Assistive Devices: Oxygen - Continuous Review of Systems A total of 10 systems reviewed and were otherwise negative Physical Exam Vital Signs Vital Signs - 24 hr 02/22/22 22:25 02/22/22 22:32 02/22/22 22:32 Temperature 36.7 C Temperature Source Oral Pulse Rate 64 64 Pulse Rate from SpO2 Sensor Pulse Rhythm Regular Regular Pulse Strength Normal Respiratory Rate 16 16 Respiratory Effort / Characteristics Non-Labored Labored Respiratory Depth Normal Blood Pressure 120/62 Blood Pressure [Right Arm] 120/62 Blood Pressure Mean 81 Blood Pressure Mean [Right Arm] 81 Pulse Oximetry 92 92 Oxygen Delivery Method Nasal Cannula Nasal Cannula Oxygen Flow Rate 2 2 Sepsis Recent Fever Within 48 Hours No Sepsis New/Unexplained Change in Mental Status No Sepsis Action Taken by Nursing No Action Required Oxygen Flow Rate - Titration 02/22/22 22:41 02/22/22 23:31 02/23/22 00:00 Temperature Temperature Source Pulse Rate 69 70 Pulse Rate from SpO2 Sensor 69 63 Pulse Rhythm Pulse Strength Respiratory Rate 9 L 19 Respiratory Effort / Characteristics Respiratory Depth Blood Pressure 123/56 L 106/58 L Blood Pressure [Right Arm] Blood Pressure Mean 78 74 Blood Pressure Mean [Right Arm] Pulse Oximetry 92 94 69 L Oxygen Delivery Method Nasal Cannula Oxygen Flow Rate Sepsis Recent Fever Within 48 Hours Sepsis New/Unexplained Change in Mental Status Sepsis Action Taken by Nursing Oxygen Flow Rate - Titration 3 02/23/22 01:00 Temperature Temperature Source Pulse Rate Pulse Rate from SpO2 Sensor 71 Pulse Rhythm Pulse Strength Respiratory Rate Respiratory Effort / Characteristics Respiratory Depth Blood Pressure 92/48 L Blood Pressure [Right Arm] Blood Pressure Mean 62 Blood Pressure Mean [Right Arm] Pulse Oximetry 93 Oxygen Delivery Method Oxygen Flow Rate Sepsis Recent Fever Within 48 Hours Sepsis New/Unexplained Change in Mental Status Sepsis Action Taken by Nursing Oxygen Flow Rate - Titration VITALS: Vitals are noted on the nurse's note and reviewed by myself. Vital signs stable. GENERAL: Pleasant female, in no acute distress, nondiaphoretic, well-developed well-nourished. SKIN: The skin was without rashes, erythema, edema, or bruising. There is no tenting of the skin. Capillary reflex less than 2 seconds. HEAD: Normocephalic atraumatic. EARS: External auditory canals clear, EYES: Pupils equal round and reactive to light and accommodation. Conjunctivae without injection, sclerae without icterus. Extraocular movements intact. NOSE: Patent, turbinates without inflammation or discharge. MOUTH: Mucous membranes moist. Pharynx without erythema or exudate. Uvula midline. Airway patent. Tongue does not deviate. NECK: Supple without nuchal rigidity. No lymphadenopathy. No thyromegaly. Cervical spine is nontender. No JVD. HEART: Regular rate and rhythm LUNGS: Clear to auscultation bilaterally without wheezes, rales or rhonchi. No retractions or accessory muscle use. ABDOMEN: Positive bowel sounds x 4. Normal tympanic percussion. Soft, distended bladder, tender to palpation lower abdomen, without masses or organomegaly. Frye sign negative. No guarding or rebound tenderness. No CVA tenderness MUSCULOSKELETAL: No muscle atrophy, erythema, or edema noted. NEURO: Patient was alert and oriented to person place and time. Normal sensation to light and sharp touch. No focal neurological deficits. Course Administered Medications Discontinued Medications Ertapenem (Ertapenem 1gm Vial) Confirm Administered Dose 100 mg .ROUTE .STK-MED ONE Stop: 02/23/22 01:14 Last Admin: 02/23/22 01:21 Dose: Not Given Documented By: BELA Sodium Chloride (Nss 1000ml) 500 mls @ 999 mls/hr IV .Q31M ONE Stop: 02/22/22 23:03 Last Admin: 02/22/22 22:55 Dose: 999 mls/hr Documented By: ALYSIA Ertapenem (Invanz) 10 mls @ 2 mls/min IV NOW STA Stop: 02/22/22 22:59 Last Admin: 02/23/22 01:20 Dose: 2 mls/min Documented By: BELA Medical Decision Making Medical Records Attestation: I reviewed the patient's medical records. Home Medications Current Medication List: was personally reviewed by me Laboratory Data Attestation: I reviewed the patient's lab results. Result diagrams: 02/22/22 22:53 02/22/22 22:53 Lab Results 02/22/22 02/22/22 02/22/22 Range/Units 22:51 22:53 22:53 WBC 5.49 (4.8-10.8) K/ul RBC 3.84 L (3.93-5.22) M/uL Hgb 11.6 L (12.0-16.0) g/dl Hct 35.1 (34.1-44.9) % MCV 91.4 (80.0-100.0) fL MCH 30.2 (25.0-34.0) pg MCHC 33.0 (32.0-36.0) g/dL RDW Std Deviation 56.4 H (36.4-46.3) fL RDW Coeff of Nancy 16.8 H (11.5-14.5) % Plt Count 251 (130-400) K/uL MPV 10.5 (9.4-12.3) fL Immature Gran % (Auto) 0.2 % Neut % (Auto) 52.1 % Lymph % (Auto) 29.5 % [place] % (Auto) 12.0 % Eos % (Auto) 5.8 % Baso % (Auto) 0.4 % Neut # (Auto) 2.86 (1.4-6.5) K/uL Lymph # (Auto) 1.62 (1.2-3.4) K/uL [place] # (Auto) 0.66 (0.24-0.82) K/uL Eos # (Auto) 0.32 (0-0.50) K/uL Baso # (Auto) 0.02 (0-0.2) K/uL Immature Gran # (Auto) 0.01 (0.00-0.02) K/uL Sodium 139 (136-145) mmol/L Potassium 3.8 (3.5-5.1) mmol/L Chloride 106 (98-107) mmol/L Carbon Dioxide 25 (21-32) mmol/L Anion Gap 8 (3-11) BUN 18 (6-23) mg/dl Creatinine 1.02 (0.6-1.2) mg/dl Est Cr Clr Drug Dosing 33.6 ml/min Est GFR ( Amer) 56.5 ml/min Est GFR (Non-Af Amer) 48.7 ml/min BUN/Creatinine Ratio 17.6 (10-20) Glucose 84 (70-99(Fasting)) mg/dl POC Glucose (70-99) mg/dl Lactate (0.4-2.0) mmol/L Calcium 8.8 (8.5-10.1) mg/dl Magnesium 2.4 (1.7-2.4) mg/dl Total Bilirubin 0.8 (0.2-1.0) mg/dl Direct Bilirubin 0.1 (0-0.2) mg/dl AST 20 (13-39) U/L ALT 16 (7-52) U/L Alkaline Phosphatase 151 H (34-104) U/L Total Creatine Kinase 214 H (26-192) U/L Troponin I High Sens 16.8 H (0-14) pg/ml Total Protein 6.9 D (6.0-8.3) gm/dl Albumin 3.9 (3.4-5.0) gm/dl Procalcitonin (0-0.5) ng/ml Urine Color Dark Yellow Urine Appearance Clear (Clear) Urine pH 7.5 (4.5-7.5) POC Urine pH (4.5-7.5) Ur Specific [place] 1.018 (1.000-1.030) Urine Protein Negative (Negative) POC Urine Protein (Negative) Urine Glucose (UA) Negative (Negative) POC Ur Glucose (UA) (Normal) Urine Ketones Negative (Negative) POC Urine Ketones (Negative) Urine Blood Negative (Negative) POC Urine Blood (Negative) Urine Nitrite Negative (Negative) Urine Bilirubin Negative (Negative) POC Urine Bilirubin (Negative) Urine Urobilinogen Negative (Negative) POC Urine Urobilinogen (Normal) Ur Leukocyte Esterase Trace H (Negative) POC U Leukocyte Esteras (Negative) Urine WBC (Auto) 1-5 (0-5) /hpf Urine RBC (Auto) 0-4 (0-4) /hpf U Hyaline Cast (Auto) 1-5 (0-5) /lpf U Epithel Cells (Auto) 10-20 H (0-5) /lpf Urine Bacteria (Auto) Negative (Negative) SARS-CoV-2 (PCR) (Negative) Influenza Type A (PCR) (Neg) Influenza Type B (PCR) (Neg) RSV (RT-PCR) (Neg) 02/22/22 02/22/22 02/22/22 Range/Units 22:53 22:53 23:11 WBC (4.8-10.8) K/ul RBC (3.93-5.22) M/uL Hgb (12.0-16.0) g/dl Hct (34.1-44.9) % MCV (80.0-100.0) fL MCH (25.0-34.0) pg MCHC (32.0-36.0) g/dL RDW Std Deviation (36.4-46.3) fL RDW Coeff of Nancy (11.5-14.5) % Plt Count (130-400) K/uL MPV (9.4-12.3) fL Immature Gran % (Auto) % Neut % (Auto) % Lymph % (Auto) % [place] % (Auto) % Eos % (Auto) % Baso % (Auto) % Neut # (Auto) (1.4-6.5) K/uL Lymph # (Auto) (1.2-3.4) K/uL [place] # (Auto) (0.24-0.82) K/uL Eos # (Auto) (0-0.50) K/uL Baso # (Auto) (0-0.2) K/uL Immature Gran # (Auto) (0.00-0.02) K/uL Sodium (136-145) mmol/L Potassium (3.5-5.1) mmol/L Chloride (98-107) mmol/L Carbon Dioxide (21-32) mmol/L Anion Gap (3-11) BUN (6-23) mg/dl Creatinine (0.6-1.2) mg/dl Est Cr Clr Drug Dosing ml/min Est GFR ( Amer) ml/min Est GFR (Non-Af Amer) ml/min BUN/Creatinine Ratio (10-20) Glucose (70-99(Fasting)) mg/dl POC Glucose 80 (70-99) mg/dl Lactate 0.8 (0.4-2.0) mmol/L Calcium (8.5-10.1) mg/dl Magnesium (1.7-2.4) mg/dl Total Bilirubin (0.2-1.0) mg/dl Direct Bilirubin (0-0.2) mg/dl AST (13-39) U/L ALT (7-52) U/L Alkaline Phosphatase (34-104) U/L Total Creatine Kinase (26-192) U/L Troponin I High Sens (0-14) pg/ml Total Protein (6.0-8.3) gm/dl Albumin (3.4-5.0) gm/dl Procalcitonin < 0.05 (0-0.5) ng/ml Urine Color Urine Appearance (Clear) Urine pH (4.5-7.5) POC Urine pH (4.5-7.5) Ur Specific [place] (1.000-1.030) Urine Protein (Negative) POC Urine Protein (Negative) Urine Glucose (UA) (Negative) POC Ur Glucose (UA) (Normal) Urine Ketones (Negative) POC Urine Ketones (Negative) Urine Blood (Negative) POC Urine Blood (Negative) Urine Nitrite (Negative) Urine Bilirubin (Negative) POC Urine Bilirubin (Negative) Urine Urobilinogen (Negative) POC Urine Urobilinogen (Normal) Ur Leukocyte Esterase (Negative) POC U Leukocyte Esteras (Negative) Urine WBC (Auto) (0-5) /hpf Urine RBC (Auto) (0-4) /hpf U Hyaline Cast (Auto) (0-5) /lpf U Epithel Cells (Auto) (0-5) /lpf Urine Bacteria (Auto) (Negative) SARS-CoV-2 (PCR) (Negative) Influenza Type A (PCR) (Neg) Influenza Type B (PCR) (Neg) RSV (RT-PCR) (Neg) 02/22/22 02/23/22 Range/Units Unknown Unknown WBC (4.8-10.8) K/ul RBC (3.93-5.22) M/uL Hgb (12.0-16.0) g/dl Hct (34.1-44.9) % MCV (80.0-100.0) fL MCH (25.0-34.0) pg MCHC (32.0-36.0) g/dL RDW Std Deviation (36.4-46.3) fL RDW Coeff of Nancy (11.5-14.5) % Plt Count (130-400) K/uL MPV (9.4-12.3) fL Immature Gran % (Auto) % Neut % (Auto) % Lymph % (Auto) % [place] % (Auto) % Eos % (Auto) % Baso % (Auto) % Neut # (Auto) (1.4-6.5) K/uL Lymph # (Auto) (1.2-3.4) K/uL [place] # (Auto) (0.24-0.82) K/uL Eos # (Auto) (0-0.50) K/uL Baso # (Auto) (0-0.2) K/uL Immature Gran # (Auto) (0.00-0.02) K/uL Sodium (136-145) mmol/L Potassium (3.5-5.1) mmol/L Chloride (98-107) mmol/L Carbon Dioxide (21-32) mmol/L Anion Gap (3-11) BUN (6-23) mg/dl Creatinine (0.6-1.2) mg/dl Est Cr Clr Drug Dosing ml/min Est GFR ( Amer) ml/min Est GFR (Non-Af Amer) ml/min BUN/Creatinine Ratio (10-20) Glucose (70-99(Fasting)) mg/dl POC Glucose (70-99) mg/dl Lactate (0.4-2.0) mmol/L Calcium (8.5-10.1) mg/dl Magnesium (1.7-2.4) mg/dl Total Bilirubin (0.2-1.0) mg/dl Direct Bilirubin (0-0.2) mg/dl AST (13-39) U/L ALT (7-52) U/L Alkaline Phosphatase (34-104) U/L Total Creatine Kinase (26-192) U/L Troponin I High Sens (0-14) pg/ml Total Protein (6.0-8.3) gm/dl Albumin (3.4-5.0) gm/dl Procalcitonin (0-0.5) ng/ml Urine Color Urine Appearance (Clear) Urine pH (4.5-7.5) POC Urine pH 7 (4.5-7.5) Ur Specific [place] (1.000-1.030) Urine Protein (Negative) POC Urine Protein Trace H (Negative) Urine Glucose (UA) (Negative) POC Ur Glucose (UA) Normal (Normal) Urine Ketones (Negative) POC Urine Ketones Negative (Negative) Urine Blood (Negative) POC Urine Blood Negative (Negative) Urine Nitrite (Negative) Urine Bilirubin (Negative) POC Urine Bilirubin 1+ H (Negative) Urine Urobilinogen (Negative) POC Urine Urobilinogen 1 H (Normal) Ur Leukocyte Esterase (Negative) POC U Leukocyte Esteras Trace H (Negative) Urine WBC (Auto) (0-5) /hpf Urine RBC (Auto) (0-4) /hpf U Hyaline Cast (Auto) (0-5) /lpf U Epithel Cells (Auto) (0-5) /lpf Urine Bacteria (Auto) (Negative) SARS-CoV-2 (PCR) NEGATIVE (Negative) Influenza Type A (PCR) Negative (Neg) Influenza Type B (PCR) Negative (Neg) RSV (RT-PCR) Negative (Neg) Imaging Data Attestation: I personally reviewed and interpreted this imaging study as follows: MDM Narrative Prior records/ancillary studies reviewed and summarized above. Nursing notes reviewed. Additional history obtained from family and EMS. The patient's history was concerning for altered mental status. Differential diagnosis: Etiologies such as metabolic, infection, hypoglycemia, electrolyte abnormalities, cardiac sources, intracerebral event, toxicologic, neurologic, as well as others were entertained. Physical examination: As above. ER treatment provided: IV Lock Normal saline hydration An order was placed for continuous cardiac monitoring. The monitor shows a rate of 50-100 with a sinus rhythm. Invanz On reassessment the patients mental status improved. Diagnostics interpretation by me: ECG: Ordered for altered mental status EKG: Poor baseline, left axis, right bundle, rate of 68. Impression normal sinus rhythm with a left axis deviation right bundle branch block interpreted by myself with a poor baseline I think arrhythmia is unlikely. EKG shows no interval abnormalities such as QT prolongation or WPW. There are no findings to suggest Brugada syndrome. Cardiac monitoring in the emergency department reveals no tachycardic or bradycardic dysrhythmia. Hypertrophic cardiomyopathy was considered but there are no clear historical elements pointing toward this. EKG is not suggestive. The QRS voltage is not extremely large and there are no suggestive Q waves. The labs revealed no worrisome leukocytosis. Minimally elevated troponin and repeat was ordered. Negative urine in the lab. Urine dip was concerning for infection and patient was on antibiotics. [address] [place] [address] / Director: Kayode Ortiz M.D. Clinical Laboratory Report Name: MEG LIMON Acct: [id number] Status: DIS IN : 1930 [facility] [place] Date: 01/31/22 Age: 89 Sex: F Dis Date: 02/06/22 Loc: [address]/Bed: W259-1 Spec: [id number] Collected: 01/30/22 Received: 01/30/[address]: RHONDA,ED Copy To: Benigno Veliz M.D. Source: Urine,Clean Catch OV Order: Ordered: Urine Culture Procedure Result Verified Site Urine Culture Final 02/02/22 Organism 1 Escherichia coli ESBL [place] Count >100,000 CFU/ml Sens Sensitivities to Follow ESBL E col RX M.I.C. --- --------- Amox/Clav S <=8/4 Ampicillin R >16 Amp/Sul I 16/8 Cefazolin R >16 Cefepime I 8 Cefotaxime R >16 Ceftriaxone R >2 Ciprofloxacin R >2 Ertapenem S <=0.5 Gentamicin S <=4 Levofloxacin R >4 Meropenem S <=1 Nitrofurantoin S <=32 Tobramycin S <=4 Trimeth/Sulfa R >2/38 Pip/Tazo S <=16 Escherichia coli ESBL: Negative/Urine Combo 90 Cefepime result is shown as I-Intermediate According to CLSI the interpretation should be SDD Susceptible-dose dependent. S = SENSITIVE I = INTERMEDIATE R = RESISTANT Imaging studies: Chest x-ray with no acute consolidation, pneumothorax or free air per my interp retation Preliminary Findings Only See Final Report For Complete Findings CT ABDOMEN & PELVIS Without Contrast: Comparison: 01/30/2022 No urolithiasis or obstructive uropathy. Canas catheter is present within a nondistended bladder. Moderate size hiatal hernia. Sigmoid diverticulosis without evidence of diverticulitis. No evidence of appendicitis. Mild hepatomegaly. 1 cm hypodensity in the right hepatic lobe is incompletely evaluated on this examination. Progressed height loss of T12 compression fracture with new 3 mm retropulsion. T9 superior endplate compression fracture without retropulsion. Subacute or chronic nondisplaced right L3 transverse process fracture. Grade 1 degenerative anterolisthesis at L3-L4. Bibasilar dependent lung opacities. Radiologist: Marissa Salgado MD Given the above diagnostic work-up and treatment, this episode appears to be consistent with Urinary retention, Elevated troponin and compression fractures. Patient was not complaining of any back pain. Canas was placed and patient was feeling better. Troponin was elevated. Repeat was ordered.. No signs of ischemia on EKG. Further treatment will be required.Advanced imaging and labs were ordered due to patient's presentation. This was all reviewed. Consultation: A consultation was placed with the hospitalist. The case was discussed and janie gnostics were reviewed. The patient was evaluated in the ER for further treatment. The chart was completed utilizing [employer] Speech voice recognition software. Grammatical errors, random word insertions, pronoun errors, and incomplete sentences are an occassional consequence of this system due to software limitations, ambient noise, and hardware issues. Any formal questions or concerns about the content, text, or information contained within the body of this dictation should be directly addressed to the physician psychology assistant for clarification. Impression & Plan Acute urinary retention, Elevated troponin, Weakness, T12 compression fracture Discharge Plan Visit Data Chief Complaint: Altered Mental Status Stated Complaint: AMS ED Provider: Jasmin Mock ED Midlevel Provider: Shantal Fournier Discharge Problem: Acute urinary retention, Elevated troponin, Weakness, T12 compression fracture Patient Disposition: Admitted As Inpatient Condition: Fair Forms Stand Alone Forms: [employer] Prescriptions Prescriptions: No Action Ajovy Syringe 225 mg/1.5 mL syringe 225 mg SUBCUT MONTHLY Rx Instructions: administer on Friday of every month @ 1300 ascorbic acid (vitamin C) [Vitamin C] 500 mg Tablet 500 mg PO DAILY escitalopram oxalate 20 mg tablet 20 mg PO QAM esomeprazole magnesium 40 mg capsule,delayed release(DR/EC) 40 mg PO DAILYBB fluticasone propionate [Flovent HFA] 220 mcg/actuation HFA aerosol inhaler 2 inh INHALATION BID Rx Instructions: 2 puffs into lungs 2 times a day gabapentin 100 mg capsule 200 mg PO BID levocetirizine 5 mg tablet 5 mg PO BID Linzess 145 mcg capsule 145 mcg PO DAILY mirtazapine [Remeron] 15 mg Tablet 7.5 mg PO HS Rx Instructions: take 1/2 tablet by mouth at bedtime multivitamin Tablet 1 tab PO DAILY hydroxyzine HCl 10 mg tablet 10 mg PO QAM PRN (Reason: Itching) hydroxyzine HCl 25 mg tablet 25 mg PO HS PRN (Reason: Itching) Excedrin Extra Strength 250-250-65 mg Tablet 1 tab PO Q6H MDD 4 doses PRN (Reason: Pain) Rx Instructions: do not exceed for doses in 24 hours Senna Plus 8.6-50 mg Capsule 2 tab-cap PO HS PRN (Reason: Constipation) Rx Instructions: take 2 tabs (17.2/100 mg) by mouth at bedtime for constipation betamethasone valerate 0.1 % ointment 1 applic TOPICAL BID PRN (Reason: dermatitis) quetiapine [Seroquel XR] 50 mg Tablet Extended Release 24 Hr 100 mg PO BID Rx Instructions: take 2 tablets by mouth twice a day rosuvastatin [Crestor] 5 mg Tablet 5 mg PO HS tamsulosin [Flomax] 0.4 mg Capsule 0.8 mg PO HS Rx Instructions: 2 capsule dose topiramate [Topamax] 50 mg Tablet 50 mg PO BID Xiidra 5 % dropperette 1 drp OPB BID acetaminophen [Tylenol] 325 mg Tablet 650 mg PO Q4 MDD 3g PRN (Reason: Fever Or Pain) Rx Instructions: use for temperature > 100f or mild pain Combivent Respimat 20-100 mcg/actuation Mist 1 puff INHALATION .Q 6 HRS WHILE AWAKE megestrol 400 mg/10 mL (40 mg/mL) suspension 400 mg PO DAILY Rx Instructions: take 10 ml dose PreserVision AREDS-2 250-90-40-1 mg Capsule 1 tab PO DAILY tramadol 50 mg tablet 50 mg PO BID Isatu-Bid 1 cap PO BID Aveeno Daily Moisturizing 1.2 % Lotion 1 ea TOPICAL BID Rx Instructions: apply to areas on back for itching ketorolac 10 mg Tablet 10 mg PO Q6H PRN (Reason: Migraine Headache) Rx Instructions: do not take with migraine relief medications Artificial Tears (PF) Dropperette 1 drp OPB QID PRN (Reason: Dry Eye(S)) hydrocortisone 1 % Cream 1 applic TOPICAL TID PRN (Reason: itchiness) triamcinolone acetonide 0.1 % Ointment 1 applic TOPICAL BID PRN (Reason: bursitis) melatonin 3 mg Tablet 3 mg PO HS ciprofloxacin HCl 250 mg tablet 250 mg PO DAILY levothyroxine 75 mcg Tablet 75 mcg PO DAILYBB ondansetron [Zofran ODT] 4 mg Tablet,Disintegrating 4 mg translingual Q8H PRN (Reason: NAUSEA/VOMITING) Effer-K 25 mEq Tablet, Effervescent 25 meq PO BIDM Cetaphil Gentle Cleanser Cleanser 1 applic TOPICAL BID [facility]errals [facility] -
[2022-02-22 23:10] LABS: Basophils # (auto) 0.02 K/uL (0-0.2); Basophils % (auto) 0.4 %; Eosinophils # (auto) 0.32 K/uL (0-0.50); Eosinophils % (auto) 5.8 %; Hematocrit (blood only) 35.1 % (34.1-44.9); Hemoglobin 11.6 g/dl (12.0-16.0); Immature Granulocytes # (auto) 0.01 K/uL (0.00-0.02); Immature Granulocytes % (auto) 0.2 %; Lymphocytes # (auto) 1.62 K/uL (1.2-3.4); Lymphocytes % (auto) 29.5 %; Mean Corpuscular Hemoglobin 30.2 pg (25.0-34.0); Mean Corpuscular Volume 91.4 fL (80.0-100.0); Mean Platelet Volume 10.5 fL (9.4-12.3); Monocytes # (auto) 0.66 K/uL (0.24-0.82); Neutrophils # (auto) 2.86 K/uL (1.4-6.5); Neutrophils % (auto) 52.1 %; Platelet Count 251 K/uL (130-400); RDW Coefficient of Variation 16.8 % (11.5-14.5); RDW Standard Deviation 56.4 fL (36.4-46.3); Red Blood Count 3.84 M/uL (3.93-5.22); White Blood Count 5.49 K/ul (4.8-10.8)
[2022-02-22 23:14] LABS: Appearance Urine Clear (Clear); Bacteria Urine Automated Negative (Negative); Bilirubin Urine Negative (Negative); Blood Urine Negative (Negative); Color Urine Dark Yellow; Glucose Urine UA Negative (Negative); Ketones Urine Negative (Negative); Leukocyte Esterase Urine Trace (Negative); Nitrite Urine Negative (Negative); Protein Urine Negative (Negative); RBC Urine Automated 0-4 /hpf (0-4); Specific Gravity Urine 1.018 (1.000-1.030); Urobilinogen Urine Negative (Negative); pH Urine 7.5 (4.5-7.5)
[2022-02-23 00:49] LABS: Albumin Level 3.9 gm/dl (3.4-5.0); BUN Creatinine Ratio 17.6 (10-20); Bilirubin Direct 0.1 mg/dl (0-0.2); Bilirubin,Total 0.8 mg/dl (0.2-1.0); Calcium 8.8 mg/dl (8.5-10.1); Creatinine Clr Calc Pharmacy 33.6 ml/min; Est GFR (African American) 56.5 ml/min; Est GFR (Non-African American) 48.7 ml/min; Magnesium 2.4 mg/dl (1.7-2.4); Potassium 3.8 mmol/L (3.5-5.1); Total Protein 6.9 gm/dl (6.0-8.3); Troponin I High Sensitivity 16.8 pg/ml (0-14)
[2022-02-23 01:10] LABS: Influenza A virus by PCR Negative (Neg); Influenza B virus by PCR Negative (Neg); RSV by PCR Negative (Neg); SARS CoV2 RNA(COVID-19) Ceph NEGATIVE (Negative)
[2022-02-23] MEDS ORDERED: ERTAPENEM 1 GM ONE (01:13)
[2022-02-23 01:16] LABS: POC Urine Bilirubin 1+ (Negative); POC Urine Blood Negative (Negative); POC Urine Glucose Normal (Normal); POC Urine Ketones Negative (Negative); POC Urine Leukocytes Trace (Negative); POC Urine Protein Trace (Negative); POC Urine Urobilinogen 1 (Normal); POC Urine pH 7 (4.5-7.5)
[2022-02-23] MEDS ORDERED: NITROGLYCERIN SL 0.4 MG/TAB TAB SL PRN (04:56)
[2022-02-23] MEDS ORDERED: IPRATROPIUM BROMIDE/ALBUTEROL respimat INH INH SCH (04:56)
[2022-02-23] MEDS ORDERED: hydrOXYzine HCl 10 MG TAB PO PRN (04:56)
[2022-02-23] MEDS ORDERED: ACETAMINOPHEN 325 MG TAB PO PRN (04:56)
[2022-02-23] MEDS ORDERED: ONDANSETRON INJ 2 MG/ML 2 ML VIAL IV PRN (04:56)
[2022-02-23] MEDS ORDERED: hydrOXYzine HCl 25 MG TAB PO PRN (04:56)
[2022-02-23] MEDS ORDERED: BETAMETHASONE VAL 0.1% OINT 15 GM TUBE EXT PRN (04:56)
[2022-02-23] MEDS ORDERED: POLYETHYLENE (MIRALAX) 17 GM PACK PO PRN (04:56)
[2022-02-23] MEDS: SODIUM CHLORIDE 0.9% 1000ML 1,000 ML IV SCH ×2 (05:11→16:18)
[2022-02-23] MEDS ORDERED: HYDROCORTISONE 1% CRM 30 GM TUBE EXT PRN (05:59)
[2022-02-23] MEDS ORDERED: ARTIFICIAL TEARS OP PRN (06:04)
[2022-02-23] MEDS ORDERED: DOCUSATE SODIUM/SENNA 50/8.6MG TAB PO PRN (06:11)
--- NOTE | 2022-02-23 06:55 | History and Physical Report ---
DATE OF ADMISSION: 02/23/2022. CHIEF COMPLAINT: Altered mental status. HISTORY OF PRESENT ILLNESS: This is an 89-year-old female, living at [facility] with history of COPD, history of TIA, hyperlipidemia, hypothyroidism, history of recurrent UTIs, history of ESBL organisms on chronic ciprofloxacin suppression treatment, history of overactive bladder as per records, GERD, hypothyroidism, mood disorder, mild dementia, she moved locally from [place], [place], last October 2021 to be close to her son, who lives locally. The patient was seen recently in the hospital, admitted on 01/31/2022 and discharged on 02/06/2022. She was treated for acute UTI, recurrent ESBL. She was treated with ertapenem, completed 14 days of ertapenem on 02/15/2022 and during hospitalization, she also had acute respiratory failure. She requires 2 liters at baseline. She was treated with nebs prednisone, respiratory improved and she also found to have new T12 compression fractures, nondisplaced sternal fracture because of multiple falls, ambulatory dysfunction. She was discharged to [facility]. She stayed in [facility] for 1 week and as per son, she was back to alf about a week ago. As per son, since she got UTI, she has on and off confusion, the confusion not improved, but later progressively getting worsened. She had low-grade fever at alf. That is the reason she was brought in here. When she came to the ER, she was alert and oriented as per nursing staff, , but now she is sleeping, not able to answer any questions, tried to wake her up but , not answering, not opening her eyes.. Son said that she was on and off confused while he was in the ER with the patient. As per son, he does not note that she has any nausea, vomiting or diarrhea. She complains of back pain. Her appetite is down. She is on regular diet, ambulates with a walker. Could not get much history currently. ALLERGIES: TO AMITRIPTYLINE, CELECOXIB, CELEBREX, CYCLOBENZAPRINE, DEPAKOTE, IODINE, SCOPOLAMINE, TEGASEROD, ZOLPIDEM. PAST MEDICAL HISTORY: As mentioned above. PAST SURGICAL HISTORY: Neck surgeries, ARISTEO. FAMILY HISTORY: Significant for heart disease, diabetes, and stroke. SOCIAL HISTORY: Nonsmoker. No alcohol use. She is a retired infection control nurse. [facility] MEDICATIONS: The patient is on Tylenol 650 mg p.o. q. 4 hours p.r.n., Ajovy syringe 225 mg subcutaneous monthly, artificial tears p.r.n., vitamin C 500 mg p.o. daily, Avino daily, betamethasone topical b.i.d., betamethasone topical b.i.d. p.r.n., ciprofloxacin 250 mg p.o. daily, Combivent Respimat 1 puff inhalation q. 6 hours while awake, Lexapro 20 mg p.o. daily, esomeprazole 40 mg p.o. daily, Excedrin Extra Strength 1 tablet p.o. q. 6 hours p.r.n., Flovent 2 inhalation b.i.d., gabapentin 200 mg p.o. b.i.d., hydrocortisone t.i.d. p.r.n. for itchiness, hydroxyzine 25 mg p.o. at bedtime p.r.n. for itching, hydroxyzine 10 mg p.o. a.m. p.r.n. for itching, ketorolac 10 mg p.o. q. 6 hours p.r.n. for migraines, levocetirizine 5 mg p.o. b.i.d., levothyroxine 75 mcg p.o. daily, Linzess 145 mcg p.o. daily, megestrol 400mg p.o. daily, melatonin 3 mg p.o. at bedtime, Remeron 7.5 mg p.o. at bedtime, multivitamin 1 tablet p.o. daily, Zofran p.r.n., potassium bicarbonate citric acid 25 mEq p.o. b.i.d., PreserVision AREDS 1 tablet p.o. daily, Seroquel 100 mg p.o. b.i.d., Crestor 5 mg p.o. at bedtime, senna 2 tablets p.o. at bedtime p.r.n., Flomax 0.8 mg p.o. at bedtime, Topamax 50 mg p.o. b.i.d., tramadol 50 mg p.o. b.i.d., xiidra one drop ophthalmic b.i.d., triamcinolone p.r.n. REVIEW OF SYSTEMS: Unobtainable at this time. PHYSICAL EXAMINATION: GENERAL: The patient is old and frail, currently very drowsy, difficult to arouse. VITAL SIGNS: Temperature 36.7, pulse 70, respiratory rate 19, blood pressure 97/51, oxygen 94% on nasal cannula. HEENT: Pupils equal, could not examine the pupils. No obvious facial droop seen. NECK: No obvious neck masses seen. CARDIOVASCULAR: S1 and S2 heard. Regular rate and rhythm. No murmur, no gallop. RESPIRATORY SYSTEM: Normal AP diameter. No accessory muscle use. No wheezing, no crackles. ABDOMEN: Soft, bowel sounds present, nontender, no distention. CENTRAL NERVOUS SYSTEM: Very drowsy. Moves extremities on touch stimuli, not opening eyes and not answering any questions. EXTREMITIES: No edema, no erythema. LABORATORY DATA: WBC 5.4, hemoglobin 11.6, hematocrit 35.1, platelets 251. Sodium 139, potassium 3.8, chloride 106, CO2 25, BUN 18, creatinine 1.02, serum glucose 84, lactate 0.8, calcium 8.8, magnesium 2.4, total bilirubin 0.8, direct bilirubin 0.1, AST 20, ALT 16, alkaline phosphatase 151. Total creatinine kinase 214. Troponin I high sensitivity 16.8. Procalcitonin less than 0.05. Urinalysis, trace leukocyte esterase. SARS-CoV-2 PCR negative. Influenza A, B PCR negative. RSV PCR negative. IMAGING DATA: CT of the abdomen and pelvis preliminary report, no acute findings. chronic nondisplaced L3 transverse process fracture. Chest x-ray, no acute findings. EKG: Poor quality interpretation, adversely affected, ventricular rate of 68, left axis deviation, right bundle-branch block. ASSESSMENT AND PLAN: This is an 89-year-old female who presents with altered mental status. 1. Altered mental status: Recently treated for ESBL UTI with Invanz 14 days completed on 02/15/2022, history of recurrent UTIs, on ciprofloxacin suppression therapy, UA slightly positive Er started on invanz which will be continued, hold ciprofloxacin for now. Follow the cultures. IV fluids. Closely monitor in med tele. Follow cultures.Currently, the patient is very drowsy. As per nursing staff earlier she was alert and oriented. As per son, she is on and off confusion since last 1 month, but lately getting worse. We will monitor in the hospital for further response.(Cipro causing confusion?) 2. History of chronic obstructive pulmonary disease, chronic respiratory failure: On 2 liters. Continue her home inhalers. 3. History of compression fracture: Back pain as per son, pain control. PT, OT when stable. 4. Hypothyroidism: On Synthroid. Follow the thyroid profile. 5. Anemia of chronic kidney disease: We will follow the labs. 6. Gastroesophageal reflux disease: On PPI. 7. History of transient ischemic attack.ON statin. 8. History of hyperlipidemia: On statin. 9. Depression. On Remeron and Lexapro. 10. Mild dementia. Monitor for any delirium. The patient is on Seroquel. 11.Abnormal ekg.wide rhythm. Prolonged qt. Will follow repeat ekg. holding Lexapro for now.Avoid qt prolonging drugs. 12. Deep venous thrombosis prophylaxis: Heparin subcutaneously. DISPOSITION: Closely monitor in the med tele. PT/OT prior to discharge. Social service to help with discharge planning. Diacharge back to [facility] when stable. CODE STATUS: DNR/DNI as per discussion with the son. Job ID: [id number] [facility]
[2022-02-23] MEDS: PANTOprazole 40 MG TAB PO SCH (07:07)
[2022-02-23] MEDS: LEVOTHYROXINE SODIUM 75 MCG TABLET PO SCH (07:07)
[2022-02-23 07:35] LABS: Basophils # (auto) 0.02 K/uL (0-0.2); Basophils % (auto) 0.4 %; Eosinophils # (auto) 0.32 K/uL (0-0.50); Eosinophils % (auto) 6.6 %; Hematocrit (blood only) 32.6 % (34.1-44.9); Hemoglobin 10.7 g/dl (12.0-16.0); Immature Granulocytes # (auto) 0.03 K/uL (0.00-0.02); Immature Granulocytes % (auto) 0.6 %; Lymphocytes # (auto) 1.44 K/uL (1.2-3.4); Lymphocytes % (auto) 29.5 %; Mean Corpuscular Hemoglobin 30.1 pg (25.0-34.0); Mean Corpuscular Hgb Conc 32.8 g/dL (32.0-36.0); Mean Corpuscular Volume 91.8 fL (80.0-100.0); Mean Platelet Volume 10.5 fL (9.4-12.3); Monocytes # (auto) 0.62 K/uL (0.24-0.82); Monocytes % (auto) 12.7 %; Neutrophils # (auto) 2.45 K/uL (1.4-6.5); Neutrophils % (auto) 50.2 %; Platelet Count 232 K/uL (130-400); RDW Coefficient of Variation 16.8 % (11.5-14.5); RDW Standard Deviation 56.8 fL (36.4-46.3); Red Blood Count 3.55 M/uL (3.93-5.22); White Blood Count 4.88 K/ul (4.8-10.8)
[2022-02-23] MEDS ORDERED: POTASSIUM BICARBONATE PO SCH (08:00)
[2022-02-23] MEDS ORDERED: CITRIC ACID PO SCH (08:00)
[2022-02-23] MEDS ORDERED: [UNRECOGNIZED DRUG - OTHER] PO SCH (08:00)
[2022-02-23 08:02] LABS: BUN Creatinine Ratio 16.3 (10-20); Calcium 8.1 mg/dl (8.5-10.1); Creatinine Clr Calc Pharmacy 37.3 ml/min; Est GFR (Non-African American) 55.2 ml/min; Magnesium 2.2 mg/dl (1.7-2.4)
--- NOTE | 2022-02-23 08:48 | XRay Report ---
XR chest 1V portable HISTORY: Sepsis COMPARISON: Chest 01/30/2022. FINDINGS: No pneumothorax. No pleural effusions. Right subdiaphragmatic lucency is consistent with in terposed colon. A few bibasilar densities noted which are similar to the prior study. This favors ate lectasis. No evidence for pulmonary edema. The heart remains mildly enlarged. IMPRESSION: A few bibasilar linear densities which are nonspecific but favor atelectasis. ACT 112: Negative or not required by law. Electronically signed by: Barak Miller M.D. 02/23/2022 8:46 AM
[2022-02-23] MEDS: ASCORBIC ACID 500 MG TAB PO SCH ×2 (08:49→09:10)
[2022-02-23] MEDS: GABAPENTIN 100 MG CAP PO SCH ×2 (08:49→21:21)
[2022-02-23] MEDS: FLUTICASONE FUROATE 200MCG 14 PUFFS/INHALER INH SCH ×2 (08:49→21:23)
[2022-02-23] MEDS: LINACLOTIDE 145 MCG CAPSULE PO SCH ×2 (08:49→09:10)
[2022-02-23] MEDS: MEGESTROL ACETATE SUSP 400 MG/10 ML UDC PO SCH ×2 (08:50→09:10)
[2022-02-23] MEDS: MULTIVITAMIN TAB PO SCH ×2 (08:50→09:10)
[2022-02-23] MEDS: TOPIRAMATE 50 MG TAB PO SCH ×2 (08:50→21:22)
[2022-02-23] MEDS: HEPARIN SOD 5,000 UNIT/0.5 ML VIAL SQ SCH ×2 (08:50→21:23)
[2022-02-23] MEDS: CEROVITE ADV FORMULA TAB PO SCH ×2 (08:51→09:10)
--- NOTE | 2022-02-23 08:59 | CT Scan Report ---
CT abd pelvis wo con CLINICAL HISTORY: abd pain, uti TECHNIQUE: Helical axial images of the abdomen and pelvis were obtained. Automated dose lowering tech niques and/or adjustment according to patient size were utilized for this exam. This exam was perfor med without intravenous contrast. CT DOSE: 446.38 mGy.cm COMPARISON: Comparison is made to CT abdomen pelvis 01/30/2022 FINDINGS: Lower chest: Bibasilar atelectasis versus scarring is seen. Liver: Subcentimeter hypodensities in the liver are too small to characterize. Gallbladder and biliary tree: No calcified gallstones. Normal caliber wall. No intra- or extrahepatic biliary ductal dilation. Pancreas: Unremarkable, no focal lesions. Spleen: Unremarkable. Adrenals: Unremarkable. Kidneys and ureters: Unremarkable. Bladder: Canas catheter is seen. Reproductive organs: Unremarkable. Bowel: Diverticulosis is seen without evidence of diverticulitis. A moderate hiatal hernia is seen. Lymph nodes Retroperitoneal: Unremarkable. Pelvic: Unremarkable. Mesenteric: Unremarkable. Peritoneum: Normal. Vessels: Atherosclerotic calcifications are seen. Abdominal wall: Unremarkable. Bones: Compared to the prior exam, there is interval increase in the T12 compression fracture. There is new 3 mm retropulsion. Partially visualized is a T9 compression deformity with no significant retr opulsion seen.3 right L3 transverse process fracture appears unchanged from prior exam, likely chroni c. Degenerative changes are seen. IMPRESSION: 1. No urolithiasis or obstructive uropathy is seen. Diverticulosis without diverticulitis. There is interval T12 vertebral fracture which is increased from prior exam, age-indeterminate but favored to be acute to subacute. Correlation with point tenderness is recommended. 2. Diverticulosis without diverticulitis. 3. Additional findings as above. ACT 112: Negative or not required by law. Electronically signed by: Maurice Day M.D. 02/23/2022 8:57 AM
[2022-02-23] MEDS ORDERED: ESCITALOPRAM OXALATE 20 MG TAB PO SCH (09:00)
[2022-02-23] MEDS: traMADol HCL 50 MG TABLET PO SCH ×2 (09:07→21:21)
[2022-02-23] MEDS: QUEtiapine FUMARATE 50 MG TABCR PO SCH ×2 (09:07→21:21)
[2022-02-23] MEDS: CETIRIZINE HCL 10 MG TABLET PO SCH ×2 (09:07→21:22)
--- NOTE | 2022-02-23 10:57 | Electrocardiogram Report ---
Test Reason : Blood Pressure : / mmHG Vent. Rate : 068 BPM Atrial Rate : 234 BPM P-R Int : 000 ms QRS Dur : 136 ms QT Int : 476 ms P-R-T Axes : 000 -41 -01 degrees QTc Int : 506 ms Poor data quality, interpretation may be adversely affected Probably NSR Left axis deviation Right bundle branch block Abnormal ECG When compared with ECG of 30-JAN-2022 22:18, No significant change was found Confirmed by Edward Christopher ([id number]) on 02/23/2022 10:57:29 AM Referred By: REFERRED SELF Confirmed By:Edward Christopher
[2022-02-23] MEDS: Albuterol HFA 8 GM Inhaler (Combivent Respimat P&T Subs) INH SCH ×3 (11:22→19:10)
[2022-02-23] MEDS: Ipratropium HFA Inhaler (Combivent Respimat P&T Subs) INH SCH ×3 (11:23→19:10)
--- NOTE | 2022-02-23 12:16 | Hospitalist Progress Note ---
Date of Service February 23, 2022 Assessment & Plan (1) Confusion: Plan: - unclear etiology, appears to be progressive - UA mostly negative but is on chronic cipro suppression therapy - urine in ellis appears cloudy with debris - started on ertapenem for history of ESBL UTIs - will continue - blood cultures pending - mental status appears to be improving and will continue to monitor for improvement - given history, age, recurrent UTIs, and frailty - will consult Palliative care for further GOC discussion - PT/OT this admission (2) COPD (chronic obstructive pulmonary disease): Plan: - on home O2 2L NC at baseline - not in exacerbation at this time - continue home meds (3) Hypothyroidism: Plan: - continue home medication (4) Anemia: Plan: - stable, no signs of bleeding - will monitor for now (5) GERD (gastroesophageal reflux disease): Plan: - continue PPI (6) History of TIA (transient ischemic attack): Plan: - continue statin (7) HLD (hyperlipidemia): Plan: - continue statin (8) Depression: Plan: - continue Remeron and Lexapro Plan DVT ppx: heparin SC Code Status: DNR/DNI Dispo: telemetry Pedro Baez MD [facility] Medicine Admission and Anticipated Discharge Date Admission Date: February 23, 2022 Subjective Patient with COPD on 2L home O2 by NC, h/o TIA, HLD, hypothyroidism, h/o recurrent ESBL UTIs, GERD, mild dementia presented with confusion, lethargy, thoguht to be sespsi related to UTI. UA negative for infection, blood cultures drawn, started on ertapenem. Patient sleepy this morning but wakens and answers questions appropriately except did not know where she was. Ate some of her breakfast (fruit) when encouraged. Denied chest pain, shortness of breath, n/v/d, abdominal pain, dysuria. Review of Systems Review of Systems: All systems reviewed & are unremarkable except as noted in Subjective Physical Exam Physical Exam: GENERAL: The patient is old and frail, sleepy but arousable HEENT: Pupils equal, could not examine the pupils. No obvious facial droop seen. NECK: No obvious neck masses seen. CARDIOVASCULAR: S1 and S2 heard. Regular rate and rhythm. No murmur, no gallop. RESPIRATORY SYSTEM: Normal AP diameter. No accessory muscle use. No wheezing, no crackles. ABDOMEN: Soft, bowel sounds present, nontender, no distention. CENTRAL NERVOUS SYSTEM: sleepy but wakens to verbal stimuli. Moves extremities spontaneously, answering questions mostly appropriately, did not know where she was exactly EXTREMITIES: No edema, no erythema. Results & Data Results & Data ([facility]) Vital Signs (Past 12 Hours) Vital Signs Temp Pulse Pulse Resp BP BP Pulse Ox 02/23/22 11:34 02/23/22 11:00 36.8 C 74 18 117/60 93 02/23/22 06:42 36.5 C 80 18 129/65 93 02/23/22 05:00 02/23/22 04:56 75 02/23/22 04:56 02/23/22 04:56 93 02/23/22 05:03 36.1 C L 85 20 147/68 H 88 L 02/23/22 03:00 96/53 L 93 02/23/22 02:30 118/71 95 02/23/22 02:00 97/51 L 94 02/23/22 01:30 108/54 L 95 02/23/22 01:00 92/48 L 93 Pulse Ox O2 Del Method O2 Del Method O2 Flow Rate O2 Flow Rate 02/23/22 11:34 Nasal Cannula 2 02/23/22 11:00 Nasal Cannula 3 02/23/22 06:42 Nasal Cannula 2 02/23/22 05:00 Nasal Cannula 3 02/23/22 04:56 02/23/22 04:56 93 Nasal Cannula 3 02/23/22 04:56 Nasal Cannula 3 02/23/22 05:03 Room Air 02/23/22 03:00 02/23/22 02:30 02/23/22 02:00 02/23/22 01:30 02/23/22 01:00 Diagnostic Findings Laboratory Results WBC 4.88 K/ul (4.8-10.8) 02/23/22 06:35 RBC 3.55 M/uL (3.93-5.22) L 02/23/22 06:35 Hgb 10.7 g/dl (12.0-16.0) L 02/23/22 06:35 Hct 32.6 % (34.1-44.9) L 02/23/22 06:35 MCV 91.8 fL (80.0-100.0) 02/23/22 06:35 MCH 30.1 pg (25.0-34.0) 02/23/22 06:35 MCHC 32.8 g/dL (32.0-36.0) 02/23/22 06:35 RDW Std Deviation 56.8 fL (36.4-46.3) H 02/23/22 06:35 RDW Coeff of Nancy 16.8 % (11.5-14.5) H 02/23/22 06:35 Plt Count 232 K/uL (130-400) 02/23/22 06:35 MPV 10.5 fL (9.4-12.3) 02/23/22 06:35 Immature Gran % (Auto) 0.6 % 02/23/22 06:35 Neut % (Auto) 50.2 % 02/23/22 06:35 Lymph % (Auto) 29.5 % 02/23/22 06:35 [place] % (Auto) 12.7 % 02/23/22 06:35 Eos % (Auto) 6.6 % 02/23/22 06:35 Baso % (Auto) 0.4 % 02/23/22 06:35 Neut # (Auto) 2.45 K/uL (1.4-6.5) 02/23/22 06:35 Lymph # (Auto) 1.44 K/uL (1.2-3.4) 02/23/22 06:35 [place] # (Auto) 0.62 K/uL (0.24-0.82) 02/23/22 06:35 Eos # (Auto) 0.32 K/uL (0-0.50) 02/23/22 06:35 Baso # (Auto) 0.02 K/uL (0-0.2) 02/23/22 06:35 Immature Gran # (Auto) 0.03 K/uL (0.00-0.02) H 02/23/22 06:35 Sodium 142 mmol/L (136-145) 02/23/22 06:35 Potassium 4.0 mmol/L (3.5-5.1) 02/23/22 06:35 Chloride 111 mmol/L (98-107) H 02/23/22 06:35 Carbon Dioxide 24 mmol/L (21-32) 02/23/22 06:35 Anion Gap 7 (3-11) 02/23/22 06:35 BUN 15 mg/dl (6-23) 02/23/22 06:35 Creatinine 0.92 mg/dl (0.6-1.2) 02/23/22 06:35 Est Cr Clr Drug Dosing 37.3 ml/min 02/23/22 06:35 Est GFR ( Amer) 64.0 ml/min 02/23/22 06:35 Est GFR (Non-Af Amer) 55.2 ml/min 02/23/22 06:35 BUN/Creatinine Ratio 16.3 (10-20) 02/23/22 06:35 Glucose 75 mg/dl (70-99(Fasting)) 02/23/22 06:35 POC Glucose 89 mg/dl (70-99) 02/23/22 11:22 Lactate 0.8 mmol/L (0.4-2.0) 02/22/22 22:53 Calcium 8.1 mg/dl (8.5-10.1) L 02/23/22 06:35 Magnesium 2.2 mg/dl (1.7-2.4) 02/23/22 06:35 Total Bilirubin 0.8 mg/dl (0.2-1.0) 02/22/22 22:53 Direct Bilirubin 0.1 mg/dl (0-0.2) 02/22/22 22:53 AST 20 U/L (13-39) 02/22/22 22:53 ALT 16 U/L (7-52) 02/22/22 22:53 Alkaline Phosphatase 151 U/L (34-104) H 02/22/22 22:53 Total Creatine Kinase 214 U/L (26-192) H 02/22/22 22:53 Troponin I High Sens 14.0 pg/ml (0-14) 02/23/22 02:39 Total Protein 6.9 gm/dl (6.0-8.3) D 02/22/22 22:53 Albumin 3.9 gm/dl (3.4-5.0) 02/22/22 22:53 Procalcitonin < 0.05 ng/ml (0-0.5) 02/22/22 22:53 Urine Color Dark Yellow 02/22/22 22:51 Urine Appearance Clear (Clear) 02/22/22 22:51 Urine pH 7.5 (4.5-7.5) 02/22/22 22:51 POC Urine pH 7 (4.5-7.5) 02/22/22 Unknown Ur Specific [place] 1.018 (1.000-1.030) 02/22/22 22:51 Urine Protein Negative (Negative) 02/22/22 22:51 POC Urine Protein Trace (Negative) H 02/22/22 Unknown Urine Glucose (UA) Negative (Negative) 02/22/22 22:51 POC Ur Glucose (UA) Normal (Normal) 02/22/22 Unknown Urine Ketones Negative (Negative) 02/22/22 22:51 POC Urine Ketones Negative (Negative) 02/22/22 Unknown Urine Blood Negative (Negative) 02/22/22 22:51 POC Urine Blood Negative (Negative) 02/22/22 Unknown Urine Nitrite Negative (Negative) 02/22/22 22:51 Urine Bilirubin Negative (Negative) 02/22/22 22:51 POC Urine Bilirubin 1+ (Negative) H 02/22/22 Unknown Urine Urobilinogen Negative (Negative) 02/22/22 22:51 POC Urine Urobilinogen 1 (Normal) H 02/22/22 Unknown Ur Leukocyte Esterase Trace (Negative) H 02/22/22 22:51 POC U Leukocyte Esteras Trace (Negative) H 02/22/22 Unknown Urine WBC (Auto) 1-5 /hpf (0-5) 02/22/22 22:51 Urine RBC (Auto) 0-4 /hpf (0-4) 02/22/22 22:51 U Hyaline Cast (Auto) 1-5 /lpf (0-5) 02/22/22 22:51 U Epithel Cells (Auto) 10-20 /lpf (0-5) H 02/22/22 22:51 Urine Bacteria (Auto) Negative (Negative) 02/22/22 22:51 SARS-CoV-2 (PCR) NEGATIVE (Negative) 02/23/22 Unknown Influenza Type A (PCR) Negative (Neg) 02/23/22 Unknown Influenza Type B (PCR) Negative (Neg) 02/23/22 Unknown RSV (RT-PCR) Negative (Neg) 02/23/22 Unknown Impressions Chest X-Ray 02/22/22 22:32 XR chest 1V portable HISTORY: Sepsis COMPARISON: Chest 01/30/2022. FINDINGS: No pneumothorax. No pleural effusions. Right subdiaphragmatic lucency is consistent with interposed colon. A few bibasilar densities noted which are similar to the prior study. This favors atelectasis. No evidence for pulmonary edema. The heart remains mildly enlarged. IMPRESSION: A few bibasilar linear densities which are nonspecific but favor atelectasis. ACT 112: Negative or not required by law. Electronically signed by: Barak Miller M.D. 02/23/2022 8:46 AM Abdomen/Pelvis CT 02/22/22 22:35 CT abd pelvis wo con CLINICAL HISTORY: abd pain, uti TECHNIQUE: Helical axial images of the abdomen and pelvis were obtained. Automated dose lowering techniques and/or adjustment according to patient size were utilized for this exam. This exam was performed without intravenous contrast. CT DOSE: 446.38 mGy.cm COMPARISON: Comparison is made to CT abdomen pelvis 01/30/2022 FINDINGS: Lower chest: Bibasilar atelectasis versus scarring is seen. Liver: Subcentimeter hypodensities in the liver are too small to characterize. Gallbladder and biliary tree: No calcified gallstones. Normal caliber wall. No intra- or extrahepatic biliary ductal dilation. Pancreas: Unremarkable, no focal lesions. Spleen: Unremarkable. Adrenals: Unremarkable. Kidneys and ureters: Unremarkable. Bladder: Ellis catheter is seen. Reproductive organs: Unremarkable. Bowel: Diverticulosis is seen without evidence of diverticulitis. A moderate hiatal hernia is seen. Lymph nodes Retroperitoneal: Unremarkable. Pelvic: Unremarkable. Mesenteric: Unremarkable. Peritoneum: Normal. Vessels: Atherosclerotic calcifications are seen. Abdominal wall: Unremarkable. Bones: Compared to the prior exam, there is interval increase in the T12 compression fracture. There is new 3 mm retropulsion. Partially visualized is a T9 compression deformity with no significant retropulsion seen.3 right L3 transverse process fracture appears unchanged from prior exam, likely chronic. Degenerative changes are seen. IMPRESSION: 1. No urolithiasis or obstructive uropathy is seen. Diverticulosis without diverticulitis. There is interval T12 vertebral fracture which is increased from prior exam, age-indeterminate but favored to be acute to subacute. Correlation with point tenderness is recommended. 2. Diverticulosis without diverticulitis. 3. Additional findings as above. ACT 112: Negative or not required by law. Electronically signed by: Maurice Day M.D. 02/23/2022 8:57 AM Medications Administered Current Inpatient Medications Acetaminophen (Acetaminophen 325 Mg Tab) 650 mg PO Q4H PRN PRN Reason: Pain or Fever Stop: 03/25/22 04:55 Albuterol (Albuterol Hfa 8 Gm Inhaler (Combivent Respimat P&T Subs)) [address] [facility]; Protocol Stop: 03/25/22 06:59 Last Admin: 02/23/22 11:22 Dose: Not Given Artificial Tears (Artificial Tears) 1 drops OP QID PRN PRN Reason: Dry Eye(S) Stop: 03/25/22 06:03 Ascorbic Acid (Ascorbic Acid 500 Mg Tab) [address] [facility] Stop: 03/25/22 08:59 Last Admin: 02/23/22 09:10 Dose: Not Given Betamethasone Valerate (Betamethasone Susana 0.1% Oint 15 Gm Tube) 1 appln EXT BID PRN PRN Reason: dermatitis Stop: 03/25/22 04:55 Cetirizine HCl (Cetirizine Hcl 10 Mg Tablet) [address] [facility] Stop: 03/25/22 08:59 Last Admin: 02/23/22 09:07 Dose: Not Given Escitalopram Oxalate (Escitalopram Oxalate 20 Mg Tab) [address] [facility] Stop: 03/25/22 08:59 Fluticasone Furoate (Fluticasone Furoate 200mcg 14 Puffs/Inhaler) [address] [facility] Stop: 03/25/22 08:59 Last Admin: 02/23/22 08:49 Dose: 1 puffs Gabapentin (Gabapentin 100 Mg Cap) [address] [facility] Stop: 03/25/22 08:59 Last Admin: 02/23/22 08:49 Dose: 200 mg Heparin Sodium (Porcine) (Heparin Sod 5,000 Unit/0.5 Ml Vial) 5,[address] [facility] Stop: 03/25/22 08:59 Last Admin: 02/23/22 08:50 Dose: 5,000 units Hydrocortisone (Hydrocortisone 1% Crm 30 Gm Tube) 1 appln EXT TID PRN PRN Reason: itchiness Stop: 03/25/22 05:58 Hydroxyzine HCl (Hydroxyzine Hcl 25 Mg Tab) 25 mg PO HS PRN PRN Reason: Itching Stop: 03/25/22 04:55 Hydroxyzine HCl (Hydroxyzine Hcl 10 Mg Tab) 10 mg PO QAM PRN PRN Reason: Itching Stop: 03/25/22 04:55 Sodium Chloride (Nss 1000ml) 1,000 mls @ 100 mls/hr IV .Q10H [facility] Stop: 02/24/22 00:55 Last Admin: 02/23/22 05:11 Dose: 100 mls/hr Ertapenem 1,000 mg/ Syringe 10 mls @ 2 mls/min IV Q24H [facility] Stop: 03/05/22 22:59 Ipratropium [place] (Ipratropium Hfa Inhaler (Combivent Respimat P&T Subs)) [address] [facility]; Protocol Stop: 03/25/22 06:59 Last Admin: 02/23/22 11:23 Dose: Not Given Levothyroxine Sodium (Levothyroxine Sodium 75 Mcg Tablet) [address] [facility] Stop: 03/25/22 06:29 Last Admin: 02/23/22 07:07 Dose: 75 mcg Linaclotide (Linaclotide 145 Mcg Capsule) [address] [facility] Stop: 03/25/22 08:59 Last Admin: 02/23/22 09:10 Dose: Not Given Megestrol Acetate (Megestrol Acetate Susp 400 Mg/10 Ml Udc) [address] [facility] Stop: 03/25/22 08:59 Last Admin: 02/23/22 09:10 Dose: Not Given Melatonin (Melatonin 3 Mg Tab) [address] [facility] Stop: 03/25/22 20:59 Mirtazapine (Mirtazapine Tab 15 Mg Tab) 7.[address] [facility] Stop: 03/25/22 20:59 Miscellaneous (Lifitegrast [Xiidra] 5%: Order Awaiting Action) 1 each N/A QS [facility] Stop: 03/25/22 07:59 Last Admin: 02/23/22 08:50 Dose: Not Given Multivitamins (Multivitamin Tab) [address] [facility] Stop: 03/25/22 08:59 Last Admin: 02/23/22 09:10 Dose: Not Given Multivitamins/Minerals (Cerovite Adv Formula Tab) 1 tab PO DAILY [facility] Stop: 03/25/22 08:59 Last Admin: 02/23/22 09:10 Dose: Not Given Nitroglycerin (Nitroglycerin Sl 0.4 Mg/Tab Tab) 0.4 mg SL UD PRN PRN Reason: Chest Pain Stop: 03/25/22 04:55 Pantoprazole Sodium (Pantoprazole 40 Mg Tab) 40 mg PO DAILYBB [facility] Stop: 03/25/22 06:29 Last Admin: 02/23/22 07:07 Dose: 40 mg Polyethylene Glycol (Polyethylene (Miralax) 17 Gm Pack) 17 gm PO DAILY PRN PRN Reason: Constipation Stop: 03/25/22 04:55 Quetiapine Fumarate (Quetiapine Fumarate 50 Mg Tabcr) [address] [facility] Stop: 03/25/22 08:59 Last Admin: 02/23/22 09:07 Dose: Not Given Rosuvastatin Calcium (Rosuvastatin Calcium 5 Mg Tab) [address] [facility] Stop: 03/25/22 20:59 Senna/Docusate Sodium (Docusate Sodium/Senna 50/8.6mg Tab) 2 tab PO HS PRN PRN Reason: Constipation Stop: 03/25/22 06:10 Tamsulosin HCl (Tamsulosin Hcl 0.4 Mg Cap) 0.[address] [facility] Stop: 03/25/22 20:59 Topiramate (Topiramate 50 Mg Tab) 50 mg PO BID [facility] Stop: 03/25/22 08:59 Last Admin: 02/23/22 08:50 Dose: 50 mg Tramadol HCl (Tramadol Hcl 50 Mg Tablet) 50 mg PO BID [facility] Stop: 03/25/22 08:59 Last Admin: 02/23/22 09:07 Dose: Not Given
--- NOTE | 2022-02-23 13:01 | Electrocardiogram Report ---
Test Reason : Blood Pressure : / mmHG Vent. Rate : 075 BPM Atrial Rate : 394 BPM P-R Int : 000 ms QRS Dur : 144 ms QT Int : 444 ms P-R-T Axes : 000 -39 025 degrees QTc Int : 495 ms Poor data quality, interpretation may be adversely affected Probably NSR Left axis deviation Right bundle branch block T wave abnormality, consider anterior ischemia Abnormal ECG When compared with ECG of 22-FEB-2022 23:06, No significant change was found Confirmed by Edward Christopher ([id number]) on 02/23/2022 1:00:56 PM Referred By: REFERRED SELF Confirmed By:Edward Christopher
[2022-02-23] MEDS: MELATONIN 3 MG TAB PO SCH (21:21)
[2022-02-23] MEDS: ROSUVASTATIN CALCIUM 5 MG TAB PO SCH (21:21)
[2022-02-23] MEDS: TAMSULOSIN HCL 0.4 MG CAP PO SCH (21:23)
[2022-02-23] MEDS: MIRTAZAPINE TAB 15 MG TAB PO SCH (21:23)
[2022-02-23] MEDS: ERTAPENEM SODIUM 1,000 MG in SYRINGE 0 ML IV SCH (23:41)
[2022-02-24] MEDS: PANTOprazole 40 MG TAB PO SCH (07:12)
[2022-02-24] MEDS: LEVOTHYROXINE SODIUM 75 MCG TABLET PO SCH (07:12)
[2022-02-24 07:25] LABS: Basophils # (auto) 0.05 K/uL (0-0.2); Basophils % (auto) 1.1 %; Eosinophils # (auto) 0.32 K/uL (0-0.50); Eosinophils % (auto) 7.2 %; Hematocrit (blood only) 31.3 % (34.1-44.9); Hemoglobin 10.3 g/dl (12.0-16.0); Immature Granulocytes # (auto) 0.02 K/uL (0.00-0.02); Immature Granulocytes % (auto) 0.5 %; Lymphocytes # (auto) 1.43 K/uL (1.2-3.4); Lymphocytes % (auto) 32.2 %; Mean Corpuscular Hemoglobin 29.4 pg (25.0-34.0); Mean Corpuscular Hgb Conc 32.9 g/dL (32.0-36.0); Mean Corpuscular Volume 89.4 fL (80.0-100.0); Mean Platelet Volume 10.6 fL (9.4-12.3); Monocytes # (auto) 0.59 K/uL (0.24-0.82); Monocytes % (auto) 13.3 %; Neutrophils # (auto) 2.03 K/uL (1.4-6.5); Neutrophils % (auto) 45.7 %; Platelet Count 239 K/uL (130-400); RDW Standard Deviation 55.6 fL (36.4-46.3); White Blood Count 4.44 K/ul (4.8-10.8)
[2022-02-24] MEDS: Ipratropium HFA Inhaler (Combivent Respimat P&T Subs) INH SCH ×3 (07:28→19:26)
[2022-02-24] MEDS: Albuterol HFA 8 GM Inhaler (Combivent Respimat P&T Subs) INH SCH ×3 (07:29→19:26)
[2022-02-24 07:46] LABS: BUN Creatinine Ratio 10.8 (10-20); Calcium 7.6 mg/dl (8.5-10.1); Creatinine Clr Calc Pharmacy 41.3 ml/min; Est GFR (African American) 72.5 ml/min; Est GFR (Non-African American) 62.5 ml/min; Magnesium 2.2 mg/dl (1.7-2.4); Phosphorus 3.6 mg/dl (2.5-4.9); Potassium 3.8 mmol/L (3.5-5.1)
[2022-02-24] MEDS: GABAPENTIN 100 MG CAP PO SCH ×2 (09:09→21:37)
[2022-02-24] MEDS: ASCORBIC ACID 500 MG TAB PO SCH (09:09)
[2022-02-24] MEDS: HEPARIN SOD 5,000 UNIT/0.5 ML VIAL SQ SCH ×2 (09:09→21:38)
[2022-02-24] MEDS: FLUTICASONE FUROATE 200MCG 14 PUFFS/INHALER INH SCH ×2 (09:09→21:39)
[2022-02-24] MEDS: CETIRIZINE HCL 10 MG TABLET PO SCH ×2 (09:09→21:37)
[2022-02-24] MEDS: traMADol HCL 50 MG TABLET PO SCH ×2 (09:10→21:36)
[2022-02-24] MEDS: MULTIVITAMIN TAB PO SCH (09:10)
[2022-02-24] MEDS: QUEtiapine FUMARATE 50 MG TABCR PO SCH ×2 (09:10→21:38)
[2022-02-24] MEDS: MEGESTROL ACETATE SUSP 400 MG/10 ML UDC PO SCH (09:10)
[2022-02-24] MEDS: CEROVITE ADV FORMULA TAB PO SCH (09:10)
[2022-02-24] MEDS: TOPIRAMATE 50 MG TAB PO SCH ×2 (09:10→21:36)
[2022-02-24] MEDS: LINACLOTIDE 145 MCG CAPSULE PO SCH (09:10)
--- NOTE | 2022-02-24 12:22 | Hospitalist Progress Note ---
Date of Service February 24, 2022 Assessment & Plan (1) Confusion: Plan: - unclear etiology, appears to be progressive - UA mostly negative but is on chronic cipro suppression therapy - urine in ellis appears cloudy with debris - started on ertapenem for history of ESBL UTIs - will continue for total of 7 days likely (2/7) - blood cultures NGTD - mental status appears to be improving and will continue to monitor for improvement - given history, age, recurrent UTIs, and frailty - will consult Palliative care for further GOC discussion, son aware and in agreement - PT/OT this admission (2) COPD (chronic obstructive pulmonary disease): Plan: - on home O2 2L NC at baseline - not in exacerbation at this time - continue home meds (3) Hypothyroidism: Plan: - continue home medication (4) Anemia: Plan: - stable, no signs of bleeding - will monitor for now (5) GERD (gastroesophageal reflux disease): Plan: - continue PPI (6) History of TIA (transient ischemic attack): Plan: - continue statin (7) HLD (hyperlipidemia): Plan: - continue statin (8) Depression: Plan: - continue Remeron and Lexapro Plan DVT ppx: heparin SC Code Status: DNR/DNI Dispo: telemetry Pedro Baez MD [facility] Medicine Admission and Anticipated Discharge Date Admission Date: February 23, 2022 Subjective Patient with COPD on 2L home O2 by NC, h/o TIA, HLD, hypothyroidism, h/o recurrent ESBL UTIs, GERD, mild dementia presented with confusion, lethargy, thoguht to be sespsi related to UTI. UA negative for infection, blood cultures drawn, started on ertapenem. Patient is feeling well today, endorses improved appetite, denies any complaints today. Denied chest pain, shortness of breath, n/v/d, abdominal pain, dysuria. Review of Systems Review of Systems: All systems reviewed & are unremarkable except as noted in Subjective Physical Exam Physical Exam: GENERAL: The patient is old and frail, sleeping but wakes to voice HEENT: Pupils equal No obvious facial droop seen. NECK: No obvious neck masses seen. CARDIOVASCULAR: S1 and S2 heard. Regular rate and rhythm. No murmur, no gallop. RESPIRATORY SYSTEM: Normal AP diameter. No accessory muscle use. No wheezing, no crackles. ABDOMEN: Soft, bowel sounds present, nontender, no distention. CENTRAL NERVOUS SYSTEM: sleepy but wakens to verbal stimuli. Moves extremities spontaneously, answering questions mostly appropriately, did not know where she was exactly EXTREMITIES: No edema, no erythema. Results & Data Results & Data ([facility]) Vital Signs (Past 12 Hours) Vital Signs Temp Pulse Resp BP Pulse Ox O2 Del Method O2 Flow Rate 02/24/22 07:38 37.1 C 64 16 114/63 93 Nasal Cannula 2 02/24/22 07:29 62 16 92 Nasal Cannula 2 02/24/22 03:15 71 18 126/62 93 Nasal Cannula 2 Diagnostic Findings Laboratory Results WBC 4.44 K/ul (4.8-10.8) L 02/24/22 06:39 RBC 3.50 M/uL (3.93-5.22) L 02/24/22 06:39 Hgb 10.3 g/dl (12.0-16.0) L 02/24/22 06:39 Hct 31.3 % (34.1-44.9) L 02/24/22 06:39 MCV 89.4 fL (80.0-100.0) 02/24/22 06:39 MCH 29.4 pg (25.0-34.0) 02/24/22 06:39 MCHC 32.9 g/dL (32.0-36.0) 02/24/22 06:39 RDW Std Deviation 55.6 fL (36.4-46.3) H 02/24/22 06:39 RDW Coeff of Nancy 17.0 % (11.5-14.5) H 02/24/22 06:39 Plt Count 239 K/uL (130-400) 02/24/22 06:39 MPV 10.6 fL (9.4-12.3) 02/24/22 06:39 Immature Gran % (Auto) 0.5 % 02/24/22 06:39 Neut % (Auto) 45.7 % 02/24/22 06:39 Lymph % (Auto) 32.2 % 02/24/22 06:39 [place] % (Auto) 13.3 % 02/24/22 06:39 Eos % (Auto) 7.2 % 02/24/22 06:39 Baso % (Auto) 1.1 % 02/24/22 06:39 Neut # (Auto) 2.03 K/uL (1.4-6.5) 02/24/22 06:39 Lymph # (Auto) 1.43 K/uL (1.2-3.4) 02/24/22 06:39 [place] # (Auto) 0.59 K/uL (0.24-0.82) 02/24/22 06:39 Eos # (Auto) 0.32 K/uL (0-0.50) 02/24/22 06:39 Baso # (Auto) 0.05 K/uL (0-0.2) 02/24/22 06:39 Immature Gran # (Auto) 0.02 K/uL (0.00-0.02) 02/24/22 06:39 Sodium 141 mmol/L (136-145) 02/24/22 06:39 Potassium 3.8 mmol/L (3.5-5.1) 02/24/22 06:39 Chloride 114 mmol/L (98-107) H 02/24/22 06:39 Carbon Dioxide 24 mmol/L (21-32) 02/24/22 06:39 Anion Gap 3 (3-11) 02/24/22 06:39 BUN 9 mg/dl (6-23) 02/24/22 06:39 Creatinine 0.83 mg/dl (0.6-1.2) 02/24/22 06:39 Est Cr Clr Drug Dosing 41.3 ml/min 02/24/22 06:39 Est GFR ( Amer) 72.5 ml/min 02/24/22 06:39 Est GFR (Non-Af Amer) 62.5 ml/min 02/24/22 06:39 BUN/Creatinine Ratio 10.8 (10-20) 02/24/22 06:39 Glucose 88 mg/dl (70-99(Fasting)) 02/24/22 06:39 POC Glucose 91 mg/dl (70-99) 02/24/22 07:41 Lactate 0.8 mmol/L (0.4-2.0) 02/22/22 22:53 Calcium 7.6 mg/dl (8.5-10.1) L 02/24/22 06:39 Phosphorus 3.6 mg/dl (2.5-4.9) 02/24/22 06:39 Magnesium 2.2 mg/dl (1.7-2.4) 02/24/22 06:39 Total Bilirubin 0.8 mg/dl (0.2-1.0) 02/22/22 22:53 Direct Bilirubin 0.1 mg/dl (0-0.2) 02/22/22 22:53 AST 20 U/L (13-39) 02/22/22 22:53 ALT 16 U/L (7-52) 02/22/22 22:53 Alkaline Phosphatase 151 U/L (34-104) H 02/22/22 22:53 Total Creatine Kinase 214 U/L (26-192) H 02/22/22 22:53 Troponin I High Sens 14.0 pg/ml (0-14) 02/23/22 02:39 Total Protein 6.9 gm/dl (6.0-8.3) D 02/22/22 22:53 Albumin 3.9 gm/dl (3.4-5.0) 02/22/22 22:53 Procalcitonin < 0.05 ng/ml (0-0.5) 02/22/22 22:53 Urine Color Dark Yellow 02/22/22 22:51 Urine Appearance Clear (Clear) 02/22/22 22:51 Urine pH 7.5 (4.5-7.5) 02/22/22 22:51 POC Urine pH 7 (4.5-7.5) 02/22/22 Unknown Ur Specific [place] 1.018 (1.000-1.030) 02/22/22 22:51 Urine Protein Negative (Negative) 02/22/22 22:51 POC Urine Protein Trace (Negative) H 02/22/22 Unknown Urine Glucose (UA) Negative (Negative) 02/22/22 22:51 POC Ur Glucose (UA) Normal (Normal) 02/22/22 Unknown Urine Ketones Negative (Negative) 02/22/22 22:51 POC Urine Ketones Negative (Negative) 02/22/22 Unknown Urine Blood Negative (Negative) 02/22/22 22:51 POC Urine Blood Negative (Negative) 02/22/22 Unknown Urine Nitrite Negative (Negative) 02/22/22 22:51 Urine Bilirubin Negative (Negative) 02/22/22 22:51 POC Urine Bilirubin 1+ (Negative) H 02/22/22 Unknown Urine Urobilinogen Negative (Negative) 02/22/22 22:51 POC Urine Urobilinogen 1 (Normal) H 02/22/22 Unknown Ur Leukocyte Esterase Trace (Negative) H 02/22/22 22:51 POC U Leukocyte Esteras Trace (Negative) H 02/22/22 Unknown Urine WBC (Auto) 1-5 /hpf (0-5) 02/22/22 22:51 Urine RBC (Auto) 0-4 /hpf (0-4) 02/22/22 22:51 U Hyaline Cast (Auto) 1-5 /lpf (0-5) 02/22/22 22:51 U Epithel Cells (Auto) 10-20 /lpf (0-5) H 02/22/22 22:51 Urine Bacteria (Auto) Negative (Negative) 02/22/22 22:51 SARS-CoV-2 (PCR) NEGATIVE (Negative) 02/23/22 Unknown Influenza Type A (PCR) Negative (Neg) 02/23/22 Unknown Influenza Type B (PCR) Negative (Neg) 02/23/22 Unknown RSV (RT-PCR) Negative (Neg) 02/23/22 Unknown Impressions Chest X-Ray 02/22/22 22:32 XR chest 1V portable HISTORY: Sepsis COMPARISON: Chest 01/30/2022. FINDINGS: No pneumothorax. No pleural effusions. Right subdiaphragmatic lucency is consistent with interposed colon. A few bibasilar densities noted which are similar to the prior study. This favors atelectasis. No evidence for pulmonary edema. The heart remains mildly enlarged. IMPRESSION: A few bibasilar linear densities which are nonspecific but favor atelectasis. ACT 112: Negative or not required by law. Electronically signed by: Barak Miller M.D. 02/23/2022 8:46 AM Abdomen/Pelvis CT 02/22/22 22:35 CT abd pelvis wo con CLINICAL HISTORY: abd pain, uti TECHNIQUE: Helical axial images of the abdomen and pelvis were obtained. Automated dose lowering techniques and/or adjustment according to patient size were utilized for this exam. This exam was performed without intravenous contrast. CT DOSE: 446.38 mGy.cm COMPARISON: Comparison is made to CT abdomen pelvis 01/30/2022 FINDINGS: Lower chest: Bibasilar atelectasis versus scarring is seen. Liver: Subcentimeter hypodensities in the liver are too small to characterize. Gallbladder and biliary tree: No calcified gallstones. Normal caliber wall. No intra- or extrahepatic biliary ductal dilation. Pancreas: Unremarkable, no focal lesions. Spleen: Unremarkable. Adrenals: Unremarkable. Kidneys and ureters: Unremarkable. Bladder: Ellis catheter is seen. Reproductive organs: Unremarkable. Bowel: Diverticulosis is seen without evidence of diverticulitis. A moderate hiatal hernia is seen. Lymph nodes Retroperitoneal: Unremarkable. Pelvic: Unremarkable. Mesenteric: Unremarkable. Peritoneum: Normal. Vessels: Atherosclerotic calcifications are seen. Abdominal wall: Unremarkable. Bones: Compared to the prior exam, there is interval increase in the T12 compression fracture. There is new 3 mm retropulsion. Partially visualized is a T9 compression deformity with no significant retropulsion seen.3 right L3 transverse process fracture appears unchanged from prior exam, likely chronic. Degenerative changes are seen. IMPRESSION: 1. No urolithiasis or obstructive uropathy is seen. Diverticulosis without diverticulitis. There is interval T12 vertebral fracture which is increased from prior exam, age-indeterminate but favored to be acute to subacute. Correlation with point tenderness is recommended. 2. Diverticulosis without diverticulitis. 3. Additional findings as above. ACT 112: Negative or not required by law. Electronically signed by: Maurice Day M.D. 02/23/2022 8:57 AM Medications Administered Current Inpatient Medications Acetaminophen (Acetaminophen 325 Mg Tab) 650 mg PO Q4H PRN PRN Reason: Pain or Fever Stop: 03/25/22 04:55 Albuterol (Albuterol Hfa 8 Gm Inhaler (Combivent Respimat P&T Subs)) 1 puffs INH Q6RWA [facility]; Protocol Stop: 03/25/22 06:59 Last Admin: 02/24/22 07:29 Dose: 1 puffs Artificial Tears (Artificial Tears) 1 drops OP QID PRN PRN Reason: Dry Eye(S) Stop: 03/25/22 06:03 Ascorbic Acid (Ascorbic Acid 500 Mg Tab) 500 mg PO DAILY [facility] Stop: 03/25/22 08:59 Last Admin: 02/24/22 09:09 Dose: 500 mg Betamethasone Valerate (Betamethasone Susana 0.1% Oint 15 Gm Tube) 1 appln EXT BID PRN PRN Reason: dermatitis Stop: 03/25/22 04:55 Cetirizine HCl (Cetirizine Hcl 10 Mg Tablet) 5 mg PO BID [facility] Stop: 03/25/22 08:59 Last Admin: 02/24/22 09:09 Dose: 5 mg Escitalopram Oxalate (Escitalopram Oxalate 20 Mg Tab) 20 mg PO QAM [facility] Stop: 03/25/22 08:59 Fluticasone Furoate (Fluticasone Furoate 200mcg 14 Puffs/Inhaler) 1 puffs INH BID [facility] Stop: 03/25/22 08:59 Last Admin: 02/24/22 09:09 Dose: 1 puffs Gabapentin (Gabapentin 100 Mg Cap) 200 mg PO BID [facility] Stop: 03/25/22 08:59 Last Admin: 02/24/22 09:09 Dose: 200 mg Heparin Sodium (Porcine) (Heparin Sod 5,000 Unit/0.5 Ml Vial) 5,000 units SQ Q12 [facility] Stop: 03/25/22 08:59 Last Admin: 02/24/22 09:09 Dose: 5,000 units Hydrocortisone (Hydrocortisone 1% Crm 30 Gm Tube) 1 appln EXT TID PRN PRN Reason: itchiness Stop: 03/25/22 05:58 Hydroxyzine HCl (Hydroxyzine Hcl 25 Mg Tab) 25 mg PO HS PRN PRN Reason: Itching Stop: 03/25/22 04:55 Hydroxyzine HCl (Hydroxyzine Hcl 10 Mg Tab) 10 mg PO QAM PRN PRN Reason: Itching Stop: 03/25/22 04:55 Ertapenem 1,000 mg/ Syringe 10 mls @ 2 mls/min IV Q24H [facility] Stop: 03/05/22 22:59 Last Admin: 02/23/22 23:41 Dose: 2 mls/min Ipratropium [place] (Ipratropium Hfa Inhaler (Combivent Respimat P&T Subs)) 1 puffs INH Q6RWA [facility]; Protocol Stop: 03/25/22 06:59 Last Admin: 02/24/22 07:28 Dose: 1 puffs Levothyroxine Sodium (Levothyroxine Sodium 75 Mcg Tablet) 75 mcg PO DAILYBB [facility] Stop: 03/25/22 06:29 Last Admin: 02/24/22 07:12 Dose: 75 mcg Linaclotide (Linaclotide 145 Mcg Capsule) 145 mcg PO DAILY [facility] Stop: 03/25/22 08:59 Last Admin: 02/24/22 09:10 Dose: 145 mcg Megestrol Acetate (Megestrol Acetate Susp 400 Mg/10 Ml Udc) 400 mg PO DAILY [facility] Stop: 03/25/22 08:59 Last Admin: 02/24/22 09:10 Dose: 400 mg Melatonin (Melatonin 3 Mg Tab) 3 mg PO HS [facility] Stop: 03/25/22 20:59 Last Admin: 02/23/22 21:21 Dose: 3 mg Mirtazapine (Mirtazapine Tab 15 Mg Tab) 7.5 mg PO HS [facility] Stop: 03/25/22 20:59 Last Admin: 02/23/22 21:23 Dose: 7.5 mg Miscellaneous (Lifitegrast [Xiidra] 5%: Order Awaiting Action) 1 each N/A QS [facility] Stop: 03/25/22 07:59 Last Admin: 02/24/22 06:58 Dose: Not Given Multivitamins (Multivitamin Tab) 1 tab PO DAILY [facility] Stop: 03/25/22 08:59 Last Admin: 02/24/22 09:10 Dose: 1 tab Multivitamins/Minerals (Cerovite Adv Formula Tab) 1 tab PO DAILY [facility] Stop: 03/25/22 08:59 Last Admin: 02/24/22 09:10 Dose: 1 tab Nitroglycerin (Nitroglycerin Sl 0.4 Mg/Tab Tab) 0.4 mg SL UD PRN PRN Reason: Chest Pain Stop: 03/25/22 04:55 Pantoprazole Sodium (Pantoprazole 40 Mg Tab) 40 mg PO DAILYBB [facility] Stop: 03/25/22 06:29 Last Admin: 02/24/22 07:12 Dose: 40 mg Polyethylene Glycol (Polyethylene (Miralax) 17 Gm Pack) 17 gm PO DAILY PRN PRN Reason: Constipation Stop: 03/25/22 04:55 Quetiapine Fumarate (Quetiapine Fumarate 50 Mg Tabcr) 100 mg PO BID [facility] Stop: 03/25/22 08:59 Last Admin: 02/24/22 09:10 Dose: 100 mg Rosuvastatin Calcium (Rosuvastatin Calcium 5 Mg Tab) 5 mg PO HS [facility] Stop: 03/25/22 20:59 Last Admin: 02/23/22 21:21 Dose: 5 mg Senna/Docusate Sodium (Docusate Sodium/Senna 50/8.6mg Tab) 2 tab PO HS PRN PRN Reason: Constipation Stop: 03/25/22 06:10 Tamsulosin HCl (Tamsulosin Hcl 0.4 Mg Cap) 0.8 mg PO HS [facility] Stop: 03/25/22 20:59 Last Admin: 02/23/22 21:23 Dose: 0.8 mg Topiramate (Topiramate 50 Mg Tab) 50 mg PO BID [facility] Stop: 03/25/22 08:59 Last Admin: 02/24/22 09:10 Dose: 50 mg Tramadol HCl (Tramadol Hcl 50 Mg Tablet) 50 mg PO BID [facility] Stop: 03/25/22 08:59 Last Admin: 02/24/22 09:10 Dose: 50 mg
[2022-02-24] MEDS: MELATONIN 3 MG TAB PO SCH (21:36)
[2022-02-24] MEDS: TAMSULOSIN HCL 0.4 MG CAP PO SCH (21:36)
[2022-02-24] MEDS: ROSUVASTATIN CALCIUM 5 MG TAB PO SCH (21:37)
[2022-02-24] MEDS: MIRTAZAPINE TAB 15 MG TAB PO SCH (21:37)
[2022-02-24] MEDS: ERTAPENEM SODIUM 1,000 MG in SYRINGE 0 ML IV SCH (22:45)
[2022-02-25] MEDS: PANTOprazole 40 MG TAB PO SCH (05:45)
[2022-02-25] MEDS: LEVOTHYROXINE SODIUM 75 MCG TABLET PO SCH (05:45)
[2022-02-25] MEDS: Ipratropium HFA Inhaler (Combivent Respimat P&T Subs) INH SCH ×3 (05:58→20:06)
[2022-02-25] MEDS: Albuterol HFA 8 GM Inhaler (Combivent Respimat P&T Subs) INH SCH ×3 (05:59→20:06)
[2022-02-25] MEDS: MULTIVITAMIN TAB PO SCH (08:12)
[2022-02-25] MEDS: QUEtiapine FUMARATE 50 MG TABCR PO SCH ×2 (08:12→21:39)
[2022-02-25] MEDS: LINACLOTIDE 145 MCG CAPSULE PO SCH (08:12)
[2022-02-25] MEDS: ASCORBIC ACID 500 MG TAB PO SCH (08:12)
[2022-02-25] MEDS: CETIRIZINE HCL 10 MG TABLET PO SCH ×2 (08:13→20:31)
[2022-02-25] MEDS: CEROVITE ADV FORMULA TAB PO SCH (08:13)
[2022-02-25] MEDS: HEPARIN SOD 5,000 UNIT/0.5 ML VIAL SQ SCH ×2 (08:14→20:32)
[2022-02-25] MEDS: TOPIRAMATE 50 MG TAB PO SCH ×2 (08:14→20:30)
[2022-02-25] MEDS: GABAPENTIN 100 MG CAP PO SCH ×2 (08:14→20:32)
[2022-02-25] MEDS: FLUTICASONE FUROATE 200MCG 14 PUFFS/INHALER INH SCH (08:14)
[2022-02-25] MEDS: MEGESTROL ACETATE SUSP 400 MG/10 ML UDC PO SCH (08:15)
[2022-02-25] MEDS: traMADol HCL 50 MG TABLET PO SCH (08:16)
[2022-02-25] MEDS ORDERED: traMADol HCL 50 MG TABLET PO PRN (12:30)
--- NOTE | 2022-02-25 12:36 | Hospitalist Progress Note ---
Date of Service February 25, 2022 Assessment & Plan (1) Confusion: Plan: - unclear etiology, appears to be progressive - UA mostly negative but is on chronic cipro suppression therapy - urine in [place] appears cloudy with debris - started on ertapenem for history of ESBL UTIs - will continue for total of 7 days likely (2/7) - blood cultures NGTD - mental status appears to be improving and will continue to monitor for improvement - given history, age, recurrent UTIs, and frailty - Palliative care consulted for further GOC discussion, son aware and in agreement - Palliative discussion resulted in patient to be discharged back to [place] with Hospice care - anticipated discharge 02/26/2022 - PT/OT (2) COPD (chronic obstructive pulmonary disease): Plan: - on home O2 2L NC at baseline - not in exacerbation at this time - continue home meds (3) Hypothyroidism: Plan: - continue home medication (4) Anemia: Plan: - stable, no signs of bleeding - will monitor for now (5) GERD (gastroesophageal reflux disease): Plan: - continue PPI (6) History of TIA (transient ischemic attack): Plan: - continue statin (7) HLD (hyperlipidemia): Plan: - continue statin (8) Depression: Plan: - continue Remeron and Lexapro Plan DVT ppx: heparin SC Code Status: DNR/DNI Dispo: telemetry Pedro Baez MD [facility] Medicine Admission and Anticipated Discharge Date Admission Date: February 23, 2022 Subjective Patient with COPD on 2L home O2 by NC, h/o TIA, HLD, hypothyroidism, h/o recurrent ESBL UTIs, GERD, mild dementia presented with confusion, lethargy, thoguht to be sespsi related to UTI. UA negative for infection, blood cultures drawn, started on ertapenem. Palliative discussed with patient' son and have decided to [place] with Hospice, planning for discharge 02/26/2022. Patient is feeling well today, endorses improved appetite, denies any complaints today. Denied chest pain, shortness of breath, n/v/d, abdominal pain, dysuria. Review of Systems Review of Systems: All systems reviewed & are unremarkable except as noted in Subjective Physical Exam Physical Exam: GENERAL: The patient is old and frail, sleeping but wakes to voice HEENT: Pupils equal No obvious facial droop seen. NECK: No obvious neck masses seen. CARDIOVASCULAR: S1 and S2 heard. Regular rate and rhythm. No murmur, no gallop. RESPIRATORY SYSTEM: Normal AP diameter. No accessory muscle use. No wheezing, no crackles. ABDOMEN: Soft, bowel sounds present, nontender, no distention. CENTRAL NERVOUS SYSTEM: sleepy but wakens to verbal stimuli. Moves extremities spontaneously, answering questions mostly appropriately, did not know where she was exactly EXTREMITIES: No edema, no erythema. Results & Data Results & Data ([facility]) Vital Signs (Past 12 Hours) Vital Signs Temp Pulse Pulse Resp BP Pulse Ox O2 Del Method 02/25/22 11:23 36.4 C L 75 20 97/59 L 92 Room Air 02/25/22 07:40 36.8 C 58 L 18 108/62 90 Nasal Cannula 02/25/22 07:32 Nasal Cannula 02/25/22 07:00 57 L 02/25/22 06:01 74 18 93 Nasal Cannula 02/25/22 02:46 36.6 C 64 16 108/61 94 Nasal Cannula 02/25/22 00:56 64 O2 Flow Rate 02/25/22 11:23 4 02/25/22 07:40 4 02/25/22 07:32 2 02/25/22 07:00 02/25/22 06:01 3 02/25/22 02:46 4 02/25/22 00:56 Diagnostic Findings Laboratory Results WBC 4.44 K/ul (4.8-10.8) L 02/24/22 06:39 RBC 3.50 M/uL (3.93-5.22) L 02/24/22 06:39 Hgb 10.3 g/dl (12.0-16.0) L 02/24/22 06:39 Hct 31.3 % (34.1-44.9) L 02/24/22 06:39 MCV 89.4 fL (80.0-100.0) 02/24/22 06:39 MCH 29.4 pg (25.0-34.0) 02/24/22 06:39 MCHC 32.9 g/dL (32.0-36.0) 02/24/22 06:39 RDW Std Deviation 55.6 fL (36.4-46.3) H 02/24/22 06:39 RDW Coeff of Nancy 17.0 % (11.5-14.5) H 02/24/22 06:39 Plt Count 239 K/uL (130-400) 02/24/22 06:39 MPV 10.6 fL (9.4-12.3) 02/24/22 06:39 Immature Gran % (Auto) 0.5 % 02/24/22 06:39 Neut % (Auto) 45.7 % 02/24/22 06:39 Lymph % (Auto) 32.2 % 02/24/22 06:39 [place] % (Auto) 13.3 % 02/24/22 06:39 Eos % (Auto) 7.2 % 02/24/22 06:39 Baso % (Auto) 1.1 % 02/24/22 06:39 Neut # (Auto) 2.03 K/uL (1.4-6.5) 02/24/22 06:39 Lymph # (Auto) 1.43 K/uL (1.2-3.4) 02/24/22 06:39 [place] # (Auto) 0.59 K/uL (0.24-0.82) 02/24/22 06:39 Eos # (Auto) 0.32 K/uL (0-0.50) 02/24/22 06:39 Baso # (Auto) 0.05 K/uL (0-0.2) 02/24/22 06:39 Immature Gran # (Auto) 0.02 K/uL (0.00-0.02) 02/24/22 06:39 Sodium 141 mmol/L (136-145) 02/24/22 06:39 Potassium 3.8 mmol/L (3.5-5.1) 02/24/22 06:39 Chloride 114 mmol/L (98-107) H 02/24/22 06:39 Carbon Dioxide 24 mmol/L (21-32) 02/24/22 06:39 Anion Gap 3 (3-11) 02/24/22 06:39 BUN 9 mg/dl (6-23) 02/24/22 06:39 Creatinine 0.83 mg/dl (0.6-1.2) 02/24/22 06:39 Est Cr Clr Drug Dosing 41.3 ml/min 02/24/22 06:39 Est GFR ( Amer) 72.5 ml/min 02/24/22 06:39 Est GFR (Non-Af Amer) 62.5 ml/min 02/24/22 06:39 BUN/Creatinine Ratio 10.8 (10-20) 02/24/22 06:39 Glucose 88 mg/dl (70-99(Fasting)) 02/24/22 06:39 POC Glucose 91 mg/dl (70-99) 02/24/22 07:41 Lactate 0.8 mmol/L (0.4-2.0) 02/22/22 22:53 Calcium 7.6 mg/dl (8.5-10.1) L 02/24/22 06:39 Phosphorus 3.6 mg/dl (2.5-4.9) 02/24/22 06:39 Magnesium 2.2 mg/dl (1.7-2.4) 02/24/22 06:39 Total Bilirubin 0.8 mg/dl (0.2-1.0) 02/22/22 22:53 Direct Bilirubin 0.1 mg/dl (0-0.2) 02/22/22 22:53 AST 20 U/L (13-39) 02/22/22 22:53 ALT 16 U/L (7-52) 02/22/22 22:53 Alkaline Phosphatase 151 U/L (34-104) H 02/22/22 22:53 Total Creatine Kinase 214 U/L (26-192) H 02/22/22 22:53 Troponin I High Sens 14.0 pg/ml (0-14) 02/23/22 02:39 Total Protein 6.9 gm/dl (6.0-8.3) D 02/22/22 22:53 Albumin 3.9 gm/dl (3.4-5.0) 02/22/22 22:53 Procalcitonin < 0.05 ng/ml (0-0.5) 02/22/22 22:53 Urine Color Dark Yellow 02/22/22 22:51 Urine Appearance Clear (Clear) 02/22/22 22:51 Urine pH 7.5 (4.5-7.5) 02/22/22 22:51 POC Urine pH 7 (4.5-7.5) 02/22/22 Unknown Ur Specific [place] 1.018 (1.000-1.030) 02/22/22 22:51 Urine Protein Negative (Negative) 02/22/22 22:51 POC Urine Protein Trace (Negative) H 02/22/22 Unknown Urine Glucose (UA) Negative (Negative) 02/22/22 22:51 POC Ur Glucose (UA) Normal (Normal) 02/22/22 Unknown Urine Ketones Negative (Negative) 02/22/22 22:51 POC Urine Ketones Negative (Negative) 02/22/22 Unknown Urine Blood Negative (Negative) 02/22/22 22:51 POC Urine Blood Negative (Negative) 02/22/22 Unknown Urine Nitrite Negative (Negative) 02/22/22 22:51 POC Urine Nitrite Not Reportable 02/22/22 Unknown Urine Bilirubin Negative (Negative) 02/22/22 22:51 POC Urine Bilirubin 1+ (Negative) H 02/22/22 Unknown Urine Urobilinogen Negative (Negative) 02/22/22 22:51 POC Urine Urobilinogen 1 (Normal) H 02/22/22 Unknown Ur Leukocyte Esterase Trace (Negative) H 02/22/22 22:51 POC U Leukocyte Esteras Trace (Negative) H 02/22/22 Unknown Urine WBC (Auto) 1-5 /hpf (0-5) 02/22/22 22:51 Urine RBC (Auto) 0-4 /hpf (0-4) 02/22/22 22:51 U Hyaline Cast (Auto) 1-5 /lpf (0-5) 02/22/22 22:51 U Epithel Cells (Auto) 10-20 /lpf (0-5) H 02/22/22 22:51 Urine Bacteria (Auto) Negative (Negative) 02/22/22 22:51 Nasal Screen MRSA (PCR) Negative (Negative) 02/25/22 02:45 SARS-CoV-2 (PCR) NEGATIVE (Negative) 02/23/22 Unknown Influenza Type A (PCR) Negative (Neg) 02/23/22 Unknown Influenza Type B (PCR) Negative (Neg) 02/23/22 Unknown RSV (RT-PCR) Negative (Neg) 02/23/22 Unknown Impressions Chest X-Ray 02/22/22 22:32 XR chest 1V portable HISTORY: Sepsis COMPARISON: Chest 01/30/2022. FINDINGS: No pneumothorax. No pleural effusions. Right subdiaphragmatic lucency is consistent with interposed colon. A few bibasilar densities noted which are similar to the prior study. This favors atelectasis. No evidence for pulmonary edema. The heart remains mildly enlarged. IMPRESSION: A few bibasilar linear densities which are nonspecific but favor atelectasis. ACT 112: Negative or not required by law. Electronically signed by: Barak Miller M.D. 02/23/2022 8:46 AM Abdomen/Pelvis CT 02/22/22 22:35 CT abd pelvis wo con CLINICAL HISTORY: abd pain, uti TECHNIQUE: Helical axial images of the abdomen and pelvis were obtained. Automated dose lowering techniques and/or adjustment according to patient size were utilized for this exam. This exam was performed without intravenous contrast. CT DOSE: 446.38 mGy.cm COMPARISON: Comparison is made to CT abdomen pelvis 01/30/2022 FINDINGS: Lower chest: Bibasilar atelectasis versus scarring is seen. Liver: Subcentimeter hypodensities in the liver are too small to characterize. Gallbladder and biliary tree: No calcified gallstones. Normal caliber wall. No intra- or extrahepatic biliary ductal dilation. Pancreas: Unremarkable, no focal lesions. Spleen: Unremarkable. Adrenals: Unremarkable. Kidneys and ureters: Unremarkable. Bladder: Ellis catheter is seen. Reproductive organs: Unremarkable. Bowel: Diverticulosis is seen without evidence of diverticulitis. A moderate hiatal hernia is seen. Lymph nodes Retroperitoneal: Unremarkable. Pelvic: Unremarkable. Mesenteric: Unremarkable. Peritoneum: Normal. Vessels: Atherosclerotic calcifications are seen. Abdominal wall: Unremarkable. Bones: Compared to the prior exam, there is interval increase in the T12 compression fracture. There is new 3 mm retropulsion. Partially visualized is a T9 compression deformity with no significant retropulsion seen.3 right L3 transverse process fracture appears unchanged from prior exam, likely chronic. Degenerative changes are seen. IMPRESSION: 1. No urolithiasis or obstructive uropathy is seen. Diverticulosis without diverticulitis. There is interval T12 vertebral fracture which is increased from prior exam, age-indeterminate but favored to be acute to subacute. Correlation with point tenderness is recommended. 2. Diverticulosis without diverticulitis. 3. Additional findings as above. ACT 112: Negative or not required by law. Electronically signed by: Maurice Day M.D. 02/23/2022 8:57 AM Medications Administered Current Inpatient Medications Acetaminophen (Acetaminophen 325 Mg Tab) 650 mg PO Q4H PRN PRN Reason: Pain or Fever Stop: 03/25/22 04:55 Albuterol (Albuterol Hfa 8 Gm Inhaler (Combivent Respimat P&T Subs)) [address] [facility]; Protocol Stop: 03/25/22 06:59 Last Admin: 02/25/22 05:59 Dose: 1 puffs Artificial Tears (Artificial Tears) 1 drops OP QID PRN PRN Reason: Dry Eye(S) Stop: 03/25/22 06:03 Ascorbic Acid (Ascorbic Acid 500 Mg Tab) [address] [facility] Stop: 03/25/22 08:59 Last Admin: 02/25/22 08:12 Dose: 500 mg Betamethasone Valerate (Betamethasone Susana 0.1% Oint 15 Gm Tube) 1 appln EXT BID PRN PRN Reason: dermatitis Stop: 03/25/22 04:55 Cetirizine HCl (Cetirizine Hcl 10 Mg Tablet) [address] [facility] Stop: 03/25/22 08:59 Last Admin: 02/25/22 08:13 Dose: 5 mg Escitalopram Oxalate (Escitalopram Oxalate 20 Mg Tab) [address] [facility] Stop: 03/25/22 08:59 Fluticasone Furoate (Fluticasone Furoate 200mcg 14 Puffs/Inhaler) [address] [facility] Stop: 03/28/22 08:59 Gabapentin (Gabapentin 100 Mg Cap) [address] [facility] Stop: 03/25/22 08:59 Last Admin: 02/25/22 08:14 Dose: 200 mg Heparin Sodium (Porcine) (Heparin Sod 5,000 Unit/0.5 Ml Vial) 5,[address] [facility] Stop: 03/25/22 08:59 Last Admin: 02/25/22 08:14 Dose: 5,000 units Hydrocortisone (Hydrocortisone 1% Crm 30 Gm Tube) 1 appln EXT TID PRN PRN Reason: itchiness Stop: 03/25/22 05:58 Ertapenem 1,000 mg/ Syringe 10 mls @ 2 mls/min IV Q24H [facility] Stop: 03/05/22 22:59 Last Admin: 02/24/22 22:45 Dose: 2 mls/min Ipratropium [place] (Ipratropium Hfa Inhaler (Combivent Respimat P&T Subs)) [address] [facility]; Protocol Stop: 03/25/22 06:59 Last Admin: 02/25/22 05:58 Dose: 1 puffs Levothyroxine Sodium (Levothyroxine Sodium 75 Mcg Tablet) [address] [facility] Stop: 03/25/22 06:29 Last Admin: 02/25/22 05:45 Dose: 75 mcg Linaclotide (Linaclotide 145 Mcg Capsule) [address] [facility] Stop: 03/25/22 08:59 Last Admin: 02/25/22 08:12 Dose: 145 mcg Megestrol Acetate (Megestrol Acetate Susp 400 Mg/10 Ml Udc) [address] [facility] Stop: 03/25/22 08:59 Last Admin: 02/25/22 08:15 Dose: 400 mg Melatonin (Melatonin 3 Mg Tab) [address] [facility] Stop: 03/25/22 20:59 Last Admin: 02/24/22 21:36 Dose: 3 mg Mirtazapine (Mirtazapine Tab 15 Mg Tab) 7.[address] [facility] Stop: 03/25/22 20:59 Last Admin: 02/24/22 21:37 Dose: 7.5 mg Miscellaneous (Lifitegrast [Xiidra] 5%: Order Awaiting Action) 1 each N/A QS [facility] Stop: 03/25/22 07:59 Last Admin: 02/25/22 08:11 Dose: Not Given Multivitamins (Multivitamin Tab) [address] [facility] Stop: 03/25/22 08:59 Last Admin: 02/25/22 08:12 Dose: 1 tab Multivitamins/Minerals (Cerovite Adv Formula Tab) [address] [facility] Stop: 03/25/22 08:59 Last Admin: 02/25/22 08:13 Dose: 1 tab Nitroglycerin (Nitroglycerin Sl 0.4 Mg/Tab Tab) 0.4 mg SL UD PRN PRN Reason: Chest Pain Stop: 03/25/22 04:55 Pantoprazole Sodium (Pantoprazole 40 Mg Tab) [address] [facility] Stop: 03/25/22 06:29 Last Admin: 02/25/22 05:45 Dose: 40 mg Polyethylene Glycol (Polyethylene (Miralax) 17 Gm Pack) 17 gm PO DAILY PRN PRN Reason: Constipation Stop: 03/25/22 04:55 Quetiapine Fumarate (Quetiapine Fumarate 50 Mg Tabcr) [address] [facility] Stop: 03/25/22 08:59 Last Admin: 02/25/22 08:12 Dose: 100 mg Rosuvastatin Calcium (Rosuvastatin Calcium 5 Mg Tab) 5 mg PO HS [facility] Stop: 03/25/22 20:59 Last Admin: 02/24/22 21:37 Dose: 5 mg Senna/Docusate Sodium (Docusate Sodium/Senna 50/8.6mg Tab) 2 tab PO HS PRN PRN Reason: Constipation Stop: 03/25/22 06:10 Tamsulosin HCl (Tamsulosin Hcl 0.4 Mg Cap) 0.[address] [facility] Stop: 03/25/22 20:59 Last Admin: 02/24/22 21:36 Dose: 0.8 mg Topiramate (Topiramate 50 Mg Tab) [address] [facility] Stop: 03/25/22 08:59 Last Admin: 02/25/22 08:14 Dose: 50 mg Tramadol HCl (Tramadol Hcl 50 Mg Tablet) 50 mg PO BID PRN PRN Reason: Pain Stop: 03/25/22 08:59
--- NOTE | 2022-02-25 12:51 | Palliative Care Consultation ---
Date of Consultation February 25, 2022 Assessment & Plan (1) Confusion: Variable but progressively worse. She is on multiple sedating and anticholinergic medications, however, per her son, these are chronic and were not affecting her cognition up until about a month ago. She does have a history of hallucinations since dementia diagnosis and has been on seroquel which her son reports has worked well. (2) Palliative care encounter: I spoke with her son, Wally, who is her POA. He tells me that he has had a significant decline in the last month and would not be surprised if she were to in the next six months. He notes that she has a living will and is DNR/DNI, but had said that she would want antibiotics if needed. He is conflicted about continuing hospitalizations and antibiotics between her living will and his concern that she would not want to live this way. Things that bring her enjoyment and quality of life are shopping and watching old movies. She is not able to do either at this point. He also realizes that repeated hospitalization and change in environment is not helping her mental status. He would like her to be able to return to [place], which she considers to be home, however, that would not be possible in her current circumstances. We discussed options such as SNF for rehab placement, finishing course of antibiotic but not treating future infections that might arise and return to [place] with hospice care. He does not feel that rehab is in her best interest. He would prefer back to [place] with hospice care. Discussed with case management. [id number] History of Present Illness Reason for Consultation: goals of care Requesting Physician: Dr. Baez Attending Physician: Pedro Baez MD History of Present Illness 89 yo lady with history of COPD, on O2 2L at baseline, and recurrent complicated UTI. She was hospitalized earlier this month with ESBL UTI and discharged to [facility]. She was then discharged from [facility] back to [place], where she has resided since October. Her son tells me that up until a month ago, she had been going shopping with him and would get confused at times, but had relatively mild dementia. In the last month he has noted significant functional decline with ambulation, activities and appetite. She has lost 17lbs since October of this year. She has had increased confusion with falls and has a T12 compression fracture. She was readmitted from [place] with elevated temp and confusion, thought to be recurrent UTI. However, blood and urine cultures have been negative. Per RN, she has not complained of pain and mental status is variable. She was able to feed herself breakfast this morning. At time of visit, she is somnolent but arousable. She is confused and talking about how cute the baby is, looking to the corner of the room. She is oriented to person and place but not time. Allergies Allergy/AdvReac Type Severity Reaction Status Date / Time amitriptyline Allergy Unknown Unknown Verified 02/22/22 22:52 celecoxib [From Celebrex] Allergy Unknown [place] Verified 02/22/22 22:52 MED LIST cyclobenzaprine [From Amrix] Allergy Unknown [place] Verified 02/22/22 22:52 MED LIST divalproex sodium Allergy Unknown [place] Verified 02/22/22 22:52 [From Depakote] MED LIST iodine Allergy Unknown [place] Verified 02/22/22 22:52 MED LIST scopolamine Allergy Unknown [place] Verified 02/22/22 22:52 MED LIST tegaserod [From Zelnorm] Allergy Unknown [place] Verified 02/22/22 22:52 MED LIST zolpidem Allergy Unknown [place] Verified 02/22/22 22:52 MED LIST Home Medications Medication Instructions Recorded Confirmed Type acetaminophen 325 mg tablet 650 mg PO Q4 PRN Fever Or Pain 10/18/21 02/22/22 History (Tylenol) ascorbic acid (vitamin C) 500 mg 500 mg PO DAILY 10/18/21 02/22/22 History tablet (Vitamin C) nqhredo-[id number]-ojljhnwn 250 1 tab PO Q6H PRN Pain 10/18/21 02/22/22 History mg-250 mg-65 mg tablet (Excedrin Extra Strength) betamethasone valerate 0.1 % 1 applic topical BID PRN dermatitis 10/18/21 02/22/22 History topical ointment escitalopram oxalate 20 mg tablet 20 mg PO QAM depression 10/18/21 02/22/22 History esomeprazole magnesium 40 mg 40 mg PO DAILYBB GERD 10/18/21 02/22/22 History capsule,delayed release fluticasone propionate 220 2 inh inhalation BID 10/18/21 02/22/22 History mcg/actuation HFA aerosol inhaler (Flovent HFA) fremanezumab-vfrm 225 mg/1.5 mL 225 mg subcut MONTHLY 10/18/21 02/22/22 History subcutaneous syringe (Ajovy Syringe) gabapentin 100 mg capsule 200 mg PO BID 10/18/21 02/22/22 History hydroxyzine HCl 10 mg tablet 10 mg PO QAM PRN Itching 10/18/21 02/22/22 History hydroxyzine HCl 25 mg tablet 25 mg PO HS PRN Itching 10/18/21 02/22/22 History levocetirizine 5 mg tablet 5 mg PO BID 10/18/21 02/22/22 History lifitegrast 5 % eye drops in a 1 drp OPB BID 10/18/21 02/22/22 History dropperette (Xiidra) linaclotide 145 mcg capsule 145 mcg PO DAILY 10/18/21 02/22/22 History (Linzess) mirtazapine 15 mg tablet (Remeron) 7.5 mg PO HS 10/18/21 02/22/22 History multivitamin 1 tab PO DAILY 10/18/21 02/22/22 History quetiapine 50 mg tablet,extended 100 mg PO BID 10/18/21 02/22/22 History release 24 hr (Seroquel XR) rosuvastatin 5 mg tablet (Crestor) 5 mg PO HS 10/18/21 02/22/22 History sennosides 8.6 mg-docusate sodium 2 tab-cap PO HS PRN Constipation 10/18/21 02/22/22 History 50 mg capsule (Senna Plus) tamsulosin 0.4 mg capsule (Flomax) 0.8 mg PO HS 10/18/21 02/22/22 History topiramate 50 mg tablet (Topamax) 50 mg PO BID 10/18/21 02/22/22 History Isatu-Bid 1 cap PO BID 12/16/21 02/22/22 History dextran 70-hypromellose eye drops 1 drp OPB QID PRN Dry Eye(S) 12/16/21 02/22/22 History in a dropperette (Artificial Tears (PF) drops in a dropperette) dimethicone 1.2 %-colloidal 1 ea topical BID 12/16/21 02/22/22 History oatmeal lotion (Aveeno Daily Moisturizing) hydrocortisone 1 % topical cream 1 applic topical TID PRN itchiness 12/16/21 02/22/22 History ipratropium 20 mcg-albuterol 100 1 puff inhalation .Q 6 HRS WHILE 12/16/21 02/22/22 History mcg/actuation mist for inhalation AWAKE (Combivent Respimat) ketorolac 10 mg tablet 10 mg PO Q6H PRN Migraine Headache 12/16/21 02/22/22 History megestrol 400 mg/10 mL (40 mg/mL) 400 mg PO DAILY 12/16/21 02/22/22 History oral suspension tramadol 50 mg tablet 50 mg PO BID 12/16/21 02/22/22 History triamcinolone acetonide 0.1 % 1 applic topical BID PRN bursitis 12/16/21 02/22/22 History topical ointment vit C 250 mg-vit E 90 mg-zinc 40 1 tab PO DAILY 12/16/21 02/22/22 History mg-copper 1 bo-ujnjwu-xxunbq capsule (PreserVision AREDS-2) ciprofloxacin HCl 250 mg tablet 250 mg PO DAILY 02/22/22 02/22/22 History levothyroxine 75 mcg tablet 75 mcg PO DAILYBB 02/22/22 02/22/22 History melatonin 3 mg tablet 3 mg PO HS 02/22/22 02/22/22 History ondansetron 4 mg disintegrating 4 mg translingual Q8H PRN 02/22/22 02/22/22 History tablet NAUSEA/VOMITING paraben-cetyl alcohol-stearyl 1 applic topical BID 02/22/22 02/22/22 History alcohol-propy glycol-sls topical seed cleaner operator (Cetaphil Gentle Cleanser topical cleanser) potassium bicarbonate-citric acid 25 meq PO BIDM 02/22/22 02/22/22 History 25 mEq effervescent tablet (Effer-K) Patient History Medical History Anxiety Depression Seizures Surgical History No pertinent past surgical history Social History Smoking Status: Never smoker Second Hand Exposure: No; Do You Dip or Chew Tobacco: No; Tobacco Cessation Education Requested by Patient: No Hx Alcohol Use: No Hx Substance Use: No Preferred Language: Japanese Communication Ability: Impaired Operator Technician Required: No Beliefs That Will Affect Care: None Current Living Situation: Personal Care Facility Current Living Situation Comment: Lives in personal care facility Other Information That Helps Us Care for You: No Feels Safe at Home: Yes Safety Concerns: Feels Safe At This Time Assistive Devices: Walker Review of Systems Review of Systems: Unobtainable due to cognitive status Physical Exam Constitutional: + frail appearing ENMT: Mouth: + dry oral mucous membranes Respiratory: normal respiratory effort; no labored breathing 92% on 4L Cardiovascular: Rate/Rhythm: + irregularly irregular Gastrointestinal (Abdomen): nontender Musculoskeletal: Extremities: + muscle atrophy Skin: warm and dry Neurologic: Speech / Cognition: + abnormal cognition Genitourinary: [place] catheter Results & Data ([facility]) Vital Signs (Past 12 Hours) Vital Signs Temp Pulse Pulse Resp BP Pulse Ox O2 Del Method 02/25/22 11:23 97.5 F L 75 20 97/59 L 92 Room Air 02/25/22 07:40 98.2 F 58 L 18 108/62 90 Nasal Cannula 02/25/22 07:32 Nasal Cannula 02/25/22 07:00 57 L 02/25/22 06:01 74 18 93 Nasal Cannula 02/25/22 02:46 97.9 F 64 16 108/61 94 Nasal Cannula 02/25/22 00:56 64 O2 Flow Rate 02/25/22 11:23 4 02/25/22 07:40 4 02/25/22 07:32 2 02/25/22 07:00 02/25/22 06:01 3 02/25/22 02:46 4 02/25/22 00:56 PG Care Time/CCT Total # of Minutes Spent Total Time Spent: 64 Total Time Spent with Patient: Total time spent is greater than 50% in coordination of care (as documented) at patient's floor/unit and/or counseling patient:goals of care, hospice, prognosis, family education and support, coordination of care Coding Level of Care Code 60722 Initial Inpt Care Lvl 2 Diagnoses Confusion R41.0 Palliative care encounter Z51.5
[2022-02-25] MEDS: MIRTAZAPINE TAB 15 MG TAB PO SCH (20:32)
[2022-02-25] MEDS: TAMSULOSIN HCL 0.4 MG CAP PO SCH (20:32)
[2022-02-25] MEDS: MELATONIN 3 MG TAB PO SCH (21:38)
[2022-02-25] MEDS: ERTAPENEM SODIUM 1,000 MG in SYRINGE 0 ML IV SCH (22:44)
[2022-02-26] MEDS: PANTOprazole 40 MG TAB PO SCH (05:25)
[2022-02-26] MEDS: LEVOTHYROXINE SODIUM 75 MCG TABLET PO SCH (05:25)
[2022-02-26] MEDS: Albuterol HFA 8 GM Inhaler (Combivent Respimat P&T Subs) INH SCH (05:39)
[2022-02-26] MEDS: Ipratropium HFA Inhaler (Combivent Respimat P&T Subs) INH SCH (05:40)
[2022-02-26] MEDS ORDERED: FLUTICASONE FUROATE 200MCG 14 PUFFS/INHALER INH SCH (09:00)
[2022-02-26] MEDS: GABAPENTIN 100 MG CAP PO SCH (09:14)
[2022-02-26] MEDS: QUEtiapine FUMARATE 50 MG TABCR PO SCH (09:14)
[2022-02-26] MEDS: TOPIRAMATE 50 MG TAB PO SCH (09:15)
[2022-02-26] MEDS: MULTIVITAMIN TAB PO SCH (09:15)
[2022-02-26] MEDS: ASCORBIC ACID 500 MG TAB PO SCH (09:15)
[2022-02-26] MEDS: HEPARIN SOD 5,000 UNIT/0.5 ML VIAL SQ SCH (09:16)
[2022-02-26] MEDS: CETIRIZINE HCL 10 MG TABLET PO SCH (09:16)
[2022-02-26] MEDS: LINACLOTIDE 145 MCG CAPSULE PO SCH (09:17)
[2022-02-26] MEDS: MEGESTROL ACETATE SUSP 400 MG/10 ML UDC PO SCH (09:17)
--- NOTE | 2022-02-26 12:42 | Discharge Summary ---
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 The patient was seen recently in the hospital, admitted on 01/31/2022 and discharged on 02/06/2022. She was treated for acute UTI, recurrent ESBL. She was treated with ertapenem, completed 14 days of ertapenem on 02/15/2022 and during hospitalization, she also had acute respiratory failure. She requires 2 liters at baseline. She was treated with nebs prednisone, respiratory improved and she also found to have new T12 compression fractures, nondisplaced sternal fracture because of multiple falls, ambulatory dysfunction. She was discharged to [facility]. She stayed in [facility] for 1 week and as per son, she was back to [facility] about a week ago. As per son, since she got UTI, she has on and off confusion, the confusion not improved, but later progressively getting worsened. She had low-grade fever at [facility]. That is the reason she was brought in here. When she came to the ER, she was alert and oriented as per nursing staff, , but now she is sl eeping, not able to answer any questions, tried to wake her up but , not answering, not opening her eyes.. Son said that she was on and off confused while he was in the ER with the patient. As per son, he does not note that she has any nausea, vomiting or diarrhea. She complains of back pain. Her appetite is down. She is on regular diet, ambulates with a walker. Could not get much history currently. Admission Exam Per Admitting Provider GENERAL: The patient is old and frail, currently very drowsy, difficult to arou se. VITAL SIGNS: Temperature 36.7, pulse 70, respiratory rate 19, blood pressure 97/51, oxygen 94% on nasal cannula. HEENT: Pupils equal, could not examine the pupils. No obvious facial droop seen. NECK: No obvious neck masses seen. CARDIOVASCULAR: S1 and S2 heard. Regular rate and rhythm. No murmur, no gallop. RESPIRATORY SYSTEM: Normal AP diameter. No accessory muscle use. No wheezing, no crackles. ABDOMEN: Soft, bowel sounds present, nontender, no distention. CENTRAL NERVOUS SYSTEM: Very drowsy. Moves extremities on touch stimuli, not opening eyes and not answering any questions. EXTREMITIES: No edema, no erythema. Principal Diagnosis UTI, hospice care Discharge Exam GENERAL: The patient is old and frail, sleeping but wakes to voice HEENT: Pupils equal No obvious facial droop seen. NECK: No obvious neck masses seen. CARDIOVASCULAR: S1 and S2 heard. Regular rate and rhythm. No murmur, no gallop. RESPIRATORY SYSTEM: Normal AP diameter. No accessory muscle use. No wheezing, no crackles. ABDOMEN: Soft, bowel sounds present, nontender, no distention. CENTRAL NERVOUS SYSTEM: sleepy but wakens to verbal stimuli. Moves extremities spontaneously, answering questions mostly appropriately, did not know where she was exactly EXTREMITIES: No edema, no erythema. Discharge Data Allergies Allergy/AdvReac Type Severity Reaction Status Date / Time amitriptyline Allergy Unknown Unknown Verified 02/22/22 22:52 celecoxib [From Celebrex] Allergy Unknown ON HAR[place] Verified 02/22/22 22:52 MED LIST cyclobenzaprine [From Amrix] Allergy Unknown ON HARMONY Verified 02/22/22 22:52 MED LIST divalproex sodium Allergy Unknown ON HARMON Verified 02/22/22 22:52 [From Depakote] MED LIST iodine Allergy Unknown ON HARMONY Verified 02/22/22 22:52 MED LIST scopolamine Allergy Unknown ON HARMONY Verified 02/22/22 22:52 MED LIST tegaserod [From Zelnorm] Allergy Unknown ON HARMONY Verified 02/22/22 22:52 MED LIST zolpidem Allergy Unknown ON HARMONY Verified 02/22/22 22:52 MED LIST Consultations 02/23/22 01:45 ED Decision to Admit Stat 02/23/22 12:06 Consult Palliative Care Routine 02/23/22 14:33 Consult Infectious Diseases Routine Ordered Studies 02/22/22 22:35 CT abd pelvis wo con Urgent Hospital Course (1) Confusion: - unclear etiology, appears to be progressive - UA mostly negative but is on chronic cipro suppression therapy - urine in [place] appears cloudy with debris - started on ertapenem for history of ESBL UTIs - will continue for total of 7 days likely (2/7) - blood cultures NGTD - mental status appears to be improving and will continue to monitor for improvement - given history, age, recurrent UTIs, and frailty - Palliative care consulted for further GOC discussion, son aware and in agreement - Palliative discussion resulted in patient to be discharged back to [place] with Hospice care - discharge 02/26/2022, will stop abx on discharge (2) COPD (chronic obstructive pulmonary disease): - on home O2 2L NC at baseline - not in exacerbation at this time - continue home meds (3) Hypothyroidism: - continue home medication (4) Anemia: - stable, no signs of bleeding - will monitor for now (5) GERD (gastroesophageal reflux disease): - continue PPI (6) History of TIA (transient ischemic attack): - continue statin (7) HLD (hyperlipidemia): - continue statin (8) Depression: - continue Remeron and Lexapro Plan DVT ppx: heparin SC Code Status: DNR/DNI Dispo: telemetry Pedro Baez MD [facility] Medicine Total Time Total Time Spent Total Time Spent (In Minutes): 25 Total Time Includes: Examination of the Patient, Discharge Planning and Medication Reconciliation Discharge Plan Discharge Items Patient Disposition: Hospice - Home Reason For Visit: AMS Discharge Diagnosis: AMS, Hospice Condition on Discharge: Fair Activity: Resume your previous activity Non-emergency contact: Primary Care Provider Call non-emergency contact if: you have any medication questions and your symptoms worsen [place] [Primary Care Provider] - Diet: Regular Diet Texture: Easy to Chew Addtl Attending Provider Instructions: You were admitted with worsening confusion. You were thought to have a UTI and were started on treatment. Your mental status improved somewhat but you still go confused. Palliative care discussed with your sone about your goals of care. After discussion, it was felt to focus on your quality of life and to try and enjoy your time. It was decided that you were to return to [place] with hospice care and to focus on comfort and quality of life. Pending Studies at Discharge: No Stand-Alone Forms: [facility] Medications and DC Order Prescriptions: Continued Ajovy Syringe 225 mg/1.5 mL syringe 225 mg SUBCUT MONTHLY Rx Instructions: administer on Friday of every month @ 1300 ascorbic acid (vitamin C) [Vitamin C] 500 mg Tablet 500 mg PO DAILY escitalopram oxalate 20 mg tablet 20 mg PO QAM esomeprazole magnesium 40 mg capsule,delayed release(DR/EC) 40 mg PO DAILYBB fluticasone propionate [Flovent HFA] 220 mcg/actuation HFA aerosol inhaler 2 inh INHALATION BID Rx Instructions: 2 puffs into lungs 2 times a day gabapentin 100 mg capsule 200 mg PO BID levocetirizine 5 mg tablet 5 mg PO BID Linzess 145 mcg capsule 145 mcg PO DAILY mirtazapine [Remeron] 15 mg Tablet 7.5 mg PO HS Rx Instructions: take 1/2 tablet by mouth at bedtime multivitamin Tablet 1 tab PO DAILY hydroxyzine HCl 10 mg tablet 10 mg PO QAM PRN (Reason: Itching) hydroxyzine HCl 25 mg tablet 25 mg PO HS PRN (Reason: Itching) Excedrin Extra Strength 250-250-65 mg Tablet 1 tab PO Q6H MDD 4 doses PRN (Reason: Pain) Rx Instructions: do not exceed for doses in 24 hours Senna Plus 8.6-50 mg Capsule 2 tab-cap PO HS PRN (Reason: Constipation) Rx Instructions: take 2 tabs (17.2/100 mg) by mouth at bedtime for constipation betamethasone valerate 0.1 % ointment 1 applic TOPICAL BID PRN (Reason: dermatitis) quetiapine [Seroquel XR] 50 mg Tablet Extended Release 24 Hr 100 mg PO BID Rx Instructions: take 2 tablets by mouth twice a day rosuvastatin [Crestor] 5 mg Tablet 5 mg PO HS tamsulosin [Flomax] 0.4 mg Capsule 0.8 mg PO HS Rx Instructions: 2 capsule dose topiramate [Topamax] 50 mg Tablet 50 mg PO BID Xiidra 5 % dropperette 1 drp OPB BID acetaminophen [Tylenol] 325 mg Tablet 650 mg PO Q4 MDD 3g PRN (Reason: Fever Or Pain) Rx Instructions: use for temperature > 100f or mild pain Combivent Respimat 20-100 mcg/actuation Mist 1 puff INHALATION .Q 6 HRS WHILE AWAKE megestrol 400 mg/10 mL (40 mg/mL) suspension 400 mg PO DAILY Rx Instructions: take 10 ml dose PreserVision AREDS-2 250-90-40-1 mg Capsule 1 tab PO DAILY tramadol 50 mg tablet 50 mg PO BID Isatu-Bid 1 cap PO BID Aveeno Daily Moisturizing 1.2 % Lotion 1 ea TOPICAL BID Rx Instructions: apply to areas on back for itching ketorolac 10 mg Tablet 10 mg PO Q6H PRN (Reason: Migraine Headache) Rx Instructions: do not take with migraine relief medications Artificial Tears (PF) Dropperette 1 drp OPB QID PRN (Reason: Dry Eye(S)) hydrocortisone 1 % Cream 1 applic TOPICAL TID PRN (Reason: itchiness) triamcinolone acetonide 0.1 % Ointment 1 applic TOPICAL BID PRN (Reason: bursitis) melatonin 3 mg Tablet 3 mg PO HS levothyroxine 75 mcg Tablet 75 mcg PO DAILYBB ondansetron [Zofran ODT] 4 mg Tablet,Disintegrating 4 mg translingual Q8H PRN (Reason: NAUSEA/VOMITING) Cetaphil Gentle Cleanser Cleanser 1 applic TOPICAL BID Discontinued ciprofloxacin HCl 250 mg tablet 250 mg PO DAILY Effer-K 25 mEq Tablet, Effervescent 25 meq PO BIDM Discharge Orders: Discharge Order (Routine); Ordered 02/26/22 Ordered By: Pedro Baez Admission Data Admit Date/Time: 02/23/22 02:59 Attending Provider: Pedro Baez Admit Provider: Diego Millan [place] Other Providers: Diego Millan ; Jasmin Sahu ; Miguel Morales ; Agustin Davidson ; Anson Foote I. ; True Richards II ; Sona Daley ; Matty Spaulding ; Damien Plummer ; Melissa Casas Other Interventions: Discharge Summary Assessment (RN) Last Done: 02/26/22 08:42
--- NOTE | 2022-02-26 12:54 | Electrocardiogram Report ---
Test Reason : Blood Pressure : / mmHG Vent. Rate : 068 BPM Atrial Rate : 068 BPM P-R Int : 178 ms QRS Dur : 142 ms QT Int : 446 ms P-R-T Axes : -24 -33 -16 degrees QTc Int : 474 ms Sinus rhythm with Premature atrial complexes Left axis deviation Right bundle branch block Abnormal ECG When compared with ECG of 23-FEB-2022 10:41, Inverted T waves have replaced nonspecific T wave abnormality in Inferior leads Confirmed by Zach River ([id number]) on 02/26/2022 12:54:22 PM Referred By: REFERRED SELF Confirmed By:Luis River
== END 2022-02-26 14:05 | disposition hospice, home (50) | DRG 948 ==
LOC: ED 22:30 → 2S 02-23 04:13 → 2W 02-24 08:41